=== PATIENT | female | born 1950 | race Caucasian/White ===

== ENCOUNTER → 2017-09-11 | Outpatient (CLI) | payer MEDICARE ==
[2017-09-11 11:33] LABS: Bilirubin, Delta 0.2 mg/dL (0.0-0.2); Potassium 4.4 mmol/L (3.5-5.1); Total Bilirubin 0.3 mg/dL (0.2-1.3); Total Protein 7.4 g/dL (6.3-8.2)
[2017-09-11 11:51] LABS: Hemoglobin A1C 8.2 % (4.2-6.1)
== END | disposition home or self-care (01) ==
LOC: LABWHC1 08:29
PROVIDERS: ATTEND Internal Medicine
DX: I10 Essential (primary) hypertension (principal); E78.5 Hyperlipidemia, unspecified; E11.9 Type 2 diabetes mellitus without complications
CPT/HCPCS: 36415; 80051; 80061; 80076; 82565; 83036; 84520

== ENCOUNTER → 2017-09-27 | Outpatient (CLI) | payer MEDICARE ==
[2017-09-27 08:21] LABS: Blood Urea Nitrogen 30 mg/dL (7-17); Non-African American GFR(MDRD) 55 (>60 ml/min/1.73 sqM)
--- NOTE | 2017-09-27 14:10 | US ---
EXAMINATION TYPE: US kidneys/renal and bladder DATE OF EXAM: 09/27/2017 COMPARISON: NONE CLINICAL HISTORY: R94.5 elevated renal test. Elevated renal function test, diabetes EXAM MEASUREMENTS: Right Kidney: 10.6 x 4.6 x 4.6 cm Left Kidney: 11.1 x 5.0 x 4.7 cm Right Kidney: no evidence of hydronephrosis or mass. No evidence of hydronephrosis. Left Kidney: cystic area mid = 0.7 x 0.5 x 0.6cm with a well-defined posterior wall but no definitive increased through transmission. No hydronephrosis. Bladder: appears wnl Bilateral Jets seen: yes There is no evidence for hydronephrosis at this point in time. No nephrolithiasis is seen. The urina ry bladder is anechoic. Bilateral ureteral jets are seen. IMPRESSION: 1. No evidence of hydronephrosis or nephrolithiasis. 2. Probable 7 mm left renal cyst.
== END | disposition home or self-care (01) ==
LOC: RADUSWWP 07:41
PROVIDERS: ATTEND Internal Medicine
DX: R94.4 Abnormal results of kidney function studies (principal); N28.9 Disorder of kidney and ureter, unspecified
CPT/HCPCS: 36415; 76770; 82565; 84520

== ENCOUNTER → 2017-10-27 | Outpatient (CLI) | payer MEDICARE ==
[2017-10-27 11:19] LABS: Anion Gap 8 mmol/L; Blood Urea Nitrogen 16 mg/dL (7-17); Carbon Dioxide 28 mmol/L (22-30); Chloride 105 mmol/L (98-107); Non-African American GFR(MDRD) >60 (>60 ml/min/1.73 sqM); Potassium 4.7 mmol/L (3.5-5.1); Sodium 141 mmol/L (137-145)
== END | disposition home or self-care (01) ==
LOC: LABWHC1 10:16
PROVIDERS: ATTEND Physician Assistant
DX: N28.9 Disorder of kidney and ureter, unspecified (principal); I10 Essential (primary) hypertension
CPT/HCPCS: 36415; 80051; 82565; 84520

== ENCOUNTER 2018-12-14 22:51 | Emergency (ER) | payer MEDICARE ==
[2018-12-14 23:33] VITALS: RESP 18
[2018-12-15] MEDS ORDERED: PROPARACAINE 0.5% OPHTH DROPS 15 ML BTL BOTH EYES STA (00:01)
[2018-12-15] MEDS ORDERED: MOXIFLOXACIN HCL 0.5% DROPS 3 ML BTL RIGHT EYE STA (00:17)
--- NOTE | 2018-12-15 00:39 | ED ---
Eye Problem HPI - General Chief complaint: Eye Problems Stated complaint: [facility] soap in eye Time Seen by Provider: 12/14/18 23:57 Source: patient, family, RN notes reviewed, old records reviewed Mode of arrival: ambulatory Limitations: no limitations - History of Present Illness Initial comments: 68 year old female with history of cataract removal years ago presents with left eye pain after soap was squirted in the eye. She has attemptod to flush with no relief. MD chief complaint: eye pain Onset/Timin -: hour(s) Onset Description: sudden Location: left eye If Injury: other (soap squirted in eye) Eye Symptoms: burning, redness, discharge, blurry vision Severity: moderate Treatments Prior to Arrival: irrigated eye - Related Data Home Medications Medication Instructions Recorded Confirmed Aspirin 81 mg PO DAILY 12/18/14 12/14/18 Qnrwjuxybx-RWJ-Gecturi-Codeine 1 - 2 each PO DAILY PRN 12/18/14 12/14/18 [Fiorinal w/Cod 63-516-66-30MG] Ibuprofen [Motrin] 800 mg PO BID PRN 12/18/14 12/14/18 Insulin Aspart Protam & Aspart 30 unit SQ AC-SUPPER 12/18/14 12/14/18 [NovoLOG Mix 70-30 Flexpen] Insulin Aspart Protam & Aspart 50 unit SQ AC-BRKFST 12/18/14 12/14/18 [NovoLOG Mix 70-30 Flexpen] Moxifloxacin HCl [Avelox] 400 mg PO 1800 12/18/14 12/14/18 Olmesartan Medoxomil [Benicar] 40 mg PO DAILY 12/18/14 12/14/18 Pravastatin Sodium [Pravachol] 20 mg PO HS 12/18/14 12/14/18 Pregabalin [Lyrica] 50 mg PO HS 12/18/14 12/14/18 Propranolol HCl [Propranolol HCl 160 mg PO DAILY 12/18/14 12/14/18 ER] glipiZIDE/METFORMIN HCL 2 each PO BID 12/18/14 12/14/18 [glipiZIDE/METFORMIN HCL 5-500 mg] Allergies Allergy/AdvReac Type Severity Reaction Status Date / Time Penicillins Allergy Rash/Hives Verified 12/14/18 23:33 Review of Systems ROS Statement: Those systems with pertinent positive or pertinent negative responses have been documented in the HPI. ROS Other: All systems not noted in ROS Statement are negative. Past Medical History Past Medical History: Diabetes Mellitus, Hyperlipidemia, Hypertension, Pneumonia Additional Past Medical History / Comment(s): migraines,bronchitis, "chest xray showed inflammation in my lung", History of Any Multi-Drug Resistant Organisms: None Reported Past Surgical History: Breast Surgery, Section, Tonsillectomy Additional Past Surgical History / Comment(s): amadou mastectomy- left lymphadenectomy, cataracts, Past Anesthesia/Blood Transfusion Reactions: Motion Sickness, Postoperative Nausea & Vomiting (PONV) Past Psychological History: No Psychological Hx Reported Smoking Status: Never smoker Past Alcohol Use History: None Reported Past Drug Use History: None Reported - Past Family History Mother Family Medical History: Cancer Sister(s) Family Medical History: Cancer General Exam - General Exam Comments Initial Comments: 68 year old female, no distress. Limitations: no limitations General appearance: alert, in no apparent distress Head exam: Present: atraumatic, normocephalic, normal inspection Eye exam: Present: PERRL, EOMI. Absent: normal appearance (left eye injection. Small 2m corneal abrasion over medial pupil and 11 oclock position), scleral icterus, conjunctival injection, periorbital swelling ENT exam: Present: normal exam, mucous membranes moist Neck exam: Present: normal inspection. Absent: tenderness, meningismus, lymphadenopathy Respiratory exam: Present: normal lung sounds bilaterally. Absent: respiratory distress, wheezes, rales, rhonchi, stridor Cardiovascular Exam: Present: regular rate, normal rhythm, normal heart sounds. Absent: systolic murmur, diastolic murmur, rubs, gallop, clicks GI/Abdominal exam: Present: soft, normal bowel sounds. Absent: distended, tenderness, guarding, rebound, rigid Course Vital Signs 12/14/18 12/15/18 23:29 00:54 Temperature 97.9 F 98.1 F Pulse Rate 80 66 Respiratory 18 18 Rate Blood Pressure 184/73 143/73 O2 Sat by Pulse 97 98 Oximetry Medical Decision Making - Medical Decision Making 68 year old female with left eye pain after soap exposure in eye. Dsciscussed patient has flushed at this ooint nect time she would be treated. she has small corneal abrasion at pupill to 11 o clock position fo r one day. . She compans as well for hair appt, discusessed patient will have refferal to pedicure and fall necessetities. Discussed PCP and optho follow up. Disposition Clinical Impression: Corneal abrasion, Foreign body, eye Disposition: HOME SELF-CARE Condition: Good Instructions: Corneal Abrasion (ED) Additional Instructions: Patient advised to follow up with primary care physician in tile setter. Use the eye drops every 4 hours as directed. If symptoms continue to persist after the next 1-2 days follow-up with ophthalmology. Return to emergency department if any alarming signs or symptoms occur. Is patient prescribed a controlled substance at d/c from ED?: No Referrals: Kay Martinez MD [Primary Care Provider] - 1-2 days Soren Jovel MD [STAFF PHYSICIAN] - 1-2 days Time of Disposition: 00:38
[2018-12-15 00:55] VITALS: BP 143/73; PULSE 66; TEMP 98.1
== END 2018-12-15 00:57 | disposition home or self-care (01) ==
LOC: EC 22:51
DX: T15.02XA Foreign body in cornea, left eye, initial encounter (principal); E78.5 Hyperlipidemia, unspecified; I10 Essential (primary) hypertension; E11.9 Type 2 diabetes mellitus without complications; Z88.0 Allergy status to penicillin; Z79.4 Long term (current) use of insulin; Z79.82 Long term (current) use of aspirin; Z79.899 Other long term (current) drug therapy; Z87.01 Personal history of pneumonia (recurrent); Z87.09 Personal history of other diseases of the respiratory system; Z98.890 Other specified postprocedural states
CPT/HCPCS: 99283

== ENCOUNTER → 2019-01-18 | Outpatient (CLI) | payer MEDICARE ==
--- NOTE | 2019-01-18 15:55 | US ---
EXAMINATION TYPE: US transvaginal DATE OF EXAM: 01/18/2019 COMPARISON: NONE CLINICAL HISTORY: N92.1 Excessive and frequent menstruation. post menopausal bleeding for two weeks. TECHNIQUE: Transvaginal (TV). Date of LMP: post menopausal, no HRT. EXAM MEASUREMENTS: Uterus: 7.6 x 3.9 x 4.5 cm Endometrial Stripe: 2.0 cm Right Ovary: not identified Left Ovary: not identified 1. Uterus: Retroverted wnl 2. Endometrium: thickened and irregular 3. Right Ovary: not identified 4. Left Ovary: not identified. 5. Bilateral Adnexa: wnl 6. Posterior cul-de-sac: no free fluid IMPRESSION: 1. Thickened endometrial stripe at 2.0 cm. 2. There is some limitation with nonvisualization of the ovaries during the exam.
== END | disposition home or self-care (01) ==
LOC: RADUSWWP 15:17
PROVIDERS: ATTEND Internal Medicine
DX: R93.89 Abnormal findings on diagnostic imaging of other specified body structures (principal); N92.1 Excessive and frequent menstruation with irregular cycle; N94.6 Dysmenorrhea, unspecified; Z88.0 Allergy status to penicillin
CPT/HCPCS: 76830

== ENCOUNTER → 2019-03-06 | Outpatient (CLI) | payer MEDICARE ==
[2019-03-06 13:29] LABS: Basophils % (A) 1 %; Eosinophils # (A) 0.2 k/uL (0-0.7); Eosinophils % (A) 4 %; HCT 45.2 % (34.0-46.0); HGB 14.9 gm/dL (11.4-16.0); Lymphocytes # (A) 1.6 k/uL (1.0-4.8); Lymphocytes % (A) 27 %; MCH 28.9 pg (25.0-35.0); MCV 87.7 fL (80.0-100.0); Mean Platelet Volume 8.7; Monocytes # (A) 0.2 k/uL (0-1.0); Monocytes % (A) 4 %; Neutrophils # (A) 3.6 k/uL (1.3-7.7); Neutrophils % (A) 63 %; Platelet Count 172 k/uL (150-450); RBC 5.15 m/uL (3.80-5.40); RDW 15.2 % (11.5-15.5); WBC 5.8 k/uL (3.8-10.6)
== END | disposition home or self-care (01) ==
LOC: LABWHC1 12:16
PROVIDERS: ATTEND Obstetrics & Gynecology
DX: Z01.818 Encounter for other preprocedural examination (principal); Z01.812 Encounter for preprocedural laboratory examination
CPT/HCPCS: 36415; 85025; 93005

== ENCOUNTER 2019-03-14 07:17 | Day surgery (SDC) | payer MEDICARE ==
[2019-03-11 13:20] VITALS: BMI 39.4
[~2019-03-14 07:17] MED LIST: DEXAMETHASONE SOD PHOSPHATE 10 MG/ML 1 ML VIAL IV ONE; HYDROmorphone 0.5 MG/0.5 ML SYRINGE IVP PRN; LACTATED RINGERS 1,000 ML IV SCH; LIDOCAINE 1% 20 ML VIAL (10MG/ML) FOR IV START INTRADERMA PRN; ONDANSETRON 4 MG/2 ML VIAL IVP ONE; Pre Op ABX Message 1 EACH MISC MISCELLANE ONE
--- NOTE | 2019-03-14 07:18 | P.HPOB ---
History of Present Illness H&P Date: 03/14/19 Chief Complaint: Postmenopausal bleeding 69-year-old presents for D&C hysteroscopy due to postmenopausal bleeding and endometrial thickening on ultrasound. Review of Systems All systems: negative Constitutional: Denies chills, Denies fever Eyes: denies blurred vision, denies pain Ears, nose, mouth and throat: Denies headache, Denies sore throat Cardiovascular: Denies chest pain, Denies shortness of breath Respiratory: Denies cough Gastrointestinal: Denies abdominal pain, Denies diarrhea, Denies nausea, Denies vomiting Genitourinary: Denies dysuria, Denies hematuria Musculoskeletal: Denies myalgias Integumentary: Denies pruritus, Denies rash Neurological: Denies numbness, Denies weakness Psychiatric: Denies anxiety, Denies depression Endocrine: Denies fatigue, Denies weight change Past Medical History Past Medical History: Cancer, Diabetes Mellitus, Hyperlipidemia, Hypertension Additional Past Medical History / Comment(s): migraines,bronchitis, "chest xray showed inflammation in my lung", HX BREAST CANCER AMD LT LYMPHADENOPATHY. POST MENOPAUSAL BLEEDING History of Any Multi-Drug Resistant Organisms: None Reported Past Surgical History: Breast Surgery, Section, Tonsillectomy Additional Past Surgical History / Comment(s): amadou mastectomy- left lymphadenectomy, cataracts, BRONCHOSCOPY WITH REMOVAL OF MUCUS PLUG FROM RT MIDDLE LOBE Past Anesthesia/Blood Transfusion Reactions: Motion Sickness, Postoperative Nausea & Vomiting (PONV) Smoking Status: Never smoker - Past Family History Mother Family Medical History: Cancer Sister(s) Family Medical History: Cancer Medications and Allergies Home Medications Medication Instructions Recorded Confirmed Type Aspirin 81 mg PO DAILY 12/18/14 03/11/19 History Hzbotljqlu-RQY-Mcqmkjz-Codeine 1 - 2 each PO DAILY PRN 12/18/14 03/11/19 History [Fiorinal w/Cod 32-842-31-30MG] Pregabalin [Lyrica] 50 mg PO HS 12/18/14 03/11/19 History Propranolol HCl [Propranolol HCl 160 mg PO DAILY 12/18/14 03/11/19 History ER] Furosemide [Lasix] 20 mg PO Q2D 03/11/19 03/11/19 History Glimepiride [Amaryl] 2 mg PO BID 03/11/19 03/11/19 History Insulin Lispro Protamin/Lispro 70 unit SQ BID 03/11/19 03/11/19 History [Humalog Mix 75-25 Kwikpen] LORazepam [Ativan] 0.5 mg PO DAILY PRN 03/11/19 03/11/19 History Meclizine [Antivert] 25 mg PO DAILY PRN 03/11/19 03/11/19 History Pravastatin Sodium [Pravachol] 20 mg PO HS 03/11/19 03/11/19 History amLODIPine BESYLATE 10 mg PO DAILY 03/11/19 03/11/19 History Allergies Allergy/AdvReac Type Severity Reaction Status Date / Time Penicillins Allergy Rash/Hives Verified 03/11/19 13:06 Exam Osteopathic Statement: *. No significant issues noted on an osteopathic structural exam other than those noted in the History and Physical/Consult. Heart: Regular rate and rhythm Lungs: Clear to auscultation bilaterally Abdomen: Soft, nontender Extremities: Negative Homans sign Assessment and Plan (1) Postmenopausal bleeding Status: Acute Code(s): N95.0 - POSTMENOPAUSAL BLEEDING SNOMED Code(s): 39055789 Plan: 1. D&C hysteroscopy
[2019-03-14 07:59] LABS: Glucose,Whole Blood 119 mg/dL (75-99)
[2019-03-14] MEDS: MIDAZOLAM 2 MG/2 ML VIAL IVP ONE ×2 (08:09→08:11)
[2019-03-14] MEDS ORDERED: LIDOCAINE 1% INJ 10MG/ML (20 ML MDV) ONE (08:45)
[2019-03-14] MEDS ORDERED: PROPOFOL 10 MG/ML 20 ML VIAL IV ONE (08:45)
[2019-03-14] MEDS ORDERED: MIDAZOLAM 2 MG/2 ML VIAL ONE (08:45)
[2019-03-14] MEDS ORDERED: fentaNYL (PF) 50 MCG/ML 2 ML AMP ONE (08:45)
--- NOTE | 2019-03-14 08:45 | P.OP ---
Date of Procedure: 03/14/19 Preoperative Diagnosis: 1. Post menopausal bleeding Postoperative Diagnosis: 1. Post menopausal bleeding Procedure(s) Performed: D&C with polypectomy and hysteroscopy Anesthesia: MAC Surgeon: Sherry Mariano Estimated Blood Loss (ml): 5 IV fluids (ml): 300 Urine output (ml): 75 Pathology: other (Endometrial curettings with polyp) Condition: stable Disposition: PACU Indications for Procedure: This is a 69-year-old presenting for D&C hysteroscopy due to postmenopausal bleeding. She did have an ultrasound that showed a 2 cm endometrial thickening. Operative Findings: Uterus sounded to 9 cm, hysteroscopy showed mostly a smooth contour of the uterus but there was a large polyp on the left side. Description of Procedure: Patient is taken the operating room where general anesthesia was obtained without difficulty. She is prepped and draped in normal sterile fashion dorsal lithotomy position, legs placed in candycane stirrups. Bladder was drained of all urine. Weighted speculum placed in the vagina the anterior lip the cervix was grasped with single-tooth tenaculum. The cervix was dilated to #7 Hegar dilator. Uterus sounded to 9 cm. Hysteroscopy was then performed. There was some blood and mucus going into the endometrial cavity, and a polyp noted along the posterior left wall of the uterus in the lower uterine segment. A sharp curette was then gently used to obtain endometrial curettings and polyp forceps were also used. Moderate amount of endometrial curettings including was believed to be that polyp was removed and sent to pathology. All instruments removed from the vagina. Patient tolerated the procedure well. Sponge and instrument counts are correct 2. She was taken to recovery room in stable condition.
[2019-03-14 09:24] VITALS: TEMP 97.3
[2019-03-14] MEDS ORDERED: KETOROLAC 30 MG/ML 1 ML VIAL IVP ONE (09:33)
[2019-03-14 09:36] LABS: Glucose,Whole Blood 137 mg/dL (75-99)
[2019-03-14 10:40] VITALS: BP 126/60
[2019-03-14 10:46] VITALS: PULSE 59; RESP 16
== END 2019-03-14 11:34 | disposition home or self-care (01) ==
LOC: OR 07:17
PROVIDERS: ATTEND Obstetrics & Gynecology
DX: C54.1 Malignant neoplasm of endometrium (principal); E11.9 Type 2 diabetes mellitus without complications; E78.5 Hyperlipidemia, unspecified; I10 Essential (primary) hypertension; Z79.4 Long term (current) use of insulin; Z79.82 Long term (current) use of aspirin; Z85.3 Personal history of malignant neoplasm of breast; Z88.0 Allergy status to penicillin; Z79.899 Other long term (current) drug therapy
CPT/HCPCS: 88305; 88342; 88341; 58558; J2250; J1100; J2405; J2001; J3010; J1885; J2704

== ENCOUNTER → 2019-03-29 | Outpatient (CLI) | payer MEDICARE ==
[2019-03-29 10:55] LABS: Albumin 4.5 g/dL (3.80-4.90); Albumin/Globulin Ratio 2.14 (1.60-3.17); Anion Gap 9.6 mmol/L (4.00-12.00); Calcium 9.3 mg/dL (8.7-10.3); Carbon Dioxide 24.4 mmol/L (21.6-31.8); Globulin 2.1 g/dL (1.6-3.3); LDL Cholesterol,Calculated 100.8 mg/dL (0.0-131.0); Potassium 3.9 mmol/L (3.5-5.5); Total Bilirubin 0.9 mg/dL (0.3-1.2); Total Protein 6.6 g/dL (6.2-8.2); VLDL Calculation 17.2 mg/dL (5.00-40.00)
[2019-03-29 16:04] LABS: Hemoglobin A1C 9.4 % (4.0-6.0)
== END | disposition home or self-care (01) ==
LOC: LABWHC1 06:57
PROVIDERS: ATTEND Internal Medicine
DX: I12.9 Hypertensive chronic kidney disease with stage 1 through stage 4 chronic kidney disease, or unspecified chronic kidney disease (principal); N18.9 Chronic kidney disease, unspecified; E11.22 Type 2 diabetes mellitus with diabetic chronic kidney disease
CPT/HCPCS: 36415; 80053; 80061; 83036

== ENCOUNTER → 2019-10-21 | Outpatient (CLI) | payer MEDICARE ==
[2019-10-21 15:50] LABS: African American GFR (CKD) 75.1 (60.0-200.0); Anion Gap 7.3 mmol/L (4.00-12.00); BUN/Creat Ratio 25.56 Ratio (12.00-20.00); Calcium 9.2 mg/dL (8.7-10.3); Carbon Dioxide 26.7 mmol/L (21.6-31.8); Non-African American GFR(CKD) 64.8 (60.0-200.0); Potassium 4.3 mmol/L (3.5-5.5)
[2019-10-21 16:50] LABS: Hemoglobin A1C 11.4 % (4.0-6.0)
== END | disposition home or self-care (01) ==
LOC: LABWHC1 09:11
PROVIDERS: ATTEND Internal Medicine
DX: I10 Essential (primary) hypertension (principal); E11.9 Type 2 diabetes mellitus without complications
CPT/HCPCS: 36415; 80048; 83036

== ENCOUNTER → 2019-10-25 | Outpatient (CLI) | payer MEDICARE ==
--- NOTE | 2019-10-25 14:38 | CT ---
EXAMINATION TYPE: CT abdomen pelvis w con DATE OF EXAM: 10/25/2019 COMPARISON: None HISTORY: History of breast and endometrial cancer. Complete hysterectomy . CT DLP: 1787 mGycm CONTRAST: CT scan of the abdomen and pelvis is performed with Oral Contrast and with IV Contrast, patient injec ruben with 100 mL of Isovue M300. FINDINGS: LUNG BASES-: No visible nodule. No infiltrate. LIVER/GB: There is evidence of hepatic steatosis. No calcified gallstones. No space occupying hepat ic lesion. Biliary tree is of normal caliber. PANCREAS: No inflammation. No distinct mass. SPLEEN: No splenic enlargement. No lesion seen. ADRENALS: No nodule. No thickening. KIDNEYS/BLADDER: No hydronephrosis. No nephrolithiasis. No distinct renal mass. Urinary bladder g rossly unremarkable. BOWEL: Normal appendix. Normal bowel caliber. No inflammation. Diverticulosis without evidence of d iverticulitis. GENITAL ORGANS: Hysterectomy changes noted. Unremarkable appearing vaginal cuff. The ovaries are not clearly visualized. LYMPH NODES: No greater than 1cm abdominal or pelvic lymph nodes are appreciated. AORTA: No significant abnormality. OSSEOUS STRUCTURES: No significant abnormality is seen. OTHER: No significant additional abnormality is seen. IMPRESSION: 1. No evidence for recurrent disease or metastatic disease. 2. Hepatic steatosis.
== END | disposition home or self-care (01) ==
LOC: RADCTMAIN 12:20
PROVIDERS: ATTEND Obstetrics & Gynecology
DX: Z08 Encounter for follow-up examination after completed treatment for malignant neoplasm (principal); K76.0 Fatty (change of) liver, not elsewhere classified; Z85.42 Personal history of malignant neoplasm of other parts of uterus
CPT/HCPCS: 74177

== ENCOUNTER → 2020-05-28 | Outpatient (CLI) | payer MEDICARE ==
[2020-05-28 08:34] LABS: HCT 38.9 % (34.0-46.0); HGB 12.7 gm/dL (11.4-16.0); Hypochromasia Slight; MCH 30.8 pg (25.0-35.0); MCHC 32.6 g/dL (31.0-37.0); MCV 94.4 fL (80.0-100.0); Mean Platelet Volume 9.7; Platelet Count 138 k/uL (150-450); RBC 4.12 m/uL (3.80-5.40); RDW 13.6 % (11.5-15.5)
[2020-05-28 17:16] LABS: African American GFR (CKD) 65.6 (60.0-200.0); Albumin/Globulin Ratio 1.82 (1.60-3.17); Anion Gap 11.2 mmol/L (4.00-12.00); Carbon Dioxide 21.8 mmol/L (21.6-31.8); Chol/HDL Ratio 3.68; Globulin 2.2 g/dL (1.6-3.3); Non-African American GFR(CKD) 56.6 (60.0-200.0); Potassium 3.9 mmol/L (3.5-5.5); Total Bilirubin 0.5 mg/dL (0.2-1.2); Total Protein 6.2 g/dL (6.2-8.2)
[2020-05-28 17:22] LABS: T4, Free (Free Thyroxine) 1.1 ng/dL (0.80-1.80)
[2020-05-28 19:55] LABS: Hemoglobin A1C 10.5 % (4.0-6.0)
== END | disposition home or self-care (01) ==
LOC: LABWHC1 07:51
PROVIDERS: ATTEND Obstetrics & Gynecology
DX: I10 Essential (primary) hypertension (principal); E11.9 Type 2 diabetes mellitus without complications; E78.5 Hyperlipidemia, unspecified; R53.83 Other fatigue; N19 Unspecified kidney failure
CPT/HCPCS: 36415; 80053; 80061; 83036; 84439; 84443; 84481; 85027

== ENCOUNTER → 2020-06-12 | Outpatient (CLI) | payer MEDICARE ==
--- NOTE | 2020-06-12 15:58 | CT ---
EXAMINATION TYPE: CT abdomen pelvis w con DATE OF EXAM: 06/12/2020 COMPARISON: 10/25/2019 HISTORY: Hx endometrial/breast ca CT DLP: 1977.70 mGycm CONTRAST: CT scan of the abdomen and pelvis is performed with Oral Contrast and with IV Contrast, patient injec ruben with 100 mL of Isovue 300. FINDINGS: LUNG BASES-: No visible nodule. No infiltrate. LIVER/GB: No calcified gallstones. Hepatic steatosis. No space occupying hepatic lesion. Biliary t ree is of normal caliber. PANCREAS: No inflammation. No distinct mass. SPLEEN: No splenic enlargement. No lesion seen. ADRENALS: No nodule. No thickening. KIDNEYS/BLADDER: No hydronephrosis. No nephrolithiasis. No distinct renal mass. Urinary bladder g rossly unremarkable. BOWEL: Normal appendix. Normal bowel caliber. No inflammation. GENITAL ORGANS: Hysterectomy changes noted. No evidence for recurrent or residual mass. No adnexal m ass. LYMPH NODES: No greater than 1cm abdominal or pelvic lymph nodes are appreciated. AORTA: No significant abnormality. OSSEOUS STRUCTURES: No significant abnormality is seen. OTHER: No significant additional abnormality is seen. IMPRESSION: 1.
== END | disposition home or self-care (01) ==
LOC: RADCTMAIN 13:35
PROVIDERS: ATTEND Obstetrics & Gynecology
DX: Z08 Encounter for follow-up examination after completed treatment for malignant neoplasm (principal); Z85.42 Personal history of malignant neoplasm of other parts of uterus; Z85.3 Personal history of malignant neoplasm of breast
CPT/HCPCS: 82565; 84520; 74177; Q9967

== ENCOUNTER → 2021-08-17 | Outpatient (CLI) | payer MEDICARE ==
--- NOTE | 2021-08-17 10:35 | XR ---
EXAMINATION TYPE: XR chest 2V DATE OF EXAM: 08/17/2021 COMPARISON: None INDICATION: Endometrial cancer, observation for metastases TECHNIQUE: Frontal and lateral views of the chest are obtained. FINDINGS: The heart size is normal. The pulmonary vasculature is normal. The lungs are clear. No suspicious nodules or mediastinal widening is evident. Loop recorder overlie s left chest. IMPRESSION: 1. No acute pulmonary process.
== END | disposition home or self-care (01) ==
LOC: RADXRMAIN 09:50
PROVIDERS: ATTEND Obstetrics & Gynecology
DX: C54.1 Malignant neoplasm of endometrium (principal)
CPT/HCPCS: 71046

== ENCOUNTER → 2021-08-27 | Outpatient (CLI) | payer MEDICARE ==
[2021-08-27 13:45] LABS: African American GFR (CKD) >90 (>60 ml/min/1.73 sqM); Blood Urea Nitrogen 20 mg/dL (7-17); Non-African American GFR(CKD) 87 (>60 ml/min/1.73 sqM)
--- NOTE | 2021-08-27 15:36 | CT ---
EXAMINATION TYPE: CT abdomen pelvis w con DATE OF EXAM: 08/27/2021 HISTORY: Endometrial cancer with mets. CT DLP: 1683.3mGycm Automated Exposure Control for Dose Reduction was Utilized. CONTRAST: CT scan of the abdomen and pelvis is performed with oral and with IV Contrast, patient injected with 100 mL of Isovue M300. COMPARISON: Prior CT June 12, 2020 and older study October 25, 2019 FINDINGS: LUNG BASES: No significant abnormality is appreciated. LIVER/GB: Prior visualized lesion along the right aspect of liver not clearly identified on current s tudy near axial image 24. PANCREAS: Mild generalized atrophy report demonstrated. SPLEEN: No significant abnormality is seen. ADRENALS: No significant abnormality is seen. KIDNEYS: No significant abnormality is seen. BOWEL: Some diverticula in the left and sigmoid colon. No CT evidence for acute diverticulitis. No thakkar spicious small or large bowel dilatation. Normal appearing appendix from cecum right lower quadrant. UTERUS/ADNEXA: Uterus is surgically absent. LYMPH NODES: No new greater than 1cm abdominal or pelvic lymph nodes are appreciated. Some prominent but subcentimeter retroperitoneal lymph nodes are not significantly changed from most recent CT for e xample left external iliac chain lymph node axial image 71 OSSEOUS STRUCTURES: Moderate axial joint space loss in both hips. OTHER: No significant additional abnormality is seen. IMPRESSION: Positive treatment response or surgical excision of the lesion adjacent to right hepatic lobe. No new suspicious mass or adenopathy identified
== END | disposition home or self-care (01) ==
LOC: RADCTMAIN 12:48
PROVIDERS: ATTEND Obstetrics & Gynecology
DX: K57.30 Diverticulosis of large intestine without perforation or abscess without bleeding (principal); K86.89 Other specified diseases of pancreas; Z85.42 Personal history of malignant neoplasm of other parts of uterus
CPT/HCPCS: 82565; 84520; 74177; 36415; Q9967 ×2

== ENCOUNTER → 2021-10-14 | Outpatient (CLI) | payer MEDICARE ==
--- NOTE | 2021-10-14 15:12 | BD ---
EXAMINATION TYPE: Axial Bone Density DATE OF EXAM: 10/14/2021 COMPARISON: NONE CLINICAL HISTORY: Height: 63 Weight: 199.2 FRAX RISK QUESTIONS: Alcohol (3 or more units per day): no Family History (Parent hip fracture): no Glucocorticoids (More than 3mos): no (Ex: prednisone, prednisolone, methylprednisolone, dexamethasone, and hydrocortisone). History of Fracture in Adulthood: no Secondary Osteoporosis: 1. Type 1 Diabetes: no 2. Hyperthyroidism: no 3. Menopause before 45: no 4. Malnutrition: no 5. Chronic liver disease: no Rheumatoid Arthritis: no Current Tobacco Use: no RISK FACTORS HISTORY OF: Surgery to Spine/Hip(right/left)/Wrist (right/left): no Family History of Osteoporosis: yes Active: no Diet low in dairy products/other sources of calcium: yes Postmenopausal woman: yes Lost more than 2 inches in height since high school: no MEDICATIONS: metformin, Xarelto, heart meds, blood pressure, cholesterol, vitamins, generic of lyrica , muscle relaxers, Additional History: EXAM MEASUREMENTS: Bone mineral densitometry was performed using the [employer] System. Bone mineral density as measured about the Lumbar spine is: ----- L1-L4(G/cm2): 1.213 T Score Values are as follows: ----- L2: 0.5 ----- L3: 1.7 ----- L4: -0.1 ----- L1-L4: 0.3 Bone mineral density : baseline Bone mineral density about the R hip (g/cm2): 0.732 Bone mineral density about the L hip (g/cm2): 0.690 T Score values are as follows: -----R Neck: -2.2 -----L Neck: -2.5 -----R Total: -1.9 -----L Total: -1.5 Bone mineral density : baseline IMPRESSION: Osteopenia bilateral femora. NOTE: T-SCORE=SD OF THE YOUNG ADULT MEAN.
== END ==
LOC: RADBDWWP 13:57
PROVIDERS: ATTEND Internal Medicine Endocrinology, Diabetes & Metabolism
DX: M81.0 Age-related osteoporosis without current pathological fracture (principal)
CPT/HCPCS: 77080

== ENCOUNTER → 2021-10-15 | Outpatient (CLI) | payer MEDICARE ==
[2021-10-15 17:39] LABS: ALT 13 U/L (8-44); AST 17 U/L (13-35); African American GFR (CKD) 85.4 (60.0-200.0); Albumin 4.3 g/dL (3.8-4.9); Albumin/Globulin Ratio 1.87 (1.60-3.17); Alkaline Phosphatase 81 U/L (41-126); Calcium 9.7 mg/dL (8.7-10.3); Carbon Dioxide 22.1 mmol/L (21.6-31.8); Chloride 105 mmol/L (96-109); Chol/HDL Ratio 3.71 Ratio; Globulin 2.3 g/dL (1.6-3.3); Glucose 134 mg/dL (70-110); LDL Cholesterol,Calculated 103.9 mg/dL (0.0-131.0); Non-African American GFR(CKD) 73.7 (60.0-200.0); Potassium 4.1 mmol/L (3.5-5.5); Sodium 141 mmol/L (135-145); Total Protein 6.6 g/dL (6.2-8.2); VLDL Calculation 18.76 mg/dL (5.00-40.00)
[2021-10-15 22:03] LABS: Microalbumin Creatinine Ratio <30 mg/g Creat (0-30); Urine Creatinine 68.6 mg/dL (28.0-217.0)
== END | disposition home or self-care (01) ==
LOC: LABWHC1 08:37
PROVIDERS: ATTEND Internal Medicine Endocrinology, Diabetes & Metabolism
DX: E11.65 Type 2 diabetes mellitus with hyperglycemia (principal)
CPT/HCPCS: 36415; 80053; 80061; 82043; 82570; 82607; 83036; 84443

== ENCOUNTER → 2022-01-27 | Outpatient (CLI) | payer MEDICARE ==
[2022-01-27 15:53] LABS: ALT 19 U/L (8-44); AST 14 U/L (13-35); Albumin 4.4 g/dL (3.8-4.9); Albumin/Globulin Ratio 1.91 (1.60-3.17); Alkaline Phosphatase 80 U/L (41-126); BUN/Creat Ratio 23.89 Ratio (12.00-20.00); Blood Urea Nitrogen 21.5 mg/dL (9.0-27.0); Calcium 9.5 mg/dL (8.7-10.3); Carbon Dioxide 22.4 mmol/L (20.0-27.5); Chloride 106 mmol/L (96-109); Chol/HDL Ratio 2.87 Ratio; Globulin 2.3 g/dL (1.6-3.3); Glucose 158 mg/dL (70-110); LDL Cholesterol,Calculated 81.3 mg/dL (0.0-131.0); Non-African American GFR(CKD) 63.9 (60.0-200.0); Potassium 4.3 mmol/L (3.5-5.5); Sodium 141 mmol/L (135-145); Total Protein 6.7 g/dL (6.2-8.2); VLDL Calculation 16.54 mg/dL (5.00-40.00)
[2022-01-27 21:07] LABS: Urine Creatinine 82.6 mg/dL (28.0-217.0)
== END | disposition home or self-care (01) ==
LOC: LABWHC1 09:33
PROVIDERS: ATTEND Internal Medicine Endocrinology, Diabetes & Metabolism
DX: E11.65 Type 2 diabetes mellitus with hyperglycemia (principal)
CPT/HCPCS: 36415; 80053; 80061; 82043; 82570; 83036; 84443

== ENCOUNTER → 2022-02-07 | Outpatient (CLI) | payer MEDICARE ==
--- NOTE | 2022-02-07 15:01 | CT ---
EXAMINATION TYPE: CT ChestAbdPelvis w con DATE OF EXAM: 02/07/2022 COMPARISON: 08/27/2021, 06/12/2020, 12/19/2014 HISTORY: 72-year-old female C54.1, uterine, breast, liver and endometrium ca TECHNIQUE: Contiguous axial scanning of the chest, abdomen, and pelvis performed with IV Contrast, pa tient injected with 80ml mL of Isovue 300. Delayed images through the kidneys were obtained. Coronal/ sagittal reconstructions performed. CT DLP: 1735 mGycm Automated exposure control for dose reduction was used. FINDINGS: CHEST: Heart normal size without pericardial effusion. Aorta normal caliber with minimal atherosclerotic arch calcifications and conventional arch vessel br anching anatomy. Some type of linear metallic foreign body embedded within the subcutaneous adipose layer of the left prepectoral region. No thoracic lymphadenopathy. Patient is status post bilateral mastectomies. Scarring related to previ ous left axillary chyna dissection as well. Strandy atelectasis at the anterior right midlung. No consolidation or pleural effusion. ABDOMEN: Small hiatal hernia. Low attenuation of the hepatic parenchyma suggesting fatty infiltration There is a new bilobed mildly enhancing mass along the lateral right pararenal space measuring 9.3 cm craniocaudal and 6.8 cm wide. This abuts and scallops the inferior posterior hepatic margin. Portal venous system is patent. No biliary ductal dilatation. Gallbladder, adrenal glands, right kidney, spleen, and pancreas within normal limits. Tiny cortical cyst lateral left kidney measuring 6 mm. No dilated small bowel, free fluid, or free air. No mesenteric or retroperitoneal lymphadenopathy. Un changed scattered nonenlarged retroperitoneal nodes. Scattered colonic diverticulosis greatest in the mid sigmoid colon. A very chronic inflammatory pacheco e. Mild to moderate overall stool burden. PELVIS: Bladder urine distended. Pelvic phleboliths. No abnormal fluid collection in the pelvis. Left externa l iliac chain lymph nodes measure up to 9 mm short axis, unchanged. Right external iliac chain lymph nodes measure up to 8 mm short axis, unchanged. No progressive pelvi c lymphadenopathy seen. Patient is status post hysterectomy and bilateral salpingo-oophorectomies. BONES: Mild/moderate degenerative change in both hips. Facet arthropathy lower lumbar spine. [facility] within the lower thoracic spine. Facet arthropathy lower lumbar spine. IMPRESSION: 1. NEW BILOBED MASS IN THE LATERAL RIGHT PARARENAL SPACE POSSIBLY INVOLVING THE SEROSAL SURFACE OF TH E INFERIOR RIGHT LIVER LOBE. THIS MEASURES 9.3 X 6.8 CM. FINDINGS COMPATIBLE WITH A NEW METASTATIC DE POSIT. NO OTHER METASTATIC DISEASE SEEN. 2. SMALL HIATAL HERNIA, HEPATIC STEATOSIS, COLONIC DIVERTICULOSIS.
== END | disposition home or self-care (01) ==
LOC: RADCTMAIN 11:49
PROVIDERS: ATTEND Obstetrics & Gynecology
DX: C54.1 Malignant neoplasm of endometrium (principal); K44.9 Diaphragmatic hernia without obstruction or gangrene; K76.0 Fatty (change of) liver, not elsewhere classified; K57.30 Diverticulosis of large intestine without perforation or abscess without bleeding
CPT/HCPCS: 82565; 84520; 71260; 74177; 36415; Q9967

== ENCOUNTER → 2023-04-25 | Outpatient (CLI) | payer MEDICARE ==
--- NOTE | 2023-04-25 13:23 | CT ---
EXAMINATION TYPE: CT abdomen pelvis w con DATE OF EXAM: 04/25/2023 COMPARISON: 02/07/2022 HISTORY: abdominal mass CT DLP: 2046.1 mGycm CONTRAST: CT scan of the abdomen and pelvis is performed with Oral Contrast and with IV Contrast, patient injec ruben with 100 mL of Isovue 300. FINDINGS: LUNG BASES-: There is a 6 mm pulmonary nodule left lower lobe. No infiltrate. LIVER/GB: There is underlying hepatic steatosis. Enlarging bilobed mass adjacent to the liver in the right pararenal space measuring an estimated 16.2 x 12.5 x 12.4 cm versus prior measurement of 9.3 x 6.8 cm. Probable invasion of the hepatic serosal surface. There is significant mass effect upon the a scending colon and serosal invasion of this structure is difficult to exclude. No definite obstructiv e change noted at this time. PANCREAS: No inflammation. No distinct mass. SPLEEN: No splenic enlargement. No lesion seen. ADRENALS: No nodule. No thickening. KIDNEYS/BLADDER: No hydronephrosis. No nephrolithiasis. No distinct renal mass. Urinary bladder g rossly unremarkable. BOWEL: Normal appendix. Mass effect upon the ascending colon as noted above. No inflammation. Scatter ed colonic diverticulosis. GENITAL ORGANS: There is evidence of hysterectomy. No pelvic or adnexal masses present. LYMPH NODES: No greater than 1cm abdominal or pelvic lymph nodes are appreciated. AORTA: No significant abnormality. OSSEOUS STRUCTURES: No significant abnormality is seen. OTHER: No significant additional abnormality is seen. IMPRESSION: 1. Enlarging bilobed metastatic lesion anterior right pararenal space with probable invasion of the h epatic serosa. There is new mass effect upon the ascending colon with serosal invasion difficult to e xclude. 2. New 6 mm pulmonary nodule at the left lung base. Consider dedicated CT of the chest to exclude add itional metastatic lesions.
== END | disposition home or self-care (01) ==
LOC: RADCTMAIN 10:40
PROVIDERS: ATTEND Internal Medicine
DX: C55 Malignant neoplasm of uterus, part unspecified (principal); R91.1 Solitary pulmonary nodule; N28.89 Other specified disorders of kidney and ureter
CPT/HCPCS: 82565; 84520; 74177; 36415; Q9967

== ENCOUNTER 2023-04-26 10:50 | Inpatient (IN) | payer MEDICARE ==
[2023-04-26] MEDS ORDERED: ACETAMINOPHEN TAB 500 MG TAB PO STA (11:22)
[2023-04-26] MEDS ORDERED: SODIUM CHLORIDE 0.9% 1,000 ML IV STA (11:22)
--- NOTE | 2023-04-26 11:35 | ED ---
General Adult HPI - General Chief complaint: Weakness Stated complaint: weakness - fall Time Seen by Provider: 04/26/23 11:10 Source: patient, EMS, RN notes reviewed, old records reviewed Mode of arrival: EMS - History of Present Illness Initial comments: 73-year-old female presented for evaluation of weakness. Patient has known metastatic uterine cancer. She is new to this area. She was previously on hospice but has not arranged for hospice because she has been feeling quite good for the past few weeks. This morning she had increased weakness and difficulty getting out of bed. She does have history of atrial fibrillation and she is on metoprolol. She denies chest pain or abdominal pain. Denies focal weakness. Denies urinary symptoms. - Related Data Home Medications Medication Instructions Recorded Confirmed DULoxetine HCL [Cymbalta] 40 mg PO DAILY 04/26/23 04/26/23 Ferrous Sulfate [Feosol] 325 mg PO DAILY 04/26/23 04/26/23 LORazepam [Ativan] 1 mg PO TID PRN 04/26/23 04/26/23 Metoprolol Succinate (ER) [Toprol 25 mg PO BID 04/26/23 04/26/23 Xl] Naloxegol Oxalate [Movantik] 25 mg PO DAILY PRN 04/26/23 04/26/23 Omeprazole 20 mg PO DAILY 04/26/23 04/26/23 Ondansetron Odt [Zofran Odt] 4 mg PO Q8HR PRN 04/26/23 04/26/23 Pregabalin [Lyrica] 75 mg PO BID 04/26/23 04/26/23 Sennosides/Docusate Sodium [Senna 2 tab PO BID PRN 04/26/23 04/26/23 Plus 8.6-50 mg Tablet] hydrOXYzine HCL [Atarax] 10 - 20 mg PO HS PRN 04/26/23 04/26/23 metFORMIN HCL ER [Glucophage XR] 500 mg PO PC-BID 04/26/23 04/26/23 oxyCODONE HCL [Roxicodone] 5 mg PO Q6HR PRN 04/26/23 04/26/23 Allergies Allergy/AdvReac Type Severity Reaction Status Date / Time Penicillins Allergy Rash/Hives Verified 04/26/23 13:24 Review of Systems ROS Statement: Those systems with pertinent positive or pertinent negative responses have been documented in the HPI. ROS Other: All systems not noted in ROS Statement are negative. Past Medical History Past Medical History: Diabetes Mellitus, Hyperlipidemia, Hypertension, Pneumonia Additional Past Medical History / Comment(s): migraines,bronchitis, "chest xray showed inflammation in my lung", HX BREAST CANCER AMD LT LYMPHADENOPATHY. POST MENOPAUSAL BLEEDING History of Any Multi-Drug Resistant Organisms: None Reported Past Surgical History: Breast Surgery, Section, Tonsillectomy Additional Past Surgical History / Comment(s): amadou mastectomy- left lymphadenectomy, cataracts, Past Anesthesia/Blood Transfusion Reactions: Motion Sickness, Postoperative Nausea & Vomiting (PONV) Past Psychological History: No Psychological Hx Reported Past Alcohol Use History: None Reported Past Drug Use History: None Reported - Past Family History Mother Family Medical History: Cancer Sister(s) Family Medical History: Cancer General Exam General appearance: alert, in no apparent distress Head exam: Present: atraumatic, normocephalic Eye exam: Present: normal appearance ENT exam: Present: mucous membranes dry Neck exam: Present: normal inspection. Absent: tenderness Respiratory exam: Present: normal lung sounds bilaterally. Absent: respiratory distress, wheezes Cardiovascular Exam: Present: tachycardia, irregular rhythm GI/Abdominal exam: Present: soft. Absent: distended, tenderness, guarding Extremities exam: Present: normal inspection, normal capillary refill. Absent: pedal edema Neurological exam: Present: alert, oriented X3, CN II-XII intact. Absent: motor sensory deficit Psychiatric exam: Present: normal affect, normal mood Skin exam: Present: warm, dry, intact Course Vital Signs 04/26/23 04/26/23 11:06 13:25 Temperature 100.1 F H Pulse Rate 118 H 98 Respiratory 18 Rate Blood Pressure 93/75 O2 Sat by Pulse 94 L Oximetry Medical Decision Making - Medical Decision Making Was pt. sent in by a medical professional or institution (, PA, FOREIGN SERVICE TEACHER, urgent care, hospital, or alf...) When possible be specific @ -No Did you speak to anyone other than the patient for history (EMS, parent, family, police, friend...)? What history was obtained from this source @ -No Did you review nursing and triage notes (agree or disagree)? Why? @ -I reviewed and agree with nursing and triage notes Were old charts reviewed (outside hosp., previous admission, EMS record, old EKG, old radiological studies, urgent care reports/EKG's, alf records)? Report findings @ -No old charts were reviewed Differential Diagnosis (chest pain, altered mental status, abdominal pain women, abdominal pain men, vaginal bleeding, weakness, fever, dyspnea, syncope, headache, dizziness, GI bleed, back pain, seizure, CVA, palpatations, mental health, musculoskeletal)? @ Differential Weakness: Hypoglycemia, shock, sepsis, hyponatremia, anemia, infection, NH, ETOH, adverse medicine reaction, overdose, stroke, this is not meant to be an all-inclusive list. EKG interpreted by me (3pts min.). @ EKG: Atrial fibrillation with RVR rate of 140, QRS duration 74, QTC [address] segment elevation. X-rays interpreted by me (1pt min.). @ -Negative for acute cardiopulmonary findings CT interpreted by me (1pt min.). @ -None done U/S interpreted by me (1pt. min.). @ -None done What testing was considered but not performed or refused? (CT, X-rays, U/S, l abs)? Why? @ -None What meds were considered but not given or refused? Why? @ -None Did you discuss the management of the patient with other professionals (professionals i.e. , PA, FOREIGN SERVICE TEACHER, lab, RT, psych nurse, social service agency director, thrasher feeder, teacher, tactical debriefer officer, case work aide)? Give summary @ - Sheet Was smoking cessation discussed for >3mins.? @ -No Was critical care preformed (if so, how long)? @ -No Were there social determinants of health that impacted care today? How? (Homelessness, low income, unemployed, alcoholism, drug addiction, transportation, low edu. Level, literacy, decrease access to med. care, fci, rehab)? @ -No Was there de-escalation of care discussed even if they declined (Discuss DNR or withdrawal of care, Hospice)? DNR status @ -No What co-morbidities impacted this encounter? (DM, HTN, Smoking, COPD, CAD, Cancer, CVA, ARF, Chemo, Hep., AIDS, mental health diagnosis, sleep apnea, morbid obesity)? @ -Metastatic uterine cancer, atrial fibrillation Was patient admitted / discharged? Hospital course, mention meds given and route, prescriptions, significant lab abnormalities, going to OR and other pertinent info. @ -73-year-old female with weakness, found to be in atrial fibrillation with RVR. Patient given IV fluids and started on Cardizem. CT from yesterday was reviewed, showing enlarging right-sided abdominal mass, mass of the ascending colon, and lung nodule. This does represent worsening metastatic disease. Patient was previously on hospice and is awaiting further discussion regarding these needs in the near future. She has a mild leukocytosis, stable hemoglobin 11. She will benefit from IV fluids and rate control. Case discussed with Dr. Ulloa who will admit. Undiagnosed new problem with uncertain prognosis? @ -No Drug Therapy requiring intensive monitoring for toxicity (Heparin, Nitro, Insulin, Cardizem)? @ -No Were any procedures done? @ -No Diagnosis/symptom? @ -Itchy fibrillation with RVR, metastatic uterine cancer, dehydration Acute, or Chronic, or Acute on Chronic? @Acute on chronic Uncomplicated (without systemic symptoms) or Complicated (systemic symptoms)? @ -[Complicate Side effects of treatment? @ -No Exacerbation, Progression, or Severe Exacerbation? @ -No Poses a threat to life or bodily function? How? (Chest pain, USA, NH, pneumonia, PE, COPD, DKA, ARF, appy, cholecystitis, CVA, Diverticulitis, Homicidal, Suicidal, threat to staff... and all critical care pts) @ -[Yes - Lab Data Result diagrams: 04/26/23 11:26 04/26/23 11:26 Lab Results 04/26/23 04/26/23 04/26/23 Range/Units 11:26 11:26 11:26 WBC 13.5 H (3.8-10.6) k/uL RBC 3.75 L (3.80-5.40) m/uL Hgb 11.0 L (11.4-16.0) gm/dL Hct 34.6 (34.0-46.0) % MCV 92.3 (80.0-100.0) fL MCH 29.3 (25.0-35.0) pg MCHC 31.8 (31.0-37.0) g/dL RDW 14.4 (11.5-15.5) % Plt Count 172 (150-450) k/uL MPV 9.4 Neutrophils % 90 % Lymphocytes % 4 % Monocytes % 5 % Eosinophils % 0 % Basophils % 0 % Neutrophils # 12.2 H (1.3-7.7) k/uL Lymphocytes # 0.5 L (1.0-4.8) k/uL Monocytes # 0.6 (0-1.0) k/uL Eosinophils # 0.0 (0-0.7) k/uL Basophils # 0.0 (0-0.2) k/uL Hypochromasia Moderate PT 11.6 (9.0-12.0) sec INR 1.1 (<1.2) APTT 25.1 (22.0-30.0) sec Sodium (137-145) mmol/L Potassium (3.5-5.1) mmol/L Chloride (98-107) mmol/L Carbon Dioxide (22-30) mmol/L Anion Gap mmol/L BUN (7-17) mg/dL Creatinine (0.52-1.04) mg/dL Est GFR (CKD-EPI)AfAm (>60 ml/min/1.73 sqM) Est GFR (CKD-EPI)NonAf (>60 ml/min/1.73 sqM) Glucose (74-99) mg/dL Plasma Lactic Acid Dominic (0.7-2.0) mmol/L Calcium (8.4-10.2) mg/dL Magnesium (1.6-2.3) mg/dL Total Bilirubin (0.2-1.3) mg/dL AST (14-36) U/L ALT (4-34) U/L Alkaline Phosphatase (38-126) U/L Troponin I (0.000-0.034) ng/mL Total Protein (6.3-8.2) g/dL Albumin (3.5-5.0) g/dL Urine Color Yellow Urine Appearance Cloudy H (Clear) Urine pH 5.5 (5.0-8.0) Ur Specific [place] 1.016 (1.001-1.035) Urine Protein 2+ H (Negative) Urine Glucose (UA) 4+ H (Negative) Urine Ketones 1+ H (Negative) Urine Blood Small H (Negative) Urine Nitrite Negative (Negative) Urine Bilirubin Negative (Negative) Urine Urobilinogen <2.0 (<2.0) mg/dL Ur Leukocyte Esterase Small H (Negative) Urine RBC 1 (0-5) /hpf Urine WBC 20 H (0-5) /hpf Ur Squamous Epith Cells 1 (0-4) /hpf Urine Bacteria Many H (None) /hpf Urine Mucus Rare H (None) /hpf Influenza Type A (PCR) (Not Detectd) Influenza Type B (PCR) (Not Detectd) RSV (PCR) (Not Detectd) SARS-CoV-2 (PCR) (Not Detectd) 04/26/23 04/26/23 04/26/23 Range/Units 11:26 11:26 11:26 WBC (3.8-10.6) k/uL RBC (3.80-5.40) m/uL Hgb (11.4-16.0) gm/dL Hct (34.0-46.0) % MCV (80.0-100.0) fL MCH (25.0-35.0) pg MCHC (31.0-37.0) g/dL RDW (11.5-15.5) % Plt Count (150-450) k/uL MPV Neutrophils % % Lymphocytes % % Monocytes % % Eosinophils % % Basophils % % Neutrophils # (1.3-7.7) k/uL Lymphocytes # (1.0-4.8) k/uL Monocytes # (0-1.0) k/uL Eosinophils # (0-0.7) k/uL Basophils # (0-0.2) k/uL Hypochromasia PT (9.0-12.0) sec INR (<1.2) APTT (22.0-30.0) sec Sodium 133 L (137-145) mmol/L Potassium 4.6 (3.5-5.1) mmol/L Chloride 97 L (98-107) mmol/L Carbon Dioxide 24 (22-30) mmol/L Anion Gap 12 mmol/L BUN 19 H (7-17) mg/dL Creatinine 1.22 H (0.52-1.04) mg/dL Est GFR (CKD-EPI)AfAm 51 (>60 ml/min/1.73 sqM) Est GFR (CKD-EPI)NonAf 44 (>60 ml/min/1.73 sqM) Glucose 346 H (74-99) mg/dL Plasma Lactic Acid Dominic 2.0 (0.7-2.0) mmol/L Calcium 8.9 (8.4-10.2) mg/dL Magnesium 1.8 (1.6-2.3) mg/dL Total Bilirubin 1.7 H (0.2-1.3) mg/dL AST 38 H (14-36) U/L ALT 26 (4-34) U/L Alkaline Phosphatase 174 H (38-126) U/L Troponin I 0.027 (0.000-0.034) ng/mL Total Protein 6.9 (6.3-8.2) g/dL Albumin 3.9 (3.5-5.0) g/dL Urine Color Urine Appearance (Clear) Urine pH (5.0-8.0) Ur Specific [place] (1.001-1.035) Urine Protein (Negative) Urine Glucose (UA) (Negative) Urine Ketones (Negative) Urine Blood (Negative) Urine Nitrite (Negative) Urine Bilirubin (Negative) Urine Urobilinogen (<2.0) mg/dL Ur Leukocyte Esterase (Negative) Urine RBC (0-5) /hpf Urine WBC (0-5) /hpf Ur Squamous Epith Cells (0-4) /hpf Urine Bacteria (None) /hpf Urine Mucus (None) /hpf Influenza Type A (PCR) (Not Detectd) Influenza Type B (PCR) (Not Detectd) RSV (PCR) (Not Detectd) SARS-CoV-2 (PCR) (Not Detectd) 04/26/23 Range/Units 11:26 WBC (3.8-10.6) k/uL RBC (3.80-5.40) m/uL Hgb (11.4-16.0) gm/dL Hct (34.0-46.0) % MCV (80.0-100.0) fL MCH (25.0-35.0) pg MCHC (31.0-37.0) g/dL RDW (11.5-15.5) % Plt Count (150-450) k/uL MPV Neutrophils % % Lymphocytes % % Monocytes % % Eosinophils % % Basophils % % Neutrophils # (1.3-7.7) k/uL Lymphocytes # (1.0-4.8) k/uL Monocytes # (0-1.0) k/uL Eosinophils # (0-0.7) k/uL Basophils # (0-0.2) k/uL Hypochromasia PT (9.0-12.0) sec INR (<1.2) APTT (22.0-30.0) sec Sodium (137-145) mmol/L Potassium (3.5-5.1) mmol/L Chloride (98-107) mmol/L Carbon Dioxide (22-30) mmol/L Anion Gap mmol/L BUN (7-17) mg/dL Creatinine (0.52-1.04) mg/dL Est GFR (CKD-EPI)AfAm (>60 ml/min/1.73 sqM) Est GFR (CKD-EPI)NonAf (>60 ml/min/1.73 sqM) Glucose (74-99) mg/dL Plasma Lactic Acid Dominic (0.7-2.0) mmol/L Calcium (8.4-10.2) mg/dL Magnesium (1.6-2.3) mg/dL Total Bilirubin (0.2-1.3) mg/dL AST (14-36) U/L ALT (4-34) U/L Alkaline Phosphatase (38-126) U/L Troponin I (0.000-0.034) ng/mL Total Protein (6.3-8.2) g/dL Albumin (3.5-5.0) g/dL Urine Color Urine Appearance (Clear) Urine pH (5.0-8.0) Ur Specific [place] (1.001-1.035) Urine Protein (Negative) Urine Glucose (UA) (Negative) Urine Ketones (Negative) Urine Blood (Negative) Urine Nitrite (Negative) Urine Bilirubin (Negative) Urine Urobilinogen (<2.0) mg/dL Ur Leukocyte Esterase (Negative) Urine RBC (0-5) /hpf Urine WBC (0-5) /hpf Ur Squamous Epith Cells (0-4) /hpf Urine Bacteria (None) /hpf Urine Mucus (None) /hpf Influenza Type A (PCR) Not Detected (Not Detectd) Influenza Type B (PCR) Not Detected (Not Detectd) RSV (PCR) Not Detected (Not Detectd) SARS-CoV-2 (PCR) Not Detected (Not Detectd) Disposition Clinical Impression: Dehydration, Atrial fibrillation with RVR, Metastatic cancer Disposition: ADMITTED IP TO THIS HOSP Condition: Stable Is patient prescribed a controlled substance at d/c from ED?: No Referrals: Kay Martinez MD [Primary Care Provider] - 1-2 days Time of Disposition: 14:17
[2023-04-26 11:46] LABS: Basophils % (A) 0 %; Eosinophils % (A) 0 %; HCT 34.6 % (34.0-46.0); Hypochromasia Moderate; Lymphocytes # (A) 0.5 k/uL (1.0-4.8); Lymphocytes % (A) 4 %; MCH 29.3 pg (25.0-35.0); MCHC 31.8 g/dL (31.0-37.0); MCV 92.3 fL (80.0-100.0); Mean Platelet Volume 9.4; Monocytes # (A) 0.6 k/uL (0-1.0); Monocytes % (A) 5 %; Neutrophils # (A) 12.2 k/uL (1.3-7.7); Neutrophils % (A) 90 %; Platelet Count 172 k/uL (150-450); RBC 3.75 m/uL (3.80-5.40); RDW 14.4 % (11.5-15.5); WBC 13.5 k/uL (3.8-10.6)
[2023-04-26 12:00] LABS: Albumin 3.9 g/dL (3.5-5.0); Calcium 8.9 mg/dL (8.4-10.2); Magnesium 1.8 mg/dL (1.6-2.3); Potassium 4.6 mmol/L (3.5-5.1); Total Bilirubin 1.7 mg/dL (0.2-1.3); Total Protein 6.9 g/dL (6.3-8.2)
[2023-04-26 12:06] LABS: INR 1.1 (<1.2); Partial Thromboplastin Time 25.1 sec (22.0-30.0); Prothrombin Time 11.6 sec (9.0-12.0)
[2023-04-26] MEDS: DILTIAZEM 125 MG in SODIUM CHLORIDE 0.9% 100 ML IV SCH (12:15)
--- NOTE | 2023-04-26 12:17 | XR ---
EXAMINATION TYPE: XR chest 2V DATE OF EXAM: 04/26/2023 COMPARISON: 08/17/2021 HISTORY: 73-year-old female with weakness and fall TECHNIQUE: AP and lateral views FINDINGS: Right anterior chest wall injection port with catheter tip at the lower SVC. Loop recorder device pro jects at the left mid chest. Heart normal size. Aorta and pulmonary vasculature within normal limits. No consolidation or pleural effusion. DISH in the mid and lower thoracic spine. IMPRESSION: No acute cardiopulmonary process.
[2023-04-26] MEDS: SODIUM CHLORIDE 0.9% 1,000 ML IV SCH ×2 (13:48→22:26)
[2023-04-26 14:07] LABS: Appearance,Urine Cloudy (Clear); Bacteria,Urine Many /hpf; Bilirubin,Urine Negative (Negative); Blood,Urine Small (Negative); Color,Urine Yellow; Glucose,Urine (UA) 4+ (Negative); Ketones,Urine 1+ (Negative); Leukocyte Esterase,Urine Small (Negative); Mucus,Urine Rare /hpf; Nitrite,Urine Negative (Negative); PH, Urine 5.5 (5.0-8.0); Protein,Urine 2+ (Negative); RBC,Urine 1 /hpf (0-5); Specific Gravity,Urine 1.016 (1.001-1.035); Squamous Epithelial Cell,Urine 1 /hpf (0-4); Urobilinogen,Urine <2.0 mg/dL (<2.0); WBC,Urine 20 /hpf (0-5)
[2023-04-26] MEDS ORDERED: NALOXONE 0.4 MG/ML 1 ML VIAL IV PRN (14:10)
[2023-04-26] MEDS ORDERED: SODIUM CHLORIDE 0.9% 1,000 ML IV SCH (14:15)
[2023-04-26] MEDS ORDERED: hydrOXYzine HCL 10 MG TAB PO PRN (14:47)
[2023-04-26] MEDS ORDERED: ONDANSETRON ODT 4 MG TAB PO PRN (14:47)
[2023-04-26] MEDS ORDERED: SENNOSIDES-DOCUSATE SODIUM 1 EACH TAB PO PRN (14:47)
[2023-04-26] MEDS ORDERED: DEXTROSE 50% SYRINGE 50 ML IVP PRN ×4 (14:50→18:52)
[2023-04-26 16:37] LABS: Glucose,Whole Blood 347 mg/dL (70-110)
[2023-04-26] MEDS: HEPARIN SODIUM,PORCINE/PF 5,000 UNIT/0.5 ML SYRINGE SQ SCH (16:43)
[2023-04-26] MEDS ORDERED: INSULIN ASPART (NovoLOG) 100 UNIT/ML VIAL SQ SCH (17:30)
[2023-04-26] MEDS: ACETAMINOPHEN TAB 325 MG TAB PO PRN (18:23)
--- NOTE | 2023-04-26 18:55 | P.HPIM ---
History of Present Illness This is a pleasant 73 years old female past medical history of carcinoma of the uterus for more than 5 years, she was in [place] getting chemotherapy treatment, she is status post hysterectomy in 2019, and lately she was found to have more progressive metastatic disease therefore chemotherapy was stopped and told she has few weeks to live so she came back to [place]. She has evidence of metastatic disease to the right lower quadrant abdominal cavity and she was suppose to get surgical resection of her tumor but it starts bleeding and found to flow progressive disease so surgical intervention was canceled. Once she came to [place] she fell doing better and follow-up with her doctor who prescribed her CAT scan of the chest showing more pulmonary metastatic disease. After that she started feeling more weak and lethargic, this morning she was currently able to get out of bed so she came to emergency room. She denies any chest pain or dyspnea or coughing. She denies dysuria or urgency, she denies abdominal pain vomiting or diarrhea, she has mild right lower quadrant abdominal pain but this mostly related to her metastatic disease to her colon As per patient Patient is nonsmoker, she denies alcohol or illicit drugs Patient is a known diabetic and she was using insulin pump but it was not working lately so she took it off Review of Systems Review of systems -CONSTITUTIONAL: No fever, positive for malaise, and she has fatigue. HEENT: No recent visual problems or hearing problems. Denied any sore throat. CARDIOVASCULAR: No orthopnea, PND, no palpitations, no syncope. PULMONARY: No shortness of breath, no cough, no hemoptysis. GASTROINTESTINAL: No diarrhea, no nausea, no vomiting, no abdominal pain. Normoactive bowel sounds. NEUROLOGICAL: No headaches, no weakness, no numbness. HEMATOLOGICAL: Denies any bleeding or petechiae. GENITOURINARY: Denies any burning micturition, frequency, or urgency. MUSCULOSKELETAL/RHEUMATOLOGICAL: Denies any joint pain, swelling, or any muscle pain. ENDOCRINE: Denies any polyuria or polydipsia. Past Medical History Past Medical History: Diabetes Mellitus, Hyperlipidemia, Hypertension, Pneumonia Additional Past Medical History / Comment(s): migraines,bronchitis, "chest xray showed inflammation in my lung", HX BREAST CANCER AMD LT LYMPHADENOPATHY. POST MENOPAUSAL BLEEDING History of Any Multi-Drug Resistant Organisms: None Reported Past Surgical History: Breast Surgery, Section, Tonsillectomy Additional Past Surgical History / Comment(s): amadou mastectomy- left lymphadenectomy, cataracts, Past Anesthesia/Blood Transfusion Reactions: Motion Sickness, Postoperative Nausea & Vomiting (PONV) Past Psychological History: No Psychological Hx Reported Past Alcohol Use History: None Reported Past Drug Use History: None Reported - Past Family History Mother Family Medical History: Cancer Sister(s) Family Medical History: Cancer Medications and Allergies Home Medications Medication Instructions Recorded Confirmed Type DULoxetine HCL [Cymbalta] 40 mg PO DAILY 04/26/23 04/26/23 History Ferrous Sulfate [Feosol] 325 mg PO DAILY 04/26/23 04/26/23 History LORazepam [Ativan] 1 mg PO TID PRN 04/26/23 04/26/23 History Metoprolol Succinate (ER) [Toprol 25 mg PO BID 04/26/23 04/26/23 History Xl] Naloxegol Oxalate [Movantik] 25 mg PO DAILY PRN 04/26/23 04/26/23 History Omeprazole 20 mg PO DAILY 04/26/23 04/26/23 History Ondansetron Odt [Zofran Odt] 4 mg PO Q8HR PRN 04/26/23 04/26/23 History Pregabalin [Lyrica] 75 mg PO BID 04/26/23 04/26/23 History Sennosides/Docusate Sodium [Senna 2 tab PO BID PRN 04/26/23 04/26/23 History Plus 8.6-50 mg Tablet] hydrOXYzine HCL [Atarax] 10 - 20 mg PO HS PRN 04/26/23 04/26/23 History metFORMIN HCL ER [Glucophage XR] 500 mg PO PC-BID 04/26/23 04/26/23 History oxyCODONE HCL [Roxicodone] 5 mg PO Q6HR PRN 04/26/23 04/26/23 History Allergies Allergy/AdvReac Type Severity Reaction Status Date / Time Penicillins Allergy Rash/Hives Verified 04/26/23 13:24 Physical Exam Vitals: Vital Signs Temp Pulse Resp BP Pulse Ox 04/26/23 13:25 98 04/26/23 11:06 100.1 F H 118 H 18 93/75 94 L Intake and Output 05/30/23 05/31/23 05/31/23 22:59 06:59 14:59 Other: Weight 97.522 kg -GENERAL: The patient is alert and oriented x3, not in any acute distress. Morbidly obese. Generally weak HEENT: Pupils are round and equally reacting to light. EOMI. No scleral icterus. No conjunctival pallor. Normocephalic, atraumatic. No pharyngeal erythema. No thyromegaly. CARDIOVASCULAR: S1 and S2 present. No murmurs, rubs, or gallops. PULMONARY: Chest is clear to auscultation, no wheezing . no crackles. ABDOMEN: Soft, nontender, nondistended, normoactive bowel sounds. No palpable organomegaly. MUSCULOSKELETAL: No joint swelling or deformity. EXTREMITIES: No cyanosis, clubbing, or pedal edema. NEUROLOGICAL: Gross neurological examination did not reveal any focal deficits. SKIN: No rashes. no petechiae. Results CBC & Chem 7: 04/26/23 11:26 04/26/23 11:26 Labs: Abnormal Lab Results - Last 24 Hours (Table) 04/26/23 04/26/23 04/26/23 Range/Units 11:26 11:26 11:26 WBC 13.5 H (3.8-10.6) k/uL RBC 3.75 L (3.80-5.40) m/uL Hgb 11.0 L (11.4-16.0) gm/dL Neutrophils # 12.2 H (1.3-7.7) k/uL Lymphocytes # 0.5 L (1.0-4.8) k/uL Sodium 133 L (137-145) mmol/L Chloride 97 L (98-107) mmol/L BUN 19 H (7-17) mg/dL Creatinine 1.22 H (0.52-1.04) mg/dL Glucose 346 H (74-99) mg/dL Total Bilirubin 1.7 H (0.2-1.3) mg/dL AST 38 H (14-36) U/L Alkaline Phosphatase 174 H (38-126) U/L Urine Appearance Cloudy H (Clear) Urine Protein 2+ H (Negative) Urine Glucose (UA) 4+ H (Negative) Urine Ketones 1+ H (Negative) Urine Blood Small H (Negative) Ur Leukocyte Esterase Small H (Negative) Urine WBC 20 H (0-5) /hpf Urine Bacteria Many H (None) /hpf Urine Mucus Rare H (None) /hpf Assessment and Plan Assessment: Atrial fibrillation with RVR, new onset Febrile illness,, no clear source of infection, could be related to UTI or bowel infection. Metastatic uterine cancer, status post hysterectomy, status post chemotherapy. it looks end-stage with metastasis to the intra-abdominal cavity and probably Lung (as per patient) Mild acute kidney injury Diabetes mellitus with hyperglycemia, present on admission Mild sepsis with leukocytosis and fever but patient is immunocompromised borderline hypotension , could be related to sepsis Obesity Plan: Continue with Cardizem drip Cardiology consult Continue with intravenous hydration We'll start empirically on antibiotic and sent and culture. We will start on ceftriaxone for possible UTI versus Check procalcitonin Continue with parenteral hydration Hematology/oncology consult called insulin drip by patient, place patient on insulin sliding scale Labs and medication were reviewed.. Continue same treatment. Continue with symptomatic treatment. Resume home medication. Monitor labs and vitals. DVT and GI prophylaxis. Further recommendations as per clinical course of the patient DVT prophylaxis: Subcutaneous heparin GI Prophylaxis: Pepcid PT/OT: Pending Prognosis is guarded
[2023-04-26] MEDS ORDERED: LEVOFLOXACIN 500MG-D5W PMX 500 MG in DEXTROSE/WATER 1 100ML.BAG IVPB SCH (19:00)
[2023-04-26 20:09] LABS: Glucose,Whole Blood 386 mg/dL (70-110)
[2023-04-26] MEDS: INSULIN ASPART (NovoLOG) 100 UNIT/ML VIAL SQ SCH (20:25)
[2023-04-26] MEDS: PREGABALIN 75 MG CAP PO SCH (20:25)
[2023-04-26] MEDS: FAMOTIDINE 20 MG/2 ML VIAL IV SCH (20:25)
[2023-04-26] MEDS ORDERED: METOPROLOL SUCCINATE (ER) 25 MG TAB.ER.24H PO SCH (21:00)
[2023-04-26] MEDS ORDERED: METOPROLOL SUCCINATE (ER) 50 MG TAB.ER.24H PO SCH (21:00)
[2023-04-26] MEDS ORDERED: LORazepam 0.5 MG TAB PO SCH (21:45)
[2023-04-27] MEDS: HEPARIN SODIUM,PORCINE/PF 5,000 UNIT/0.5 ML SYRINGE SQ SCH ×4 (00:19→23:34)
[2023-04-27] MEDS: ACETAMINOPHEN TAB 325 MG TAB PO PRN ×3 (01:15→15:24)
[2023-04-27 06:01] LABS: Glucose,Whole Blood 381 mg/dL (70-110)
[2023-04-27] MEDS: SODIUM CHLORIDE 0.9% 1,000 ML IV SCH ×2 (06:44→16:05)
[2023-04-27] MEDS: DILTIAZEM 125 MG in SODIUM CHLORIDE 0.9% 100 ML IV SCH (06:47)
[2023-04-27] MEDS: INSULIN ASPART (NovoLOG) 100 UNIT/ML VIAL SQ SCH ×4 (06:48→20:05)
[2023-04-27] MEDS: METOPROLOL SUCCINATE (ER) 50 MG TAB.ER.24H PO SCH ×2 (08:37→20:05)
[2023-04-27] MEDS: FERROUS SULFATE 325 MG TAB PO SCH (08:37)
[2023-04-27] MEDS: PREGABALIN 75 MG CAP PO SCH ×2 (08:37→20:05)
[2023-04-27] MEDS: FAMOTIDINE 20 MG/2 ML VIAL IV SCH (08:37)
[2023-04-27] MEDS: DULoxetine HCL 20 MG CAPSULE.DR PO SCH (08:38)
[2023-04-27 09:31] LABS: Basophils % (A) 0 %; Eosinophils # (A) 0.1 k/uL (0-0.7); Eosinophils % (A) 1 %; HCT 31.3 % (34.0-46.0); HGB 9.7 gm/dL (11.4-16.0); Hypochromasia Marked; Lymphocytes # (A) 0.5 k/uL (1.0-4.8); Lymphocytes % (A) 4 %; MCH 29.3 pg (25.0-35.0); MCV 94.6 fL (80.0-100.0); Mean Platelet Volume 9.8; Monocytes # (A) 0.6 k/uL (0-1.0); Monocytes % (A) 5 %; Neutrophils # (A) 10.9 k/uL (1.3-7.7); Neutrophils % (A) 90 %; Platelet Count 141 k/uL (150-450); RBC 3.31 m/uL (3.80-5.40); RDW 14.2 % (11.5-15.5); WBC 12.1 k/uL (3.8-10.6)
[2023-04-27 09:43] LABS: African American GFR (CKD) 67 (>60 ml/min/1.73 sqM); Anion Gap 10 mmol/L; Blood Urea Nitrogen 22 mg/dL (7-17); Calcium 8.5 mg/dL (8.4-10.2); Carbon Dioxide 22 mmol/L (22-30); Chloride 100 mmol/L (98-107); Glucose 411 mg/dL (74-99); Non-African American GFR(CKD) 58 (>60 ml/min/1.73 sqM); Potassium 4.7 mmol/L (3.5-5.1); Sodium 132 mmol/L (137-145)
--- NOTE | 2023-04-27 10:31 | P.CRDCN ---
History of Present Illness Consult date: 04/27/23 History of present illness: HISTORY OF PRESENT ILLNESS: This is a 73-year-old female with a past medical history significant for breast cancer, uterine cancer with metastasis, atrial fibrillation, nonsustained ventricular tachycardia, hypertension, diabetes, and hyperlipidemia. Patient follows in the office with Dr. Motta but has not been seen in the office since November 2021 as she has been living out in [place]. We have been asked to see the patient in consultation for atrial fibrillation. Patient examined at the bedside. Patient presented to the hospital for chief complaint of generalized weakness. She also reports that she rolled out of bed the other day but did not sustain any injuries. She denies any chest pain or pressure. She denies any shortness of breath. She denies any palpitations. EKG on admission revealed atrophic relation with RVR. She was started on IV Cardizem. This morning telemetry reveals sinus mechanism with PACs. The patient was previously on Xarelto. However she states that she developed bleeding and anemia with a hemoglobin of 7 which they thought may be related to her metastatic disease and her anticoagulation was discontinued. The patient also reports she was having nonsustained ventricular tachycardia in October 2022 while in [place]. She states that she underwent a stress test which was negative to her knowledge. She denies having a cardiac catheterization. * EKG reveals atrial flutter ablation with RVR * Chest xray negative for acute process * Patient underwent CT abdomen and pelvis on 04/25/2023 revealing enlarging bilobed metastatic lesion anterior right pararenal space with probable invasion of the hepatic serosa. There is no mass effect upon the descending colon with serosal invasion difficult to exclude. New 6 mm pulmonary nodule at the left lung base. * Laboratory data: WBC 12.1. Hemoglobin 9.7. Platelet count 141. Sodium 132. Potassium 4.7. BUN 22. Creatinine 0.97. TSH 2.090. * Current home cardiac medications include metoprolol succinate 25 mg twice a day * Most recent echocardiogram obtained in July 2021 revealed ejection fraction 55%, mild LVH * Patient underwent [employer] loop recorder in March 2021 REVIEW OF SYSTEMS: At the time of my exam: CONSTITUTIONAL: Denies fever or chills. HEENT: Denies blurred vision, vision changes, or eye pain. Denies hemoptysis CARDIOVASCULAR: Denies chest pain. Denies orthopnea. Denies PND. Denies palpitations RESPIRATORY: Denies shortness of breath. GASTROINTESTINAL: Denies abdominal pain. Denies nausea or vomiting. HEMATOLOGIC: Denies bleeding disorders. GENITOURINARY: Denies any blood in urine. SKIN: Denies pruitis. Denies rash. PHYSICAL EXAM: VITAL SIGNS: Reviewed. GENERAL: Well-developed in no acute distress. HEENT: Head is normocephalic. Pupils are equal, round. Sclerae anicteric. Mucous membranes of the mouth are moist. Neck supple. No JVD or thyromegaly LUNGS: Respirations even and unlabored. Lungs essentially clear to auscultation bilaterally. HEART: Regular rate and rhythm. S1 and S2 heard. ABDOMEN: Soft. Nondistended. Nontender. EXTREMITIES: Normal range of motion. No clubbing or cyanosis. Peripheral pulses intact. No lower extremity edema NEUROLOGIC: Awake and alert. Oriented x 3. ASSESSMENT: Generalized weakness S/P fall from bed with no apparent injuries Fever Atrial fibrillation with RVR, unknown if paroxysmal or persistent History of uterine cancer with metastasis to intra-abdominal cavity and suspected lung with pulmonary nodules noted on recent CT Recent history of bleeding and anemia, thought to be secondary to above History of breast cancer History of nonsustained ventricular tachycardia History of loop recorder implantation Hypertension Hyperlipidemia Diabetes PLAN: Obtain 2-D echo to assess cardiac structure and function Discontinue IV Cardizem Increase metoprolol to 50 mg twice a day Check TSH Continue telemetry monitoring No anticoagulation secondary to patient's history of anemia/bleeding Further recommendations pending patient course Nurse practitioner note has been reviewed by physician. Signing provider agrees with the documented findings, assessment, and plan of care. Past Medical History Past Medical History: Diabetes Mellitus, Hyperlipidemia, Hypertension, Pneumonia Additional Past Medical History / Comment(s): migraines,bronchitis, "chest xray showed inflammation in my lung", HX BREAST CANCER AMD LT LYMPHADENOPATHY. POST MENOPAUSAL BLEEDING History of Any Multi-Drug Resistant Organisms: None Reported Past Surgical History: Breast Surgery, Section, Tonsillectomy Additional Past Surgical History / Comment(s): amadou mastectomy- left lymphadenectomy, cataracts, Past Anesthesia/Blood Transfusion Reactions: Motion Sickness, Postoperative Nausea & Vomiting (PONV) Past Psychological History: No Psychological Hx Reported Past Alcohol Use History: None Reported Past Drug Use History: None Reported - Past Family History Mother Family Medical History: Cancer Additional Family Medical History / Comment(s): breast Sister(s) Family Medical History: Cancer Additional Family Medical History / Comment(s): breast Medications and Allergies Home Medications Medication Instructions Recorded Confirmed Type DULoxetine HCL [Cymbalta] 40 mg PO DAILY 04/26/23 04/26/23 History Ferrous Sulfate [Feosol] 325 mg PO DAILY 04/26/23 04/26/23 History LORazepam [Ativan] 1 mg PO TID PRN 04/26/23 04/26/23 History Metoprolol Succinate (ER) [Toprol 25 mg PO BID 04/26/23 04/26/23 History Xl] Naloxegol Oxalate [Movantik] 25 mg PO DAILY PRN 04/26/23 04/26/23 History Omeprazole 20 mg PO DAILY 04/26/23 04/26/23 History Ondansetron Odt [Zofran Odt] 4 mg PO Q8HR PRN 04/26/23 04/26/23 History Pregabalin [Lyrica] 75 mg PO BID 04/26/23 04/26/23 History Sennosides/Docusate Sodium [Senna 2 tab PO BID PRN 04/26/23 04/26/23 History Plus 8.6-50 mg Tablet] hydrOXYzine HCL [Atarax] 10 - 20 mg PO HS PRN 04/26/23 04/26/23 History metFORMIN HCL ER [Glucophage XR] 500 mg PO PC-BID 04/26/23 04/26/23 History oxyCODONE HCL [Roxicodone] 5 mg PO Q6HR PRN 04/26/23 04/26/23 History Allergies Allergy/AdvReac Type Severity Reaction Status Date / Time Penicillins Allergy Rash/Hives Verified 04/26/23 13:24 Physical Exam Vitals: Vital Signs Temp Pulse Pulse Resp BP BP Pulse Ox 04/27/23 08:40 101.3 F H 92 17 90/50 94 L 04/27/23 04:00 98.8 F 96 18 138/65 98 04/27/23 02:00 96 04/27/23 00:00 100.3 F H 96 18 134/62 98 04/26/23 20:00 98.2 F 98 18 129/58 97 04/26/23 18:05 102 H 18 04/26/23 18:00 98.6 F 102 H 18 162/65 97 04/26/23 13:25 98 04/26/23 11:06 100.1 F H 118 H 18 93/75 94 L Intake and Output 04/26/23 04/27/23 04/27/23 22:59 06:59 14:59 Intake Total 92.667 240 Output Total 300 Balance -207.333 240 Intake: Intake, IV Titration 92.667 Amount Diltiazem 125 mg In 92.667 Sodium Chloride 0.9% 100 ml @ 5 MG/HR 5 mls/hr IV .Q24H [facility] Rx#:[id number] Oral 240 Output: Urine 300 Other: Voiding Method External Catheter External Catheter External Catheter # Voids 1 1 # Bowel Movements 1 Weight 97.522 kg Results 04/27/23 09:09 04/27/23 09:09 Cardiac Enzymes 04/26/23 04/26/23 Range/Units 11:26 11:26 AST 38 H (14-36) U/L Troponin I 0.027 (0.000-0.034) ng/mL Coagulation 04/26/23 Range/Units 11:26 PT 11.6 (9.0-12.0) sec APTT 25.1 (22.0-30.0) sec CBC 04/26/23 04/27/23 Range/Units 11:26 09:09 WBC 13.5 H 12.1 H (3.8-10.6) k/uL RBC 3.75 L 3.31 L (3.80-5.40) m/uL Hgb 11.0 L 9.7 L (11.4-16.0) gm/dL Hct 34.6 31.3 L (34.0-46.0) % Plt Count 172 141 L (150-450) k/uL Comprehensive Metabolic Panel 04/26/23 04/27/23 Range/Units 11:26 09:09 Sodium 133 L 132 L (137-145) mmol/L Potassium 4.6 4.7 (3.5-5.1) mmol/L Chloride 97 L 100 (98-107) mmol/L Carbon Dioxide 24 22 (22-30) mmol/L BUN 19 H 22 H (7-17) mg/dL Creatinine 1.22 H 0.97 (0.52-1.04) mg/dL Glucose 346 H 411 H (74-99) mg/dL Calcium 8.9 8.5 (8.4-10.2) mg/dL AST 38 H (14-36) U/L ALT 26 (4-34) U/L Alkaline Phosphatase 174 H (38-126) U/L Total Protein 6.9 (6.3-8.2) g/dL Albumin 3.9 (3.5-5.0) g/dL Current Medications Generic Name Dose Route Start Last Admin Trade Name Freq PRN Reason Stop Dose Admin Acetaminophen 650 mg 04/26/23 14:10 04/27/23 08:40 Acetaminophen Tab 325 Mg Tab PO 650 mg Q6HR PRN Administration Mild Pain or Fever > 100.5 Dextrose/Water 25 ml 04/26/23 14:50 Dextrose 50% Syringe 50 Ml IVP PER PROTOCOL PRN Hypoglycemia Protocol Dextrose/Water 50 ml 04/26/23 14:50 Dextrose 50% Syringe 50 Ml IVP PER PROTOCOL PRN Hypoglycemia Protocol Dextrose/Water 25 ml 04/26/23 18:52 Dextrose 50% Syringe 50 Ml IVP PER PROTOCOL PRN Hypoglycemia Protocol Dextrose/Water 50 ml 04/26/23 18:52 Dextrose 50% Syringe 50 Ml IVP PER PROTOCOL PRN Hypoglycemia Protocol Duloxetine HCl 40 mg 04/27/23 09:00 04/27/23 08:38 Duloxetine Hcl 20 Mg Capsule.Dr PO 40 mg DAILY JOJO Administration Famotidine 20 mg 04/26/23 21:00 04/27/23 08:37 Famotidine 20 Mg/2 Ml Vial IV 20 mg Q12HR JOJO Administration Ferrous Sulfate 325 mg 04/27/23 09:00 04/27/23 08:37 Ferrous Sulfate 325 Mg Tab PO 325 mg DAILY JOJO Administration Heparin Sodium (Porcine) 5,000 unit 04/26/23 16:00 04/27/23 08:38 Heparin Sodium,Porcine/Pf 5,000 Unit/0.5 Ml Syringe SQ 5,000 unit Q8HR JOJO Administration Hydroxyzine HCl 10 mg 04/26/23 14:47 Hydroxyzine Hcl 10 Mg Tab PO HS PRN Anxiety Sodium Chloride 1,000 mls @ 100 mls/hr 04/26/23 13:30 04/27/23 06:44 Saline 0.9% IV Not Given .Q10H JOJO Levofloxacin/Dextrose 250 mg/ 50 mls @ 50 mls/hr 04/27/23 19:00 IV Solution IVPB Q24H [facility] Insulin Aspart 0 unit 04/26/23 21:00 04/27/23 06:48 Insulin Aspart (Novolog) 100 Unit/Ml Vial SQ 5 unit ACHS JOJO Administration Protocol Lorazepam 0.25 mg 04/26/23 21:45 04/26/23 22:11 Lorazepam 0.5 Mg Tab PO 0.25 mg HS JOJO Administration Metoprolol Succinate 50 mg 04/27/23 09:00 04/27/23 08:37 Metoprolol Succinate (Er) 50 Mg Tab.Er.24h PO 50 mg BID JOJO Administration Naloxone HCl 0.2 mg 04/26/23 14:10 Naloxone 0.4 Mg/Ml 1 Ml Vial IV Q2M PRN Opioid Reversal Oxycodone HCl 5 mg 04/26/23 14:47 Oxycodone Hcl 5 Mg Tab PO Q6HR PRN Pain Pregabalin 75 mg 04/26/23 21:00 04/27/23 08:37 Pregabalin 75 Mg Cap PO 75 mg BID JOJO Administration Senna/Docusate Sodium 2 each 04/26/23 14:47 Sennosides-Docusate Sodium 1 Each Tab PO BID PRN Constipation Intake and Output 04/26/23 04/27/23 04/27/23 22:59 06:59 14:59 Intake Total 92.667 240 Output Total 300 Balance -207.333 240 Intake: Intake, IV Titration 92.667 Amount Diltiazem 125 mg In 92.667 Sodium Chloride 0.9% 100 ml @ 5 MG/HR 5 mls/hr IV .Q24H [facility] Rx#:[id number] Oral 240 Output: Urine 300 Other: Voiding Method External Catheter External Catheter External Catheter # Voids 1 1 # Bowel Movements 1 Weight 97.522 kg 04/27/23 09:09 04/27/23 09:09
--- NOTE | 2023-04-27 11:18 | CA ---
Transthoracic Echo Report Name: Amairani Weston Age: 73 Gender: F : 1950 Exam Date: 04/27/2023 10:00 Exam Location: Mobile Echo Ht (in): 63 Wt (lb): 215 Ordering Physician: Abby Farrell Attending/Referring Phys: [id number], Jami Fur Examiner Nata Thacker RDCS Procedure CPT: Indications: LV function Cardiac Hx: Technical Quality: Fair Contrast 1: Total Dose (mL): Contrast 2: Total Dose (mL): MEASUREMENTS (Male / Female) Normal Values 2D ECHO LV Diastolic Diameter PLAX 4.3 cm 4.2 - 5.9 / 3.9 - 5.3 cm LV Systolic Diameter PLAX 2.5 cm IVS Diastolic Thickness 1.2 cm 0.6 - 1.0 / 0.6 - 0.9 cm LVPW Diastolic Thickness 1.2 cm 0.6 - 1.0 / 0.6 - 0.9 cm LV Relative Wall Thickness 0.6 RV Internal Dim ED PLAX 4.5 cm LA Volume 62.7 cm??? 18 - 58 / 22 - 52 cm??? M-MODE Aortic Root Diameter MM 2.5 cm LA Systolic Diameter MM 5.1 cm LA Ao Ratio MM 2.0 DOPPLER AV Peak Velocity 180.5 cm/s AV Peak Gradient 13.0 mmHg AV Mean Velocity 147.8 cm/s AV Mean Gradient 9.8 mmHg AV Velocity Time Integral 45.0 cm LVOT Peak Velocity 139.5 cm/s LVOT Peak Gradient 7.8 mmHg MV Area PHT 4.0 cm??? Mitral E Point Velocity 84.5 cm/s Mitral A Point Velocity 96.1 cm/s Mitral E to A Ratio 0.9 MV Deceleration Time 189.1 ms MV E' Velocity 5.3 cm/s Mitral E to MV E' Ratio 15.9 FINDINGS Left Ventricle Mildly increased left ventricular wall thickness. Left ventricular cavity size normal. Normal left ventricular systolic function with no obvious regional wall motion abnormalities. Left ventricular ejection fraction is estimated at 50-55 %. Right Ventricle Moderate right ventricular dilatation. Right ventricular systolic pressure within normal limits. Right Atrium Normal right atrial size. Left Atrium Mildly increased left atrial volume. Mitral Valve Structurally normal mitral valve. Mild mitral annular calcification. Mild mitral regurgitation. Aortic Valve Trileaflet aortic valve. Mild aortic stenosis with a peak gradient of 13 mmHg and a mean gradient of 10 mmHg. Tricuspid Valve Structurally normal tricuspid valve. Mild tricuspid regurgitation. Pulmonic Valve Trace pulmonic regurgitation. Pericardium No pericardial effusion. Aorta Normal size aortic root and proximal ascending aorta. CONCLUSIONS Normal LV systolic function Mild mitral regurgitation Mild aortic stenosis Previewed by: Dr. Ash Anaya MD (Electronically Signed) Final Date: 27 April 2023 11:17
[2023-04-27 11:35] LABS: Glucose,Whole Blood 398 mg/dL (70-110)
--- NOTE | 2023-04-27 12:21 | P.PN ---
Subjective This is a pleasant 73 years old female past medical history of carcinoma of the uterus for more than 5 years, she was in [place] getting chemotherapy treatment, she is status post hysterectomy in 2019, and lately she was found to have more progressive metastatic disease therefore chemotherapy was stopped and told she has few weeks to live so she came back to [place]. She has evidence of metastatic disease to the right lower quadrant abdominal cavity and she was suppose to get surgical resection of her tumor but it starts bleeding and found to flow progressive disease so surgical intervention was canceled. Once she came to [place] she fell doing better and follow-up with her doctor who prescribed her CAT scan of the chest showing more pulmonary metastatic disease. After that she started feeling more weak and lethargic, this morning she was currently able to get out of bed so she came to emergency room. She denies any chest pain or dyspnea or coughing. She denies dysuria or urgency, she denies abdominal pain vomiting or diarrhea, she has mild right lower quadrant abdominal pain but this mostly related to her metastatic disease to her colon As per patient Patient is nonsmoker, she denies alcohol or illicit drugs Patient is a known diabetic and she was using insulin pump but it was not working lately so she took it off 04/27/2023 Patient awake alert, she feels little better today She denies urinary or respiratory symptoms. She is complaining of from nausea and generalized weakness. Also she has some tenderness in the right lower quadrant, right upper quadrant and epigastric area. It is mild with no guarding, no diarrhea. She is hemodynamically stable but she still running fever 101.3 today. Vitals and labs reviewed, glucose elevated. We will add Levemir 10 units today. Remains on normal saline 100 mL, Levaquin 500 mg, Cardizem drip was stopped and metoprolol dose increased to 50 mg. No need for anticoagulation per cardiology's were atrial fibrillation because of risk of GI bleed given her history of the same Objective - Vital Signs Vital signs: Vital Signs Temp 99.8 F H 04/27/23 10:50 Pulse 77 04/27/23 10:50 Resp 18 04/27/23 10:50 BP 104/49 04/27/23 10:50 Pulse Ox 96 04/27/23 10:50 FiO2 Intake & Output 04/26/23 04/27/23 04/27/23 18:59 06:59 18:59 Intake Total 92.667 240 Output Total 300 300 Balance -207.333 -60 Weight 97.522 kg Intake: Intake, IV Titration 92.667 Amount Diltiazem 125 mg In 92.667 Sodium Chloride 0.9% 100 ml @ 5 MG/HR 5 mls/hr IV .Q24H [facility] Rx#:[id number] Oral 240 Output: Urine 300 300 Other: Voiding Method External Catheter External Catheter # Voids 1 # Bowel Movements 1 - Exam GENERAL: The patient is alert and oriented x3, not in any acute distress. Obese HEENT: Pupils are round and equally reacting to light. EOMI. No scleral icterus. No conjunctival pallor. Normocephalic, atraumatic. No pharyngeal erythema. No thyromegaly. CARDIOVASCULAR: S1 and S2 present. No murmurs, rubs, or gallops. PULMONARY: Chest is clear to auscultation, no wheezing or crackles. -ABDOMEN: Soft, right-sided tenderness, no rebound tenderness, no guarding, nondistended, normoactive bowel sounds. No palpable organomegaly. MUSCULOSKELETAL: No joint swelling or deformity. EXTREMITIES: No cyanosis, clubbing, or pedal edema. NEUROLOGICAL: Gross neurological examination did not reveal any focal deficits. SKIN: No rashes. no petechiae. - Labs CBC & Chem 7: 04/27/23 09:09 04/27/23 09:09 Labs: Abnormal Lab Results - Last 24 Hours (Table) 04/26/23 04/26/23 04/26/23 Range/Units 11:26 11:26 16:34 WBC (3.8-10.6) k/uL RBC (3.80-5.40) m/uL Hgb (11.4-16.0) gm/dL Hct (34.0-46.0) % Plt Count (150-450) k/uL Neutrophils # (1.3-7.7) k/uL Lymphocytes # (1.0-4.8) k/uL Sodium (137-145) mmol/L BUN (7-17) mg/dL Glucose (74-99) mg/dL POC Glucose (mg/dL) 347 H (70-110) mg/dL Procalcitonin 1.18 H (0.02-0.09) ng/mL Urine Appearance Cloudy H (Clear) Urine Protein 2+ H (Negative) Urine Glucose (UA) 4+ H (Negative) Urine Ketones 1+ H (Negative) Urine Blood Small H (Negative) Ur Leukocyte Esterase Small H (Negative) Urine WBC 20 H (0-5) /hpf Urine Bacteria Many H (None) /hpf Urine Mucus Rare H (None) /hpf 04/26/23 04/27/23 04/27/23 Range/Units 20:05 06:00 09:09 WBC 12.1 H (3.8-10.6) k/uL RBC 3.31 L (3.80-5.40) m/uL Hgb 9.7 L (11.4-16.0) gm/dL Hct 31.3 L (34.0-46.0) % Plt Count 141 L (150-450) k/uL Neutrophils # 10.9 H (1.3-7.7) k/uL Lymphocytes # 0.5 L (1.0-4.8) k/uL Sodium (137-145) mmol/L BUN (7-17) mg/dL Glucose (74-99) mg/dL POC Glucose (mg/dL) 386 H 381 H (70-110) mg/dL Procalcitonin (0.02-0.09) ng/mL Urine Appearance (Clear) Urine Protein (Negative) Urine Glucose (UA) (Negative) Urine Ketones (Negative) Urine Blood (Negative) Ur Leukocyte Esterase (Negative) Urine WBC (0-5) /hpf Urine Bacteria (None) /hpf Urine Mucus (None) /hpf 04/27/23 04/27/23 Range/Units 09:09 11:33 WBC (3.8-10.6) k/uL RBC (3.80-5.40) m/uL Hgb (11.4-16.0) gm/dL Hct (34.0-46.0) % Plt Count (150-450) k/uL Neutrophils # (1.3-7.7) k/uL Lymphocytes # (1.0-4.8) k/uL Sodium 132 L (137-145) mmol/L BUN 22 H (7-17) mg/dL Glucose 411 H (74-99) mg/dL POC Glucose (mg/dL) 398 H (70-110) mg/dL Procalcitonin (0.02-0.09) ng/mL Urine Appearance (Clear) Urine Protein (Negative) Urine Glucose (UA) (Negative) Urine Ketones (Negative) Urine Blood (Negative) Ur Leukocyte Esterase (Negative) Urine WBC (0-5) /hpf Urine Bacteria (None) /hpf Urine Mucus (None) /hpf Assessment and Plan Assessment: Atrial fibrillation with RVR, new onset Febrile illness,, no clear source of infection, could be related to UTI or bowel infection. Metastatic uterine cancer, status post hysterectomy, status post chemotherapy. it looks end-stage with metastasis to the intra-abdominal cavity and probably Lung (as per patient) Mild acute kidney injury Diabetes mellitus with hyperglycemia, present on admission Mild sepsis with leukocytosis and fever but patient is immunocompromised borderline hypotension , could be related to sepsis Obesity Plan: Continue with metoprolol increased the dose to 50 mg per documentation specialist. Monitor granulation per documentation specialist Cardiology consult Continue with intravenous hydration We'll start empirically on antibiotic and sent and culture. We will start on Levaquin for possible gastroenteritis. Consult infectious disease team Hematology/oncology consult called insulin drip by patient, place patient on insulin sliding scale Labs and medication were reviewed.. Continue same treatment. Continue with symptomatic treatment. Resume home medication. Monitor labs and vitals. DVT and GI prophylaxis. Further recommendations as per clinical course of the patient DVT prophylaxis: Subcutaneous heparin GI Prophylaxis: Pepcid PT/OT: Pending Prognosis is guarded
[2023-04-27] MEDS: INSULIN DETEMIR (LEVEMIR) 100 UNIT/ML SYR SQ SCH (13:08)
[2023-04-27] MEDS: metroNIDAZOLE-NS PMX 500 MG in SALINE 1 100ML.BAG IVPB SCH ×2 (15:21→23:34)
[2023-04-27 16:25] LABS: Glucose,Whole Blood 398 mg/dL (70-110)
[2023-04-27] MEDS: CEFEPIME 2 GM in SODIUM CHLORIDE 0.9% 100 ML IVPB SCH ×2 (16:33→23:34)
[2023-04-27] MEDS ORDERED: LEVOFLOXACIN 250MG-D5W PMX 250 MG in DEXTROSE/WATER 1 50ML.BAG IVPB SCH (19:00)
[2023-04-27 19:48] LABS: Glucose,Whole Blood 390 mg/dL (70-110)
--- NOTE | 2023-04-27 20:04 | P.CONS ---
History of Present Illness - Reason for Consult Consult date: 04/27/23 Febrile illness Requesting physician: Armando E Sheet - Chief Complaint weakness and fall x 1 day - History of Present Illness Patient is a 73-year-old female with a past medical history significant for metastatic uterine cancer in this patient who has received ale nima as well as chemo and radiation patient recently returned from [place] after spending 14 months there for treatment and she was told there for treatment and she was told there for treatment and she was told that she has only few months to live because of failure of treatment and the patient moved back to [place] to meet with her family member, the day of presentation to the ER patient did have increased weakness and apparently it fell out of the bed sister was not able to get her out EMS was called and the patient was brought into the ER on presentation to the hospital patient did have a fever of 100.1 degrees following height and subsequently been to spike a fever of 101.3 degrees following height this morning patient is currently breathing comfortably on room air patient denies having any headache or URI symptoms no chest pain did have some shortness of breath but not requiring any supplemental oxygen no cough some nausea but no vomiting has been complaining of lower abdominal pain more of a dull aching 3-4 of 10 no radiation denies any diarrhea or blood or mucus in the stool on presentation to the hospital patient did have vital of 13.5 with a left shift did have a creatinine 0.97 liver enzymes mildly elevated urine was mildly positive influenza RSV and COVID testing was negative patient did have a chest x-ray that was reported negative for acute cardiopulmonary disease patient was started on Levaquin infectious disease was consulted for further management of antibiotic therapy patient did have a CT of abdominal pelvis completed on 04/25/2023 as an outpatient we did shows enlarging bilobed metastatic lesion anterior right pararenal space with probable invasion of the hepatic serosa new mass effect upon the ascending colon with serosal invasion difficult to exclude 6 mm pulmonary nodule at the left lung base Review of Systems Positive point and negatives has been mentioned in the HPI, complete review of systems was performed and all other systems are negative Past Medical History Past Medical History: Diabetes Mellitus, Hyperlipidemia, Hypertension, Pneumonia Additional Past Medical History / Comment(s): migraines,bronchitis, "chest xray showed inflammation in my lung", HX BREAST CANCER AMD LT LYMPHADENOPATHY. POST MENOPAUSAL BLEEDING History of Any Multi-Drug Resistant Organisms: None Reported Past Surgical History: Breast Surgery, Section, Tonsillectomy Additional Past Surgical History / Comment(s): amadou mastectomy- left lymphadenectomy, cataracts, Past Anesthesia/Blood Transfusion Reactions: Motion Sickness, Postoperative Nausea & Vomiting (PONV) Past Psychological History: No Psychological Hx Reported Past Alcohol Use History: None Reported Past Drug Use History: None Reported - Past Family History Mother Family Medical History: Cancer Additional Family Medical History / Comment(s): breast Sister(s) Family Medical History: Cancer Additional Family Medical History / Comment(s): breast Medications and Allergies Home Medications Medication Instructions Recorded Confirmed Type DULoxetine HCL [Cymbalta] 40 mg PO DAILY 04/26/23 04/26/23 History Ferrous Sulfate [Iron (65 MG 325 mg PO DAILY 04/26/23 04/26/23 History Elemental)] LORazepam [Ativan] 1 mg PO TID PRN 04/26/23 04/26/23 History Omeprazole 20 mg PO DAILY 04/26/23 04/26/23 History Ondansetron Odt [Zofran ODT] 4 mg PO Q8HR PRN 04/26/23 04/26/23 History Pregabalin [Lyrica] 75 mg PO BID 04/26/23 04/26/23 History Sennosides/Docusate Sodium [Senna 2 tab PO BID PRN 04/26/23 04/26/23 History Plus 8.6-50 mg Tablet] hydrOXYzine HCL [Atarax] 10 - 20 mg PO HS PRN 04/26/23 04/26/23 History metFORMIN HCL ER [Glucophage XR] 500 mg PO PC-BID 04/26/23 04/26/23 History INSULIN ASPART (NovoLOG) [NovoLOG See Rx Instructions .ROUTE 05/03/23 Rx (formulary)] .COMPLEX 30 Days #30 each Insulin Detemir (Levemir) [Levemir] 18 unit SQ DAILY@0700 30 Days #30 05/03/23 Rx each Metoprolol Succinate (ER) [Toprol 50 mg PO BID 30 Days #60 tab 05/03/23 Rx XL] Naloxegol Oxalate [Movantik] 25 mg PO DAILY PRN 30 Days #30 05/03/23 Rx tablet Pen Needle, Diabetic [Embrace Pen 1 each MC TID 30 Days #100 each 05/03/23 Rx Needle] cefUROXime axetiL [Ceftin] 500 mg PO BID 7 Days #14 tab 05/03/23 Rx oxyCODONE HCL [Roxicodone] 5 mg PO Q6HR PRN 3 Days #12 tab 05/03/23 Rx Allergies Allergy/AdvReac Type Severity Reaction Status Date / Time Penicillins Allergy Rash/Hives Verified 04/26/23 13:24 Physical Exam Vitals: Vital Signs Temp Pulse Pulse Resp BP Pulse Ox 04/27/23 10:50 99.8 F H 77 18 104/49 96 04/27/23 08:40 101.3 F H 92 17 90/50 94 L 04/27/23 04:00 98.8 F 96 18 138/65 98 04/27/23 02:00 96 04/27/23 00:00 100.3 F H 96 18 134/62 98 04/26/23 20:00 98.2 F 98 18 129/58 97 04/26/23 18:05 102 H 18 04/26/23 18:00 98.6 F 102 H 18 162/65 97 04/26/23 13:25 98 Intake and Output 04/26/23 04/27/23 04/27/23 22:59 06:59 14:59 Intake Total 92.667 240 Output Total 300 300 Balance -207.333 -60 Intake: Intake, IV Titration 92.667 Amount Diltiazem 125 mg In 92.667 Sodium Chloride 0.9% 100 ml @ 5 MG/HR 5 mls/hr IV .Q24H [facility] Rx#:[id number] Oral 240 Output: Urine 300 300 Other: Voiding Method External Catheter External Catheter External Catheter # Voids 1 1 # Bowel Movements 1 Weight 97.522 kg GENERAL DESCRIPTION: Elderly female lying in bed, no distress. No tachypnea or accessory muscle of respiration use. HEENT: Shows Pallor , no scleral icterus. Oral mucous membrane is dry. No pharyngeal erythema or thrush NECK: Trachea central, no thyromegaly. LUNGS: Unlabored breathing. Clear to auscultation anteriorly. No wheeze or crackle. HEART: S1, S2, regular rate and rhythm. No loud murmur ABDOMEN: Soft, no tenderness , guarding or rigidity, no organomegaly EXTREMITIES: No edema of feet. SKIN: No rash, no masses palpable. NEUROLOGICAL: The patient is awake, alert, oriented x3, mood and affect normal. Results CBC & Chem 7: 05/03/23 08:37 05/02/23 10:13 Labs: Abnormal Lab Results - Last 24 Hours (Table) 04/26/23 04/26/23 04/26/23 Range/Units 11:26 11:26 16:34 WBC (3.8-10.6) k/uL RBC (3.80-5.40) m/uL Hgb (11.4-16.0) gm/dL Hct (34.0-46.0) % Plt Count (150-450) k/uL Neutrophils # (1.3-7.7) k/uL Lymphocytes # (1.0-4.8) k/uL Sodium (137-145) mmol/L BUN (7-17) mg/dL Glucose (74-99) mg/dL POC Glucose (mg/dL) 347 H (70-110) mg/dL Procalcitonin 1.18 H (0.02-0.09) ng/mL Urine Appearance Cloudy H (Clear) Urine Protein 2+ H (Negative) Urine Glucose (UA) 4+ H (Negative) Urine Ketones 1+ H (Negative) Urine Blood Small H (Negative) Ur Leukocyte Esterase Small H (Negative) Urine WBC 20 H (0-5) /hpf Urine Bacteria Many H (None) /hpf Urine Mucus Rare H (None) /hpf 04/26/23 04/27/23 04/27/23 Range/Units 20:05 06:00 09:09 WBC 12.1 H (3.8-10.6) k/uL RBC 3.31 L (3.80-5.40) m/uL Hgb 9.7 L (11.4-16.0) gm/dL Hct 31.3 L (34.0-46.0) % Plt Count 141 L (150-450) k/uL Neutrophils # 10.9 H (1.3-7.7) k/uL Lymphocytes # 0.5 L (1.0-4.8) k/uL Sodium (137-145) mmol/L BUN (7-17) mg/dL Glucose (74-99) mg/dL POC Glucose (mg/dL) 386 H 381 H (70-110) mg/dL Procalcitonin (0.02-0.09) ng/mL Urine Appearance (Clear) Urine Protein (Negative) Urine Glucose (UA) (Negative) Urine Ketones (Negative) Urine Blood (Negative) Ur Leukocyte Esterase (Negative) Urine WBC (0-5) /hpf Urine Bacteria (None) /hpf Urine Mucus (None) /hpf 04/27/23 04/27/23 Range/Units 09:09 11:33 WBC (3.8-10.6) k/uL RBC (3.80-5.40) m/uL Hgb (11.4-16.0) gm/dL Hct (34.0-46.0) % Plt Count (150-450) k/uL Neutrophils # (1.3-7.7) k/uL Lymphocytes # (1.0-4.8) k/uL Sodium 132 L (137-145) mmol/L BUN 22 H (7-17) mg/dL Glucose 411 H (74-99) mg/dL POC Glucose (mg/dL) 398 H (70-110) mg/dL Procalcitonin (0.02-0.09) ng/mL Urine Appearance (Clear) Urine Protein (Negative) Urine Glucose (UA) (Negative) Urine Ketones (Negative) Urine Blood (Negative) Ur Leukocyte Esterase (Negative) Urine WBC (0-5) /hpf Urine Bacteria (None) /hpf Urine Mucus (None) /hpf Assessment and Plan (1) Sepsis Current Visit: Yes Status: Acute Code(s): A41.9 - SEPSIS, UNSPECIFIED ORGANISM SNOMED Code(s): 60890923 Plan: 1patient to the hospital with sepsis in this patient who did have a fever elevated white count source likely abdominal in this patient who did have a history of metastatic uterine cancer with a recent CAT scan completed on 04/25/2023 did shows invasion of the hepatic serosa as well as ascending colon and concern for possible colitis and will need to cover for the enteric gram- negative both aerobes and anaerobes 2patient with a history of penicillin allergy rash no history of anaphylaxis 3-discontinue Levaquin 4-start the patient on cefepime and Flagyl 5-check inflammatory markers We will follow on clinical condition and cultures to further adjust medication if needed Thank you for this consultation we will follow the patient along with you Time with Patient: Greater than 30
[2023-04-27] MEDS: LORazepam 0.5 MG TAB PO SCH (20:05)
[2023-04-27] MEDS: ATORVASTATIN 20 MG TAB PO SCH (20:05)
[2023-04-27] MEDS ORDERED: RX INFO: IV CONTRAST WAS GIVEN 1 EACH MISC MISCELLANE PRN (21:32)
[2023-04-28] MEDS: SODIUM CHLORIDE 0.9% 1,000 ML IV SCH ×3 (01:19→19:30)
[2023-04-28 05:50] LABS: Glucose,Whole Blood 286 mg/dL (70-110)
[2023-04-28] MEDS: INSULIN DETEMIR (LEVEMIR) 100 UNIT/ML SYR SQ SCH (06:00)
[2023-04-28] MEDS: INSULIN ASPART (NovoLOG) 100 UNIT/ML VIAL SQ SCH ×4 (06:01→21:06)
[2023-04-28] MEDS: BUTALB/APAP/CAFF 50-325-40MG TAB PO PRN (07:27)
[2023-04-28 08:05] LABS: Basophils % (A) 0 %; Eosinophils # (A) 0.1 k/uL (0-0.7); Eosinophils % (A) 1 %; HCT 31.1 % (34.0-46.0); HGB 9.7 gm/dL (11.4-16.0); Hypochromasia Moderate; Lymphocytes # (A) 0.7 k/uL (1.0-4.8); Lymphocytes % (A) 8 %; MCH 28.8 pg (25.0-35.0); MCHC 31.2 g/dL (31.0-37.0); MCV 92.3 fL (80.0-100.0); Mean Platelet Volume 10.1; Monocytes # (A) 0.4 k/uL (0-1.0); Monocytes % (A) 4 %; Neutrophils # (A) 8.2 k/uL (1.3-7.7); Neutrophils % (A) 86 %; Platelet Count 148 k/uL (150-450); RBC 3.37 m/uL (3.80-5.40); RDW 14.5 % (11.5-15.5); WBC 9.6 k/uL (3.8-10.6)
[2023-04-28] MEDS: FERROUS SULFATE 325 MG TAB PO SCH (08:09)
[2023-04-28] MEDS: FAMOTIDINE 20 MG/2 ML VIAL IV SCH (08:09)
[2023-04-28] MEDS: metroNIDAZOLE-NS PMX 500 MG in SALINE 1 100ML.BAG IVPB SCH ×2 (08:09→15:42)
[2023-04-28] MEDS: METOPROLOL SUCCINATE (ER) 50 MG TAB.ER.24H PO SCH ×2 (08:09→19:29)
[2023-04-28] MEDS: PREGABALIN 75 MG CAP PO SCH ×2 (08:09→19:28)
[2023-04-28] MEDS: HEPARIN SODIUM,PORCINE/PF 5,000 UNIT/0.5 ML SYRINGE SQ SCH ×2 (08:10→15:42)
--- NOTE | 2023-04-28 08:10 | P.CONS ---
History of Present Illness - Reason for Consult Consult date: 04/27/23 metastatic cancer Requesting physician: Guy Oswald - Chief Complaint weakness - History of Present Illness Patient is a 73-year-old female with a significant history of metastatic uterine cancer. She was referred to Dr. Eric Henry by her PCP but has yet to establish care in our clinic. Patient recently moved back home from [place] after she was told by her oncologist she only had a few weeks left to live due to disease progression and was not tolerating treatments, at which time she was placed on hospice. However, patient states when she returned home she began to feel better, so was coming to our clinic for a second opinion. Patient had a hysterectomy in 2019 and underwent chemotherapy, however patient is unaware of what treatments she received. Records will be requested from oncologist. Patient presented to the ER for progressing weakness. She also complains of right-sided abdominal pain. Denies nausea vomiting diarrhea. Upon admission patient was febrile, t max 101.3. UA revealed UTI. Pt was started on levoquin. Urine culture pending. Chest x-ray showed no acute cardiac cardiopulmonary process. RSV, influenza, COVID negative. Hemoglobin 9.7, WBC 12.1, platelets 141,000. Review of Systems 10 point ROS is negative except as stated in the HPI Past Medical History Past Medical History: Diabetes Mellitus, Hyperlipidemia, Hypertension, Pneumonia Additional Past Medical History / Comment(s): migraines,bronchitis, "chest xray showed inflammation in my lung", HX BREAST CANCER AMD LT LYMPHADENOPATHY. POST MENOPAUSAL BLEEDING History of Any Multi-Drug Resistant Organisms: None Reported Past Surgical History: Breast Surgery, Section, Tonsillectomy Additional Past Surgical History / Comment(s): amadou mastectomy- left lymphadenectomy, cataracts, Past Anesthesia/Blood Transfusion Reactions: Motion Sickness, Postoperative Naus ea & Vomiting (PONV) Past Psychological History: No Psychological Hx Reported Past Alcohol Use History: None Reported Past Drug Use History: None Reported - Past Family History Mother Family Medical History: Cancer Additional Family Medical History / Comment(s): breast Sister(s) Family Medical History: Cancer Additional Family Medical History / Comment(s): breast Medications and Allergies Home Medications Medication Instructions Recorded Confirmed Type DULoxetine HCL [Cymbalta] 40 mg PO DAILY 04/26/23 04/26/23 History Ferrous Sulfate [Feosol] 325 mg PO DAILY 04/26/23 04/26/23 History LORazepam [Ativan] 1 mg PO TID PRN 04/26/23 04/26/23 History Metoprolol Succinate (ER) [Toprol 25 mg PO BID 04/26/23 04/26/23 History Xl] Naloxegol Oxalate [Movantik] 25 mg PO DAILY PRN 04/26/23 04/26/23 History Omeprazole 20 mg PO DAILY 04/26/23 04/26/23 History Ondansetron Odt [Zofran Odt] 4 mg PO Q8HR PRN 04/26/23 04/26/23 History Pregabalin [Lyrica] 75 mg PO BID 04/26/23 04/26/23 History Sennosides/Docusate Sodium [Senna 2 tab PO BID PRN 04/26/23 04/26/23 History Plus 8.6-50 mg Tablet] hydrOXYzine HCL [Atarax] 10 - 20 mg PO HS PRN 04/26/23 04/26/23 History metFORMIN HCL ER [Glucophage XR] 500 mg PO PC-BID 04/26/23 04/26/23 History oxyCODONE HCL [Roxicodone] 5 mg PO Q6HR PRN 04/26/23 04/26/23 History Allergies Allergy/AdvReac Type Severity Reaction Status Date / Time Penicillins Allergy Rash/Hives Verified 04/26/23 13:24 Physical Exam Vitals: Vital Signs Temp Pulse Resp BP Pulse Ox 04/27/23 20:00 98.1 F 110 H 18 116/56 99 04/27/23 14:55 100 F H 98 17 119/76 96 04/27/23 10:50 99.8 F H 77 18 104/49 96 04/27/23 08:40 101.3 F H 92 17 90/50 94 L 04/27/23 04:00 98.8 F 96 18 138/65 98 04/27/23 02:00 96 04/27/23 00:00 100.3 F H 96 18 134/62 98 Intake and Output 04/27/23 04/27/23 04/27/23 06:59 14:59 22:59 Intake Total 92.667 960 Output Total 300 300 550 Balance -207.333 660 -550 Intake: Intake, IV Titration 92.667 Amount Diltiazem 125 mg In 92.667 Sodium Chloride 0.9% 100 ml @ 5 MG/HR 5 mls/hr IV .Q24H [facility] Rx#:[id number] Oral 960 Output: Urine 300 300 550 Other: Voiding Method External Catheter External Catheter External Catheter # Voids 1 - Constitutional General appearance: average body habitus, no acute distress - EENT Eyes: anicteric sclerae, EOMI ENT: hearing grossly normal - Respiratory Respiratory: bilateral: CTA - Cardiovascular Rhythm: regular Heart sounds: normal: S1, S2 Abnormal Heart Sounds: no systolic murmur, no diastolic murmur, no rub, no S3 Gallop, no S4 Gallop, no click, no other - Gastrointestinal General gastrointestinal: normal bowel sounds, soft, tenderness Localized gastrointestinal: tender: RUQ, RLQ - Integumentary Integumentary: no cyanotic, no rash - Neurologic grossly intact - Musculoskeletal Musculoskeletal: strength equal bilaterally - Psychiatric Psychiatric: A&O x's 3, appropriate affect, intact judgment & insight Results CBC & Chem 7: 04/28/23 07:29 04/27/23 09:09 Labs: Abnormal Lab Results - Last 24 Hours (Table) 04/26/23 04/27/23 04/27/23 Range/Units 11:26 06:00 09:09 WBC (3.8-10.6) k/uL RBC (3.80-5.40) m/uL Hgb (11.4-16.0) gm/dL Hct (34.0-46.0) % Plt Count (150-450) k/uL Neutrophils # (1.3-7.7) k/uL Lymphocytes # (1.0-4.8) k/uL Sodium (137-145) mmol/L BUN (7-17) mg/dL Glucose (74-99) mg/dL POC Glucose (mg/dL) 381 H (70-110) mg/dL Hemoglobin A1c 7.4 H (0.0-6.0) % Procalcitonin 1.18 H (0.02-0.09) ng/mL 04/27/23 04/27/23 04/27/23 Range/Units 09:09 09:09 11:33 WBC 12.1 H (3.8-10.6) k/uL RBC 3.31 L (3.80-5.40) m/uL Hgb 9.7 L (11.4-16.0) gm/dL Hct 31.3 L (34.0-46.0) % Plt Count 141 L (150-450) k/uL Neutrophils # 10.9 H (1.3-7.7) k/uL Lymphocytes # 0.5 L (1.0-4.8) k/uL Sodium 132 L (137-145) mmol/L BUN 22 H (7-17) mg/dL Glucose 411 H (74-99) mg/dL POC Glucose (mg/dL) 398 H (70-110) mg/dL Hemoglobin A1c (0.0-6.0) % Procalcitonin (0.02-0.09) ng/mL 04/27/23 04/27/23 Range/Units 16:22 19:46 WBC (3.8-10.6) k/uL RBC (3.80-5.40) m/uL Hgb (11.4-16.0) gm/dL Hct (34.0-46.0) % Plt Count (150-450) k/uL Neutrophils # (1.3-7.7) k/uL Lymphocytes # (1.0-4.8) k/uL Sodium (137-145) mmol/L BUN (7-17) mg/dL Glucose (74-99) mg/dL POC Glucose (mg/dL) 398 H 390 H (70-110) mg/dL Hemoglobin A1c (0.0-6.0) % Procalcitonin (0.02-0.09) ng/mL Microbiology - Last 24 Hours (Table) 04/26/23 11:26 Urine Culture - Preliminary Urine,Voided Chest x-ray: report reviewed Assessment and Plan (1) Metastatic cancer Current Visit: Yes Status: Acute Priority: High Code(s): C79.9 - SECONDARY MALIGNANT NEOPLASM OF UNSPECIFIED SITE SNOMED Code(s): 728184992 Plan: Metastatic uterine cancer: -Significant history of metastatic uterine cancer. Patient had a hysterectomy in 2019 and underwent chemotherapy, however patient is unaware of what treatments she received. Records will be requested from oncologist. -She was referred to Dr. Eric Henry by her PCP but has yet to establish care in our clinic. Patient recently moved back home from [place] after she was told by her oncologist she only had a few weeks left to live due to disease progression and was not tolerating treatments, at which time she was placed on hospice. However, patient states when she returned home she began to feel better, so was coming to our clinic for a second opinion. -Will schedule f/u in clinic upon discharge -CT chest ordered for staging attests: I have performed H&P and developed impression and plan of care for patient, discussed with dictator. I agree with dictated note, documented as a scribe
[2023-04-28] MEDS: DULoxetine HCL 20 MG CAPSULE.DR PO SCH (08:11)
[2023-04-28 08:25] LABS: Albumin 2.9 g/dL (3.5-5.0); Calcium 8.5 mg/dL (8.4-10.2); Potassium 4.3 mmol/L (3.5-5.1); Total Bilirubin 0.9 mg/dL (0.2-1.3); Total Protein 5.7 g/dL (6.3-8.2)
[2023-04-28] MEDS: CEFEPIME 2 GM in SODIUM CHLORIDE 0.9% 100 ML IVPB SCH ×2 (09:52→19:29)
[2023-04-28] MEDS: PROMETHAZINE 25 MG TAB PO PRN (09:53)
--- NOTE | 2023-04-28 10:34 | P.PN ---
Subjective Progress Note Date: 04/28/23 HISTORY OF PRESENT ILLNESS: This is a 73-year-old female with a past medical history significant for breast cancer, uterine cancer with metastasis, atrial fibrillation, nonsustained ventricular tachycardia, hypertension, diabetes, and hyperlipidemia. Patient follows in the office with Dr. Motta but has not been seen in the office since November 2021 as she has been living out in [place]. We have been asked to see the patient in consultation for atrial fibrillation. Patient examined at the bedside. Patient presented to the hospital for chief complaint of generalized weakness. She also reports that she rolled out of bed the other day but did not sustain any injuries. She denies any chest pain or pressure. She denies any shortness of breath. She denies any palpitations. EKG on admission revealed atrophic relation with RVR. She was started on IV Cardizem. This morning telemetry reveals sinus mechanism with PACs. The patient was previously on Xarelto. However she states that she developed bleeding and anemia with a hemoglobin of 7 which they thought may be related to her metastatic disease and her anticoagulation was discontinued. The patient also reports she was having nonsustained ventricular tachycardia in October 2022 while in [place]. She states that she underwent a stress test which was negative to her knowledge. She denies having a cardiac catheterization. * EKG reveals atrial flutter ablation with RVR * Chest xray negative for acute process * Patient underwent CT abdomen and pelvis on 04/25/2023 revealing enlarging bilobed metastatic lesion anterior right pararenal space with probable invasion of the hepatic serosa. There is no mass effect upon the descending colon with serosal invasion difficult to exclude. New 6 mm pulmonary nodule at the left lung base. * Laboratory data: WBC 12.1. Hemoglobin 9.7. Platelet count 141. Sodium 132. Potassium 4.7. BUN 22. Creatinine 0.97. TSH 2.090. * Current home cardiac medications include metoprolol succinate 25 mg twice a day * Most recent echocardiogram obtained in July 2021 revealed ejection fraction 55%, mild LVH * Patient underwent [employer] loop recorder in March 2021 04/28/2023 Patient examined this morning at the bedside. Patient states that she feels unwell this morning but is vague in her symptoms. She denies chest pain or pressure. She denies shortness of breath. Telemetry reveals atrial fibrillation with heart in the 80s. Echocardiogram completed revealing ejection fraction 50-55%, mild , and mild MR. Blood pressure stable. PHYSICAL EXAM: VITAL SIGNS: Reviewed. GENERAL: Well-developed in no acute distress. HEENT: Head is normocephalic. Pupils are equal, round. Sclerae anicteric. Mucous membranes of the mouth are moist. Neck supple. No JVD or thyromegaly LUNGS: Respirations even and unlabored. Lungs essentially clear to auscultation bilaterally. HEART: Regular rate and rhythm. S1 and S2 heard. ABDOMEN: Soft. Nondistended. Nontender. EXTREMITIES: Normal range of motion. No clubbing or cyanosis. Peripheral pulses intact. No lower extremity edema NEUROLOGIC: Awake and alert. Oriented x 3. ASSESSMENT: Generalized weakness S/P fall from bed with no apparent injuries Fever Atrial fibrillation with RVR, unknown if paroxysmal or persistent History of uterine cancer with metastasis to intra-abdominal cavity and suspected lung with pulmonary nodules noted on recent CT Recent history of bleeding and anemia, thought to be secondary to above History of breast cancer History of nonsustained ventricular tachycardia History of loop recorder implantation Hypertension Hyperlipidemia Diabetes PLAN: Oncology following. Patient scheduled for chest CT. Continue current cardiac medications Continue telemetry monitoring No anticoagulation secondary to patient's history of anemia/bleeding Further recommendations pending patient course Nurse practitioner note has been reviewed by physician. Signing provider agrees with the documented findings, assessment, and plan of care. Objective - Vital Signs Vital signs: Vital Signs Temp 100.1 F H 04/28/23 08:10 Pulse 108 H 04/28/23 08:10 Resp 18 04/28/23 08:10 BP 112/56 04/28/23 08:10 Pulse Ox 93 L 04/28/23 08:10 FiO2 Intake & Output 04/27/23 04/28/23 04/28/23 18:59 06:59 18:59 Intake Total 960 100 Output Total 850 950 800 Balance 110 -950 -700 Intake: Oral 960 100 Output: Urine 850 950 800 Other: Voiding Method External Catheter External Catheter External Catheter # Voids 1 - Labs CBC & Chem 7: 04/28/23 07:29 04/28/23 07:29 Labs: Abnormal Lab Results - Last 24 Hours (Table) 04/27/23 04/27/23 04/27/23 Range/Units 09:09 11:33 16:22 RBC (3.80-5.40) m/uL Hgb (11.4-16.0) gm/dL Hct (34.0-46.0) % Plt Count (150-450) k/uL Neutrophils # (1.3-7.7) k/uL Lymphocytes # (1.0-4.8) k/uL Sodium (137-145) mmol/L BUN (7-17) mg/dL Glucose (74-99) mg/dL POC Glucose (mg/dL) 398 H 398 H (70-110) mg/dL Hemoglobin A1c 7.4 H (0.0-6.0) % Alkaline Phosphatase (38-126) U/L Total Protein (6.3-8.2) g/dL Albumin (3.5-5.0) g/dL 04/27/23 04/28/23 04/28/23 Range/Units 19:46 05:48 07:29 RBC 3.37 L (3.80-5.40) m/uL Hgb 9.7 L (11.4-16.0) gm/dL Hct 31.1 L (34.0-46.0) % Plt Count 148 L (150-450) k/uL Neutrophils # 8.2 H (1.3-7.7) k/uL Lymphocytes # 0.7 L (1.0-4.8) k/uL Sodium (137-145) mmol/L BUN (7-17) mg/dL Glucose (74-99) mg/dL POC Glucose (mg/dL) 390 H 286 H (70-110) mg/dL Hemoglobin A1c (0.0-6.0) % Alkaline Phosphatase (38-126) U/L Total Protein (6.3-8.2) g/dL Albumin (3.5-5.0) g/dL 04/28/23 Range/Units 07:29 RBC (3.80-5.40) m/uL Hgb (11.4-16.0) gm/dL Hct (34.0-46.0) % Plt Count (150-450) k/uL Neutrophils # (1.3-7.7) k/uL Lymphocytes # (1.0-4.8) k/uL Sodium 131 L (137-145) mmol/L BUN 26 H (7-17) mg/dL Glucose 264 H (74-99) mg/dL POC Glucose (mg/dL) (70-110) mg/dL Hemoglobin A1c (0.0-6.0) % Alkaline Phosphatase 163 H (38-126) U/L Total Protein 5.7 L (6.3-8.2) g/dL Albumin 2.9 L (3.5-5.0) g/dL Microbiology - Last 24 Hours (Table) 04/26/23 19:14 Blood Culture - Preliminary Blood 04/26/23 11:26 Urine Culture - Preliminary Urine,Voided
[2023-04-28 10:44] LABS: C Reactive Protein 33.3 mg/dL (<1.0)
--- NOTE | 2023-04-28 11:00 | CT ---
EXAMINATION TYPE: CT chest w con DATE OF EXAM: 04/28/2023 COMPARISON: 02/07/2022 HISTORY: Staging, History of breast cancer CT DLP: 445.3 mGycm Automated exposure control for dose reduction was used. CONTRAST: CT scan of the chest is performed with IV Contrast, patient injected with 100 ml mL of Isovue 300. FINDINGS: LUNGS: There is a new noncalcified pulmonary nodule left lower lobe measuring 6.2 mm. No additional p ulmonary nodules are seen at this time. No evidence of infiltrate or volume loss. No pleural effusion . MEDIASTINUM: There are no greater than 1 cm hilar or mediastinal lymph nodes. No pericardial effusi on is seen. Thoracic aorta is of normal caliber. The heart is not enlarged. UPPER ABDOMEN: No significant abnormality appreciated. OTHER: Degenerative changes thoracic spine. IMPRESSION: There is a new noncalcified pulmonary nodule left lower lobe measuring 6.2 mm
[2023-04-28 11:38] LABS: Glucose,Whole Blood 286 mg/dL (70-110)
--- NOTE | 2023-04-28 14:14 | P.PN ---
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 She has evidence of metastatic disease to the right lower quadrant abdominal cavity and she was suppose to get surgical resection of her tumor but it starts bleeding and found to flow progressive disease so surgical intervention was canceled. Once she came to [place] she fell doing better and follow-up with her doctor who prescribed her CAT scan of the chest showing more pulmonary metastatic disease. After that she started feeling more weak and lethargic, this morning she was currently able to get out of bed so she came to emergency room. She denies any chest pain or dyspnea or coughing. She denies dysuria or urgency, she denies abdominal pain vomiting or diarrhea, she has mild right lower quadrant abdominal pain but this mostly related to her metastatic disease to her colon As per patient Patient is nonsmoker, she denies alcohol or illicit drugs Patient is a known diabetic and she was using insulin pump but it was not working lately so she took it off 04/27/2023 Patient awake alert, she feels little better today She denies urinary or respiratory symptoms. She is complaining of from nausea and generalized weakness. Also she has some tenderness in the right lower quadrant, right upper quadrant and epigastric area. It is mild with no guarding, no diarrhea. She is hemodynamically stable but she still running fever 101.3 today. Vitals and labs reviewed, glucose elevated. We will add Levemir 10 units today. Remains on normal saline 100 mL, Levaquin 500 mg, Cardizem drip was stopped and metoprolol dose increased to 50 mg. No need for anticoagulation per cardiology's were atrial fibrillation because of risk of GI bleed given her history of the same 04/28/2023 Patient reports improvement today, she has this right-sided abdominal pain and tenderness, his fever is coming down but not completely resolved. WBC is back to normal however production is elevated to 6.1. Urine culture is growing gram-negative bacilli and CT of the chest showing Left lower lobe pulmonary nodule about 6.2 mm. Most vital signs stable. Sugars still elevated, we added 8 units and currently she is going to be on Levemir 18 units daily. Her hemoglobin A1c is not bad at 7.4%. Echocardiogram showed ejection fraction of 50-55%. She remains on cefepime and Flagyl She was complaining of from some mild headache that is not resolved with Tylenol, Fioricet is added. We'll keep close monitoring Objective - Vital Signs Vital signs: Vital Signs Temp 100.1 F H 04/28/23 08:10 Pulse 108 H 04/28/23 08:10 Resp 18 04/28/23 08:10 BP 112/56 04/28/23 08:10 Pulse Ox 93 L 04/28/23 08:10 FiO2 Intake & Output 04/27/23 04/28/23 04/28/23 18:59 06:59 18:59 Intake Total 960 100 Output Total 850 950 800 Balance 110 -950 -700 Intake: Oral 960 100 Output: Urine 850 950 800 Other: Voiding Method External Catheter External Catheter External Catheter # Voids 1 - Exam GENERAL: The patient is alert and oriented x3, not in any acute distress. Obese HEENT: Pupils are round and equally reacting to light. EOMI. No scleral icterus. No conjunctival pallor. Normocephalic, atraumatic. No pharyngeal erythema. No thyromegaly. CARDIOVASCULAR: S1 and S2 present. No murmurs, rubs, or gallops. PULMONARY: Chest is clear to auscultation, no wheezing or crackles. -ABDOMEN: Soft, right-sided tenderness, no rebound tenderness, no guarding, nondistended, normoactive bowel sounds. No palpable organomegaly. MUSCULOSKELETAL: No joint swelling or deformity. EXTREMITIES: No cyanosis, clubbing, or pedal edema. NEUROLOGICAL: Gross neurological examination did not reveal any focal deficits. SKIN: No rashes. no petechiae. - Labs CBC & Chem 7: 04/28/23 07:29 04/28/23 07:29 Labs: Abnormal Lab Results - Last 24 Hours (Table) 04/27/23 04/27/23 04/27/23 Range/Units 09:09 16:22 19:46 RBC (3.80-5.40) m/uL Hgb (11.4-16.0) gm/dL Hct (34.0-46.0) % Plt Count (150-450) k/uL Neutrophils # (1.3-7.7) k/uL Lymphocytes # (1.0-4.8) k/uL Sodium (137-145) mmol/L BUN (7-17) mg/dL Glucose (74-99) mg/dL POC Glucose (mg/dL) 398 H 390 H (70-110) mg/dL Hemoglobin A1c 7.4 H (0.0-6.0) % Alkaline Phosphatase (38-126) U/L C-Reactive Protein (<1.0) mg/dL Total Protein (6.3-8.2) g/dL Albumin (3.5-5.0) g/dL Procalcitonin (0.02-0.09) ng/mL 04/28/23 04/28/23 04/28/23 Range/Units 05:48 07:29 07:29 RBC 3.37 L (3.80-5.40) m/uL Hgb 9.7 L (11.4-16.0) gm/dL Hct 31.1 L (34.0-46.0) % Plt Count 148 L (150-450) k/uL Neutrophils # 8.2 H (1.3-7.7) k/uL Lymphocytes # 0.7 L (1.0-4.8) k/uL Sodium (137-145) mmol/L BUN (7-17) mg/dL Glucose (74-99) mg/dL POC Glucose (mg/dL) 286 H (70-110) mg/dL Hemoglobin A1c (0.0-6.0) % Alkaline Phosphatase (38-126) U/L C-Reactive Protein (<1.0) mg/dL Total Protein (6.3-8.2) g/dL Albumin (3.5-5.0) g/dL Procalcitonin 6.12 H (0.02-0.09) ng/mL 04/28/23 04/28/23 Range/Units 07:29 11:36 RBC (3.80-5.40) m/uL Hgb (11.4-16.0) gm/dL Hct (34.0-46.0) % Plt Count (150-450) k/uL Neutrophils # (1.3-7.7) k/uL Lymphocytes # (1.0-4.8) k/uL Sodium 131 L (137-145) mmol/L BUN 26 H (7-17) mg/dL Glucose 264 H (74-99) mg/dL POC Glucose (mg/dL) 286 H (70-110) mg/dL Hemoglobin A1c (0.0-6.0) % Alkaline Phosphatase 163 H (38-126) U/L C-Reactive Protein 33.3 H (<1.0) mg/dL Total Protein 5.7 L (6.3-8.2) g/dL Albumin 2.9 L (3.5-5.0) g/dL Procalcitonin (0.02-0.09) ng/mL Microbiology - Last 24 Hours (Table) 04/26/23 11:26 Urine Culture - Preliminary Urine,Voided Gram Neg Bacilli 04/26/23 19:14 Blood Culture - Preliminary Blood Assessment and Plan Assessment: Atrial fibrillation with RVR, new onset Febrile illness,, no clear source of infection, could be related to UTI or bowel infection. Metastatic uterine cancer, status post hysterectomy, status post chemotherapy. it looks end-stage with metastasis to the intra-abdominal cavity and probably Lung (as per patient) Mild acute kidney injury Diabetes mellitus with hyperglycemia, present on admission Mild sepsis with leukocytosis and fever but patient is immunocompromised borderline hypotension , could be related to sepsis Obesity Plan: Continue with metoprolol increased the dose to 50 mg . Monitor granulation per tooling manager Cardiology consult Continue with intravenous hydration We'll start empirically on antibiotic and sent and culture. We will start on cefepime and Flagyl for possible gastroenteritis. Consult infectious disease team is appreciated Hematology/oncology consult called Continue with Levemir 18 units add Fioricet for headache Labs and medication were reviewed.. Continue same treatment. Continue with symptomatic treatment. Resume home medication. Monitor labs and vitals. DVT and GI prophylaxis. Further recommendations as per clinical course of the patient DVT prophylaxis: Subcutaneous heparin GI Prophylaxis: Pepcid PT/OT: Pending Prognosis is guarded
[2023-04-28] MEDS ORDERED: INSULIN DETEMIR (LEVEMIR) 100 UNIT/ML SYR SQ ONE (14:20)
--- NOTE | 2023-04-28 15:11 | P.PN ---
Subjective Progress Note Date: 04/28/23 Principal diagnosis: Sepsis possible abdominal source Patient is a 73-year-old female with a past medical history significant for metastatic OVARIAN cancer status post surgery and chemoradiation therapy, with recent progression of her disease and a CAT scan done in the outpatient setting on 04/25/2023 did shows invasion of the serosa of the liver as well as COLON Presented to the hospital with weakness fall noticed to be febrile On today's evaluation that is 04/28/2023, patient did have a low-grade fever 100.1 this morning, patient mentioning that feeling that good today denies any chest pain shortness of breath occasional cough still have some lower abdominal pain no worsening, no nausea no vomiting and no diarrhea Objective - Vital Signs Vital signs: Vital Signs Temp 98.3 F 04/28/23 11:30 Pulse 92 04/28/23 11:30 Resp 17 04/28/23 11:30 BP 118/58 04/28/23 11:30 Pulse Ox 95 04/28/23 11:30 FiO2 Intake & Output 04/27/23 04/28/23 04/28/23 18:59 06:59 18:59 Intake Total 960 100 Output Total 850 950 800 Balance 110 -950 -700 Intake: Oral 960 100 Output: Urine 850 950 800 Other: Voiding Method External Catheter External Catheter External Catheter # Voids 1 - Exam GENERAL DESCRIPTION: An elderly female lying in bed in no distress RESPIRATORY SYSTEM: Unlabored breathing , decreased breath sounds at bases HEART: S1 S2 regular rate and rhythm , ABDOMEN: Soft , no tenderness EXTREMITIES: No edema feet - Labs CBC & Chem 7: 04/28/23 07:29 04/28/23 07:29 Labs: Abnormal Lab Results - Last 24 Hours (Table) 04/27/23 04/27/23 04/27/23 Range/Units 09:09 16:22 19:46 RBC (3.80-5.40) m/uL Hgb (11.4-16.0) gm/dL Hct (34.0-46.0) % Plt Count (150-450) k/uL Neutrophils # (1.3-7.7) k/uL Lymphocytes # (1.0-4.8) k/uL Sodium (137-145) mmol/L BUN (7-17) mg/dL Glucose (74-99) mg/dL POC Glucose (mg/dL) 398 H 390 H (70-110) mg/dL Hemoglobin A1c 7.4 H (0.0-6.0) % Alkaline Phosphatase (38-126) U/L C-Reactive Protein (<1.0) mg/dL Total Protein (6.3-8.2) g/dL Albumin (3.5-5.0) g/dL Procalcitonin (0.02-0.09) ng/mL 04/28/23 04/28/23 04/28/23 Range/Units 05:48 07:29 07:29 RBC 3.37 L (3.80-5.40) m/uL Hgb 9.7 L (11.4-16.0) gm/dL Hct 31.1 L (34.0-46.0) % Plt Count 148 L (150-450) k/uL Neutrophils # 8.2 H (1.3-7.7) k/uL Lymphocytes # 0.7 L (1.0-4.8) k/uL Sodium (137-145) mmol/L BUN (7-17) mg/dL Glucose (74-99) mg/dL POC Glucose (mg/dL) 286 H (70-110) mg/dL Hemoglobin A1c (0.0-6.0) % Alkaline Phosphatase (38-126) U/L C-Reactive Protein (<1.0) mg/dL Total Protein (6.3-8.2) g/dL Albumin (3.5-5.0) g/dL Procalcitonin 6.12 H (0.02-0.09) ng/mL 04/28/23 04/28/23 Range/Units 07:29 11:36 RBC (3.80-5.40) m/uL Hgb (11.4-16.0) gm/dL Hct (34.0-46.0) % Plt Count (150-450) k/uL Neutrophils # (1.3-7.7) k/uL Lymphocytes # (1.0-4.8) k/uL Sodium 131 L (137-145) mmol/L BUN 26 H (7-17) mg/dL Glucose 264 H (74-99) mg/dL POC Glucose (mg/dL) 286 H (70-110) mg/dL Hemoglobin A1c (0.0-6.0) % Alkaline Phosphatase 163 H (38-126) U/L C-Reactive Protein 33.3 H (<1.0) mg/dL Total Protein 5.7 L (6.3-8.2) g/dL Albumin 2.9 L (3.5-5.0) g/dL Procalcitonin (0.02-0.09) ng/mL Microbiology - Last 24 Hours (Table) 04/26/23 11:26 Urine Culture - Preliminary Urine,Voided Gram Neg Bacilli 04/26/23 19:14 Blood Culture - Preliminary Blood Assessment and Plan (1) Sepsis Current Visit: Yes Status: Acute Code(s): A41.9 - SEPSIS, UNSPECIFIED ORGANI SM SNOMED Code(s): 59389834 Plan: 1patient to the hospital with sepsis in this patient who did have a fever elevated white count source likely abdominal in this patient who did have a history of metastatic uterine cancer with a recent CAT scan completed on 04/25/2023 did shows invasion of the hepatic serosa as well as ascending colon and concern for possible colitis and will need to cover for the enteric gram- negative both aerobes and anaerobes 2patient with a history of penicillin allergy rash no history of anaphylaxis 3We will continue the patient on cefepime and Flagyl, while waiting for the cultures to finalize Time with Patient: Less than 30
[2023-04-28 16:12] LABS: Glucose,Whole Blood 278 mg/dL (70-110)
[2023-04-28] MEDS: ACETAMINOPHEN TAB 325 MG TAB PO PRN (19:28)
[2023-04-28] MEDS: ATORVASTATIN 20 MG TAB PO SCH (19:29)
[2023-04-28] MEDS: LORazepam 0.5 MG TAB PO SCH (19:30)
[2023-04-28 20:41] LABS: Glucose,Whole Blood 294 mg/dL (70-110)
[2023-04-29] MEDS: HEPARIN SODIUM,PORCINE/PF 5,000 UNIT/0.5 ML SYRINGE SQ SCH ×4 (00:27→23:54)
[2023-04-29] MEDS: metroNIDAZOLE-NS PMX 500 MG in SALINE 1 100ML.BAG IVPB SCH ×4 (00:27→23:53)
[2023-04-29 06:15] LABS: Glucose,Whole Blood 213 mg/dL (70-110)
[2023-04-29] MEDS: SODIUM CHLORIDE 0.9% 1,000 ML IV SCH ×2 (06:35→15:15)
[2023-04-29] MEDS: INSULIN DETEMIR (LEVEMIR) 100 UNIT/ML SYR SQ SCH (06:36)
[2023-04-29] MEDS: INSULIN ASPART (NovoLOG) 100 UNIT/ML VIAL SQ SCH ×4 (06:36→20:21)
[2023-04-29] MEDS: PREGABALIN 75 MG CAP PO SCH ×2 (08:13→20:20)
[2023-04-29] MEDS: METOPROLOL SUCCINATE (ER) 50 MG TAB.ER.24H PO SCH ×2 (08:13→20:20)
[2023-04-29] MEDS: FERROUS SULFATE 325 MG TAB PO SCH (08:13)
[2023-04-29] MEDS: FAMOTIDINE 20 MG/2 ML VIAL IV SCH (08:14)
[2023-04-29] MEDS: CEFEPIME 2 GM in SODIUM CHLORIDE 0.9% 100 ML IVPB SCH ×2 (08:14→20:21)
[2023-04-29] MEDS: DULoxetine HCL 20 MG CAPSULE.DR PO SCH (08:14)
[2023-04-29] MEDS: BUTALB/APAP/CAFF 50-325-40MG TAB PO PRN ×2 (08:18→23:59)
[2023-04-29 12:18] LABS: Glucose,Whole Blood 231 mg/dL (70-110)
[2023-04-29] MEDS: LORazepam 0.5 MG TAB PO PRN (13:07)
--- NOTE | 2023-04-29 15:36 | P.PN ---
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 She has evidence of metastatic disease to the right lower quadrant abdominal cavity and she was suppose to get surgical resection of her tumor but it starts bleeding and found to flow progressive disease so surgical intervention was canceled. Once she came to [place] she fell doing better and follow-up with her doctor who prescribed her CAT scan of the chest showing more pulmonary metastatic disease. After that she started feeling more weak and lethargic, this morning she was currently able to get out of bed so she came to emergency room. She denies any chest pain or dyspnea or coughing. She denies dysuria or urgency, she denies abdominal pain vomiting or diarrhea, she has mild right lower quadrant abdominal pain but this mostly related to her metastatic disease to her colon As per patient Patient is nonsmoker, she denies alcohol or illicit drugs Patient is a known diabetic and she was using insulin pump but it was not working lately so she took it off 04/27/2023 Patient awake alert, she feels little better today She denies urinary or respiratory symptoms. She is complaining of from nausea and generalized weakness. Also she has some tenderness in the right lower quadrant, right upper quadrant and epigastric area. It is mild with no guarding, no diarrhea. She is hemodynamically stable but she still running fever 101.3 today. Vitals and labs reviewed, glucose elevated. We will add Levemir 10 units today. Remains on normal saline 100 mL, Levaquin 500 mg, Cardizem drip was stopped and metoprolol dose increased to 50 mg. No need for anticoagulation per cardiology's were atrial fibrillation because of risk of GI bleed given her history of the same 04/28/2023 Patient reports improvement today, she has this right-sided abdominal pain and tenderness, his fever is coming down but not completely resolved. WBC is back t o normal however production is elevated to 6.1. Urine culture is growing gram-negative bacilli and CT of the chest showing Left lower lobe pulmonary nodule about 6.2 mm. Sugars still elevated, we added 8 units and currently she is going to be on Levemir 18 units daily. Her hemoglobin A1c is not bad at 7.4%. Echocardiogram showed ejection fraction of 50-55%. She remains on cefepime and Flagyl She was complaining of from some mild headache that is not resolved with Tylenol, Fioricet is added. We'll keep close monitoring 04/29 As needed Ativan Daily ordered, NO new complaints Objective - Vital Signs Vital signs: Vital Signs Temp 98.3 F 04/29/23 11:17 Pulse 99 04/29/23 11:17 Resp 16 04/29/23 11:17 BP 107/52 04/29/23 11:17 Pulse Ox 93 L 04/29/23 11:17 FiO2 Intake & Output 04/28/23 04/29/23 04/29/23 18:59 06:59 18:59 Intake Total 218 1200 Output Total 1400 650 500 Balance -1182 -650 700 Intake: Oral 218 1200 Output: Urine 1400 650 500 Other: Voiding Method External Catheter External Catheter Bedside Commode # Voids 1 # Bowel Movements 1 - Exam GENERAL: The patient is alert and oriented x3, not in any acute distress. Obese HEENT: Pupils are round and equally reacting to light. EOMI. No scleral icterus. No conjunctival pallor. Normocephalic, atraumatic. No pharyngeal erythema. No thyromegaly. CARDIOVASCULAR: S1 and S2 present. No murmurs, rubs, or gallops. PULMONARY: Chest is clear to auscultation, no wheezing or crackles. ABDOMEN: Soft, right-sided tenderness Mass palpable , no rebound tenderness, no guarding, nondistended, normoactive bowel sounds. No palpable organomegaly. MUSCULOSKELETAL: No joint swelling or deformity. EXTREMITIES: No cyanosis, clubbing, or pedal edema. NEUROLOGICAL: Gross neurological examination did not reveal any focal deficits. SKIN: No rashes. no petechiae. - Labs CBC & Chem 7: 04/28/23 07:29 04/28/23 07:29 Labs: Abnormal Lab Results - Last 24 Hours (Table) 04/28/23 04/28/23 04/29/23 Range/Units 16:10 20:39 06:14 POC Glucose (mg/dL) 278 H 294 H 213 H (70-110) mg/dL 04/29/23 Range/Units 11:45 POC Glucose (mg/dL) 231 H (70-110) mg/dL Microbiology - Last 24 Hours (Table) 04/26/23 19:14 Blood Culture - Preliminary Blood Assessment and Plan Assessment: * Atrial fibrillation with RVR, new onset * Sepsis, Source Intraabdominal * Metastatic uterine cancer, status post hysterectomy, status post chemotherapy. it looks end-stage with metastasis to the intra-abdominal cavity and probably Lung (as per patient) * acute kidney injury * Diabetes mellitus with hyperglycemia, present on admission * Obesity Plan: Cardiology consulted, On Metoprolol Continue with intravenous hydration On cefepime and Flagyl ><> ID FOllwoing Hematology/oncology consulted Continue with Levemir , novolog Labs and medication were reviewed. DVT and GI prophylaxis. DVT prophylaxis: Subcutaneous heparin GI Prophylaxis: Pepcid
--- NOTE | 2023-04-29 16:29 | P.PN ---
Subjective Progress Note Date: 04/29/23 This is a 73-year-old female with a past medical history significant for breast cancer, uterine cancer with metastasis, atrial fibrillation, nonsustained ventricular tachycardia, hypertension, diabetes, and hyperlipidemia. Patient follows in the office with Dr. Motta but has not been seen in the office since November 2021 as she has been living out in [place]. We have been asked to see the patient in consultation for atrial fibrillation. Patient examined at the bedside. Patient presented to the hospital for chief complaint of generalized weakness. She also reports that she rolled out of bed the other day but did not sustain any injuries. She denies any chest pain or pressure. She denies any shortness of breath. She denies any palpitations. EKG on admission revealed atrophic relation with RVR. She was started on IV Cardizem. This morning telemetry reveals sinus mechanism with PACs. The patient was previously on Xarelto. However she states that she developed bleeding and anemia with a hemoglobin of 7 which they thought may be related to her metastatic disease and her anticoagulation was discontinued. The patient also reports she was having nonsustained ventricular tachycardia in October 2022 while in [place]. She states that she underwent a stress test which was negative to her knowledge. She denies having a cardiac catheterization. * EKG reveals atrial flutter ablation with RVR * Chest xray negative for acute process * Patient underwent CT abdomen and pelvis on 04/25/2023 revealing enlarging bilobed metastatic lesion anterior right pararenal space with probable invasion of the hepatic serosa. There is no mass effect upon the descending colon with serosal invasion difficult to exclude. New 6 mm pulmonary nodule at the left lung base. * Echocardiogram revealed ejection fraction 50-55% with mild AR and mild MR. * Patient underwent [employer] loop recorder in March 2021 04/29/2023 Is seen and examined resting comfortably in bed. He continues to have some rare episodes of dizziness/lightheadedness. Denies any chest pain or pressure. She denies any shortness of breath. She remains in atrial fibrillation with relatively well-controlled ventricular response. Objective - Vital Signs Vital signs: Vital Signs Temp 100 F H 04/29/23 15:43 Pulse 104 H 04/29/23 15:43 Resp 16 04/29/23 15:43 BP 107/52 04/29/23 15:43 Pulse Ox 95 04/29/23 15:43 FiO2 Intake & Output 04/28/23 04/29/23 04/29/23 18:59 06:59 18:59 Intake Total 218 1200 Output Total 1400 650 500 Balance -1182 -650 700 Intake: Oral 218 1200 Output: Urine 1400 650 500 Other: Voiding Method External Catheter External Catheter Bedside Commode # Voids 1 # Bowel Movements 1 - Exam PHYSICAL EXAM: VITAL SIGNS: Reviewed. GENERAL: Well-developed in no acute distress. HEENT: Head is normocephalic. Pupils are equal, round. Sclerae anicteric. Mucous membranes of the mouth are moist. Neck supple. No JVD or thyromegaly LUNGS: Respirations even and unlabored. Lungs essentially clear to auscultation bilaterally. HEART: Irregular rate and rhythm. S1 and S2 heard. ABDOMEN: Soft. Nondistended. Nontender. EXTREMITIES: Normal range of motion. No clubbing or cyanosis. Peripheral pulses intact. No lower extremity edema NEUROLOGIC: Awake and alert. Oriented x 3. - Labs CBC & Chem 7: 04/28/23 07:29 04/28/23 07:29 Labs: Abnormal Lab Results - Last 24 Hours (Table) 04/28/23 04/29/23 04/29/23 Range/Units 20:39 06:14 11:45 POC Glucose (mg/dL) 294 H 213 H 231 H (70-110) mg/dL Microbiology - Last 24 Hours (Table) 04/26/23 11:26 Urine Culture - Final Urine,Voided Klebsiella pneumoniae 04/26/23 19:14 Blood Culture - Preliminary Blood Assessment and Plan Assessment: Generalized weakness S/P fall from bed with no apparent injuries Fever Atrial fibrillation with RVR, unknown if paroxysmal or persistent History of uterine cancer with metastasis to intra-abdominal cavity and suspected lung with pulmonary nodules noted on recent CT Recent history of bleeding and anemia, thought to be secondary to above History of breast cancer History of nonsustained ventricular tachycardia History of loop recorder implantation Hypertension Hyperlipidemia Diabetes Plan: From cardiology's perspective medications were reviewed and we will continue the same. Continue to avoid anticoagulation secondary to patient's history of significant bleeding and anemia. Unfortunately patient's prognosis is poor related to her underlying malignancy. We will continue to follow her and pr ovide further recommendations accordingly. ASSISTANT CURATOR note has been reviewed, I agree with a documented findings and plan of care. Patient was seen and examined.
[2023-04-29] MEDS: ACETAMINOPHEN TAB 325 MG TAB PO PRN (16:37)
[2023-04-29 16:45] LABS: Glucose,Whole Blood 266 mg/dL (70-110)
--- NOTE | 2023-04-29 19:37 | P.PN ---
Subjective Progress Note Date: 04/29/23 Principal diagnosis: Sepsis possible abdominal source Patient is a 73-year-old female with a past medical history significant for metastatic OVARIAN cancer status post surgery and chemoradiation therapy, with recent progression of her disease and a CAT scan done in the outpatient setting on 04/25/2023 did shows invasion of the serosa of the liver as well as COLON Presented to the hospital with weakness fall noticed to be febrile On today's evaluation that is 04/29/2023, patient is afebrile this morning, patient is breathing comfortably on room air, denies any chest pain shortness of breath occasional cough still have some lower abdominal pain no worsening, no nausea no vomiting and no diarrhea Objective - Vital Signs Vital signs: Vital Signs Temp 99.4 F 04/29/23 08:00 Pulse 109 H 04/29/23 08:00 Resp 18 04/29/23 08:00 BP 115/65 04/29/23 08:00 Pulse Ox 96 04/29/23 08:00 FiO2 Intake & Output 04/28/23 04/29/23 04/29/23 18:59 06:59 18:59 Intake Total 218 240 Output Total 1400 650 500 Balance -1182 -650 -260 Intake: Oral 218 240 Output: Urine 1400 650 500 Other: Voiding Method External Catheter External Catheter Bedside Commode # Voids 1 # Bowel Movements 1 - Exam GENERAL DESCRIPTION: An elderly female lying in bed in no distress RESPIRATORY SYSTEM: Unlabored breathing , decreased breath sounds at bases HEART: S1 S2 regular rate and rhythm , ABDOMEN: Soft , no tenderness EXTREMITIES: No edema feet - Labs CBC & Chem 7: 04/28/23 07:29 04/28/23 07:29 Labs: Abnormal Lab Results - Last 24 Hours (Table) 04/28/23 04/28/23 04/28/23 Range/Units 07:29 07:29 11:36 POC Glucose (mg/dL) 286 H (70-110) mg/dL C-Reactive Protein 33.3 H (<1.0) mg/dL Procalcitonin 6.12 H (0.02-0.09) ng/mL 04/28/23 04/28/23 04/29/23 Range/Units 16:10 20:39 06:14 POC Glucose (mg/dL) 278 H 294 H 213 H (70-110) mg/dL C-Reactive Protein (<1.0) mg/dL Procalcitonin (0.02-0.09) ng/mL Microbiology - Last 24 Hours (Table) 04/26/23 19:14 Blood Culture - Preliminary Blood 04/26/23 11:26 Urine Culture - Preliminary Urine,Voided Gram Neg Bacilli Assessment and Plan (1) Sepsis Current Visit: Yes Status: Acute Code(s): A41.9 - SEPSIS, UNSPECIFIED ORGANISM SNOMED Code(s): 63698087 Plan: 1patient to the hospital with sepsis in this patient who did have a fever elevated white count source likely abdominal in this patient who did have a history of metastatic uterine cancer with a recent CAT scan completed on 04/25/2023 did shows invasion of the hepatic serosa as well as ascending colon and concern for possible colitis and will need to cover for the enteric gram- negative both aerobes and anaerobes vs UTI, however pt donot have any urinary symptoms 2patient with a history of penicillin allergy rash no history of anaphylaxis 3Pt will continue on cefepime and Flagyl, while waiting for the cultures to finalize , sister has many questions and concerns those were answered on the phone Time with Patient: Less than 30
[2023-04-29 20:01] LABS: Glucose,Whole Blood 294 mg/dL (70-110)
[2023-04-29] MEDS: LORazepam 0.5 MG TAB PO SCH (20:20)
[2023-04-29] MEDS: ATORVASTATIN 20 MG TAB PO SCH (20:20)
[2023-04-30] MEDS: SODIUM CHLORIDE 0.9% 1,000 ML IV SCH ×3 (01:39→23:53)
[2023-04-30 06:00] LABS: Glucose,Whole Blood 286 mg/dL (70-110)
[2023-04-30] MEDS: INSULIN ASPART (NovoLOG) 100 UNIT/ML VIAL SQ SCH ×4 (06:11→20:23)
[2023-04-30] MEDS: INSULIN DETEMIR (LEVEMIR) 100 UNIT/ML SYR SQ SCH (06:11)
[2023-04-30 07:46] LABS: HCT 31.8 % (34.0-46.0); HGB 9.7 gm/dL (11.4-16.0); Hypochromasia Marked; MCH 29.3 pg (25.0-35.0); MCHC 30.5 g/dL (31.0-37.0); MCV 96.2 fL (80.0-100.0); Mean Platelet Volume 10.5; Platelet Count 145 k/uL (150-450); RBC 3.31 m/uL (3.80-5.40); RDW 14.4 % (11.5-15.5); WBC 5.8 k/uL (3.8-10.6)
[2023-04-30 08:05] LABS: Calcium 8.4 mg/dL (8.4-10.2); Potassium 4.3 mmol/L (3.5-5.1)
[2023-04-30] MEDS: METOPROLOL SUCCINATE (ER) 50 MG TAB.ER.24H PO SCH ×2 (08:15→20:22)
[2023-04-30] MEDS: CEFEPIME 2 GM in SODIUM CHLORIDE 0.9% 100 ML IVPB SCH (08:15)
[2023-04-30] MEDS: FERROUS SULFATE 325 MG TAB PO SCH (08:15)
[2023-04-30] MEDS: HEPARIN SODIUM,PORCINE/PF 5,000 UNIT/0.5 ML SYRINGE SQ SCH ×3 (08:15→23:53)
[2023-04-30] MEDS: metroNIDAZOLE-NS PMX 500 MG in SALINE 1 100ML.BAG IVPB SCH ×3 (08:15→23:53)
[2023-04-30] MEDS: PREGABALIN 75 MG CAP PO SCH ×2 (08:15→20:22)
[2023-04-30] MEDS: FAMOTIDINE 20 MG/2 ML VIAL IV SCH (08:15)
[2023-04-30] MEDS: DULoxetine HCL 20 MG CAPSULE.DR PO SCH (08:15)
[2023-04-30] MEDS: ACETAMINOPHEN TAB 325 MG TAB PO PRN (09:49)
[2023-04-30] MEDS: LORazepam 0.5 MG TAB PO PRN (11:33)
[2023-04-30 11:43] LABS: Glucose,Whole Blood 267 mg/dL (70-110)
--- NOTE | 2023-04-30 14:14 | P.PN ---
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 She has evidence of metastatic disease to the right lower quadrant abdominal cavity and she was suppose to get surgical resection of her tumor but it starts bleeding and found to flow progressive disease so surgical intervention was canceled. Once she came to [place] she fell doing better and follow-up with her doctor who prescribed her CAT scan of the chest showing more pulmonary metastatic disease. After that she started feeling more weak and lethargic, this morning she was currently able to get out of bed so she came to emergency room. She denies any chest pain or dyspnea or coughing. She denies dysuria or urgency, she denies abdominal pain vomiting or diarrhea, she has mild right lower quadrant abdominal pain but this mostly related to her metastatic disease to her colon As per patient Patient is nonsmoker, she denies alcohol or illicit drugs Patient is a known diabetic and she was using insulin pump but it was not working lately so she took it off 04/27/2023 Patient awake alert, she feels little better today She denies urinary or respiratory symptoms. She is complaining of from nausea and generalized weakness. Also she has some tenderness in the right lower quadrant, right upper quadrant and epigastric area. It is mild with no guarding, no diarrhea. She is hemodynamically stable but she still running fever 101.3 today. Vitals and labs reviewed, glucose elevated. We will add Levemir 10 units today. Remains on normal saline 100 mL, Levaquin 500 mg, Cardizem drip was stopped and metoprolol dose increased to 50 mg. No need for anticoagulation per cardiology's were atrial fibrillation because of risk of GI bleed given her history of the same 04/28/2023 Patient reports improvement today, she has this right-sided abdominal pain and tenderness, his fever is coming down but not completely resolved. WBC is back t o normal however production is elevated to 6.1. Urine culture is growing gram-negative bacilli and CT of the chest showing Left lower lobe pulmonary nodule about 6.2 mm. Sugars still elevated, we added 8 units and currently she is going to be on Levemir 18 units daily. Her hemoglobin A1c is not bad at 7.4%. Echocardiogram showed ejection fraction of 50-55%. She remains on cefepime and Flagyl She was complaining of from some mild headache that is not resolved with Tylenol, Fioricet is added. We'll keep close monitoring 04/29 As needed Ativan Daily ordered, NO new complaints 04/30 Slept well with additional dose of ativan, abdominal pain better Objective - Vital Signs Vital signs: Vital Signs Temp 98.6 F 04/30/23 12:00 Pulse 93 04/30/23 12:00 Resp 16 04/30/23 12:00 BP 123/70 04/30/23 12:00 Pulse Ox 97 04/30/23 12:00 FiO2 Intake & Output 04/29/23 04/30/23 04/30/23 18:59 06:59 18:59 Intake Total 1440 240 Output Total 700 400 Balance 740 -400 240 Intake: Oral 1440 240 Output: Urine 700 400 Other: Voiding Method Bedside Commode Bedside Commode Bedside Commode # Voids 1 1 # Bowel Movements 1 - Exam GENERAL: The patient is alert and oriented x3, not in any acute distress. Obese HEENT: Pupils are round and equally reacting to light. EOMI. No scleral icterus. No conjunctival pallor. Normocephalic, atraumatic. No pharyngeal erythema. No thyromegaly. CARDIOVASCULAR: S1 and S2 present. No murmurs, rubs, or gallops. PULMONARY: Chest is clear to auscultation, no wheezing or crackles. ABDOMEN: Soft, right-sided tenderness Mass palpable , no rebound tenderness, no guarding, nondistended, normoactive bowel sounds. No palpable organomegaly. MUSCULOSKELETAL: No joint swelling or deformity. EXTREMITIES: No cyanosis, clubbing, or pedal edema. NEUROLOGICAL: Gross neurological examination did not reveal any focal deficits. SKIN: No rashes. no petechiae. - Labs CBC & Chem 7: 04/30/23 06:20 04/30/23 06:20 Labs: Abnormal Lab Results - Last 24 Hours (Table) 04/29/23 04/29/23 04/30/23 Range/Units 16:21 19:59 05:58 RBC (3.80-5.40) m/uL Hgb (11.4-16.0) gm/dL Hct (34.0-46.0) % MCHC (31.0-37.0) g/dL Plt Count (150-450) k/uL Sodium (137-145) mmol/L BUN (7-17) mg/dL Glucose (74-99) mg/dL POC Glucose (mg/dL) 266 H 294 H 286 H (70-110) mg/dL 04/30/23 04/30/23 04/30/23 Range/Units 06:20 06:20 11:41 RBC 3.31 L (3.80-5.40) m/uL Hgb 9.7 L (11.4-16.0) gm/dL Hct 31.8 L (34.0-46.0) % MCHC 30.5 L (31.0-37.0) g/dL Plt Count 145 L (150-450) k/uL Sodium 133 L (137-145) mmol/L BUN 24 H (7-17) mg/dL Glucose 277 H (74-99) mg/dL POC Glucose (mg/dL) 267 H (70-110) mg/dL Microbiology - Last 24 Hours (Table) 04/26/23 19:14 Blood Culture - Preliminary Blood 04/26/23 11:26 Urine Culture - Final Urine,Voided Klebsiella pneumoniae Assessment and Plan Assessment: * Atrial fibrillation with RVR, new onset * Sepsis, Source Intraabdominal * Metastatic uterine cancer, status post hysterectomy, status post chemotherapy. it looks end-stage with metastasis to the intra-abdominal cavity and probably Lung (as per patient) * Acute kidney injury RESOLVED * Diabetes mellitus with hyperglycemia, present on admission * Obesity Plan: Cardiology consulted, On Metoprolol Continue with intravenous hydration On Rocephin and Flagyl >> ID Following Hematology/oncology consulted Continue with Levemir , novolog Labs and medication were reviewed. DVT and GI prophylaxis. DVT prophylaxis: Subcutaneous heparin GI Prophylaxis: Pepcid
--- NOTE | 2023-04-30 15:52 | P.PN ---
Subjective Progress Note Date: 04/30/23 This is a 73-year-old female with a past medical history significant for breast cancer, uterine cancer with metastasis, atrial fibrillation, nonsustained ventricular tachycardia, hypertension, diabetes, and hyperlipidemia. Patient follows in the office with Dr. Motta but has not been seen in the office since November 2021 as she has been living out in [place]. We have been asked to see the patient in consultation for atrial fibrillation. Patient examined at the bedside. Patient presented to the hospital for chief complaint of generalized weakness. She also reports that she rolled out of bed the other day but did not sustain any injuries. She denies any chest pain or pressure. She denies any shortness of breath. She denies any palpitations. EKG on admission revealed atrophic relation with RVR. She was started on IV Cardizem. This morning telemetry reveals sinus mechanism with PACs. The patient was previously on Xarelto. However she states that she developed bleeding and anemia with a hemoglobin of 7 which they thought may be related to her metastatic disease and her anticoagulation was discontinued. The patient also reports she was having nonsustained ventricular tachycardia in October 2022 while in [place]. She states that she underwent a stress test which was negative to her knowledge. She denies having a cardiac catheterization. * EKG reveals atrial flutter ablation with RVR * Chest xray negative for acute process * Patient underwent CT abdomen and pelvis on 04/25/2023 revealing enlarging bilobed metastatic lesion anterior right pararenal space with probable invasion of the hepatic serosa. There is no mass effect upon the descending colon with serosal invasion difficult to exclude. New 6 mm pulmonary nodule at the left lung base. * Echocardiogram revealed ejection fraction 50-55% with mild AR and mild MR. * Patient underwent [place] loop recorder in March 2021 04/29/2023 Is seen and examined resting comfortably in bed. He continues to have some rare episodes of dizziness/lightheadedness. Denies any chest pain or pressure. She denies any shortness of breath. She remains in atrial fibrillation with relatively well-controlled ventricular response. 04/30/2023 the patient was seen and examined resting in bed. Her dizziness is better. H eart rates are reasonably well controlled. Denies any chest discomfort or shortness of breath. Objective - Vital Signs Vital signs: Vital Signs Temp 98.6 F 04/30/23 12:00 Pulse 93 04/30/23 12:00 Resp 16 04/30/23 12:00 BP 123/70 04/30/23 12:00 Pulse Ox 97 04/30/23 12:00 FiO2 Intake & Output 04/29/23 04/30/23 04/30/23 18:59 06:59 18:59 Intake Total 1440 240 Output Total 700 400 Balance 740 -400 240 Intake: Oral 1440 240 Output: Urine 700 400 Other: Voiding Method Bedside Commode Bedside Commode Bedside Commode # Voids 1 2 # Bowel Movements 1 - Exam PHYSICAL EXAM: VITAL SIGNS: Reviewed. GENERAL: Well-developed in no acute distress. HEENT: Head is normocephalic. Pupils are equal, round. Sclerae anicteric. Mucous membranes of the mouth are moist. Neck supple. No JVD or thyromegaly LUNGS: Respirations even and unlabored. Lungs essentially clear to auscultation bilaterally. HEART: Irregular rate and rhythm. S1 and S2 heard. ABDOMEN: Soft. Nondistended. Nontender. EXTREMITIES: Normal range of motion. No clubbing or cyanosis. Peripheral pulses intact. No lower extremity edema NEUROLOGIC: Awake and alert. Oriented x 3. - Labs CBC & Chem 7: 04/30/23 06:20 04/30/23 06:20 Labs: Abnormal Lab Results - Last 24 Hours (Table) 04/29/23 04/29/23 04/30/23 Range/Units 16:21 19:59 05:58 RBC (3.80-5.40) m/uL Hgb (11.4-16.0) gm/dL Hct (34.0-46.0) % MCHC (31.0-37.0) g/dL Plt Count (150-450) k/uL Sodium (137-145) mmol/L BUN (7-17) mg/dL Glucose (74-99) mg/dL POC Glucose (mg/dL) 266 H 294 H 286 H (70-110) mg/dL 04/30/23 04/30/23 04/30/23 Range/Units 06:20 06:20 11:41 RBC 3.31 L (3.80-5.40) m/uL Hgb 9.7 L (11.4-16.0) gm/dL Hct 31.8 L (34.0-46.0) % MCHC 30.5 L (31.0-37.0) g/dL Plt Count 145 L (150-450) k/uL Sodium 133 L (137-145) mmol/L BUN 24 H (7-17) mg/dL Glucose 277 H (74-99) mg/dL POC Glucose (mg/dL) 267 H (70-110) mg/dL Microbiology - Last 24 Hours (Table) 04/26/23 19:14 Blood Culture - Preliminary Blood 04/26/23 11:26 Urine Culture - Final Urine,Voided Klebsiella pneumoniae Assessment and Plan Assessment: Generalized weakness S/P fall from bed with no apparent injuries Fever Atrial fibrillation with RVR, unknown if paroxysmal or persistent History of uterine cancer with metastasis to intra-abdominal cavity and suspected lung with pulmonary nodules noted on recent CT Recent history of bleeding and anemia, thought to be secondary to above History of breast cancer History of nonsustained ventricular tachycardia History of loop recorder implantation Hypertension Hyperlipidemia Diabetes Plan: From cardiology's perspective medications were reviewed and we will continue the same. Continue to avoid anticoagulation secondary to patient's history of significant bleeding and anemia. Unfortunately patient's prognosis is poor related to her underlying malignancy. From our standpoint the patient may be discharged home when okay by primary. BILINGUAL ACCOUNT MANAGER note has been reviewed, I agree with a documented findings and plan of care. Patient was seen and examined.
[2023-04-30 16:09] LABS: Glucose,Whole Blood 318 mg/dL (70-110)
[2023-04-30 20:07] LABS: Glucose,Whole Blood 291 mg/dL (70-110)
[2023-04-30] MEDS: LORazepam 0.5 MG TAB PO SCH (20:22)
[2023-04-30] MEDS: ATORVASTATIN 20 MG TAB PO SCH (20:22)
--- NOTE | 2023-04-30 22:21 | P.PN ---
Subjective Progress Note Date: 04/30/23 Principal diagnosis: Sepsis possible abdominal source Patient is a 73-year-old female with a past medical history significant for metastatic OVARIAN cancer status post surgery and chemoradiation therapy, with recent progression of her disease and a CAT scan done in the outpatient setting on 04/25/2023 did shows invasion of the serosa of the liver as well as COLON Presented to the hospital with weakness fall noticed to be febrile On today's evaluation that is 04/30/2023, patient remains to be afebrile, patient is breathing comfortably on room air, The pt denies any chest pain shortness of breath occasional cough , denies N/V or abdominal pain and no diarrhea Objective - Vital Signs Vital signs: Vital Signs Temp 98.6 F 04/30/23 08:00 Pulse 106 H 04/30/23 08:00 Resp 18 04/30/23 08:00 BP 131/75 04/30/23 08:00 Pulse Ox 97 04/30/23 08:00 FiO2 Intake & Output 04/29/23 04/30/23 04/30/23 18:59 06:59 18:59 Intake Total 1440 240 Output Total 700 400 Balance 740 -400 240 Intake: Oral 1440 240 Output: Urine 700 400 Other: Voiding Method Bedside Commode Bedside Commode Bedside Commode # Voids 1 1 # Bowel Movements 1 - Exam GENERAL DESCRIPTION: An elderly female lying in bed in no distress RESPIRATORY SYSTEM: Unlabored breathing , decreased breath sounds at bases HEART: S1 S2 regular rate and rhythm , ABDOMEN: Soft , no tenderness EXTREMITIES: No edema feet - Labs CBC & Chem 7: 04/30/23 06:20 04/30/23 06:20 Labs: Abnormal Lab Results - Last 24 Hours (Table) 04/29/23 04/29/23 04/30/23 Range/Units 16:21 19:59 05:58 RBC (3.80-5.40) m/uL Hgb (11.4-16.0) gm/dL Hct (34.0-46.0) % MCHC (31.0-37.0) g/dL Plt Count (150-450) k/uL Sodium (137-145) mmol/L BUN (7-17) mg/dL Glucose (74-99) mg/dL POC Glucose (mg/dL) 266 H 294 H 286 H (70-110) mg/dL 04/30/23 04/30/23 04/30/23 Range/Units 06:20 06:20 11:41 RBC 3.31 L (3.80-5.40) m/uL Hgb 9.7 L (11.4-16.0) gm/dL Hct 31.8 L (34.0-46.0) % MCHC 30.5 L (31.0-37.0) g/dL Plt Count 145 L (150-450) k/uL Sodium 133 L (137-145) mmol/L BUN 24 H (7-17) mg/dL Glucose 277 H (74-99) mg/dL POC Glucose (mg/dL) 267 H (70-110) mg/dL Microbiology - Last 24 Hours (Table) 04/26/23 19:14 Blood Culture - Preliminary Blood 04/26/23 11:26 Urine Culture - Final Urine,Voided Klebsiella pneumoniae Assessment and Plan (1) Sepsis Current Visit: Yes Status: Acute Code(s): A41.9 - SEPSIS, UNSPECIFIED ORGANISM SNOMED Code(s): 92021505 Plan: 1patient to the hospital with sepsis in this patient who did have a fever elevated white count source likely abdominal in this patient who did have a history of metastatic uterine cancer with a recent CAT scan completed on 04/25/2023 did shows invasion of the hepatic serosa as well as ascending colon and concern for possible colitis and will need to cover for the enteric gram-negative both aerobes and anaerobes vs UTI, however pt donot have any urinary symptoms 2patient with a history of penicillin allergy rash no history of anaphylaxis 3Pt urine grew Klebsiella which is a sensitive pathogen , Antibiotics switched to Rocephin and will see clinical response multiple question of sister answered over the phone Time with Patient: Less than 30
[2023-05-01] MEDS: ACETAMINOPHEN TAB 325 MG TAB PO PRN ×2 (02:30→12:16)
[2023-05-01 06:05] LABS: Glucose,Whole Blood 233 mg/dL (70-110)
[2023-05-01] MEDS: INSULIN ASPART (NovoLOG) 100 UNIT/ML VIAL SQ SCH ×4 (06:21→20:05)
[2023-05-01] MEDS: INSULIN DETEMIR (LEVEMIR) 100 UNIT/ML SYR SQ SCH (06:21)
[2023-05-01] MEDS: FERROUS SULFATE 325 MG TAB PO SCH (08:26)
[2023-05-01] MEDS: FAMOTIDINE 20 MG/2 ML VIAL IV SCH (08:26)
[2023-05-01] MEDS: PREGABALIN 75 MG CAP PO SCH ×2 (08:26→20:05)
[2023-05-01] MEDS: METOPROLOL SUCCINATE (ER) 50 MG TAB.ER.24H PO SCH ×2 (08:26→20:05)
[2023-05-01] MEDS: HEPARIN SODIUM,PORCINE/PF 5,000 UNIT/0.5 ML SYRINGE SQ SCH ×3 (08:26→23:15)
[2023-05-01] MEDS: metroNIDAZOLE-NS PMX 500 MG in SALINE 1 100ML.BAG IVPB SCH ×3 (08:27→23:15)
[2023-05-01] MEDS: DULoxetine HCL 20 MG CAPSULE.DR PO SCH (08:27)
[2023-05-01] MEDS: SODIUM CHLORIDE 0.9% 1,000 ML IV SCH (08:28)
[2023-05-01 09:55] LABS: HCT 31.1 % (34.0-46.0); HGB 9.6 gm/dL (11.4-16.0); Hypochromasia Marked; MCH 29.1 pg (25.0-35.0); MCV 94.1 fL (80.0-100.0); Mean Platelet Volume 10.6; Platelet Count 155 k/uL (150-450); RDW 14.7 % (11.5-15.5); WBC 5.7 k/uL (3.8-10.6)
[2023-05-01 10:06] LABS: African American GFR (CKD) 81 (>60 ml/min/1.73 sqM); Anion Gap 9 mmol/L; Blood Urea Nitrogen 20 mg/dL (7-17); Calcium 8.5 mg/dL (8.4-10.2); Carbon Dioxide 28 mmol/L (22-30); Chloride 99 mmol/L (98-107); Glucose 225 mg/dL (74-99); Non-African American GFR(CKD) 70 (>60 ml/min/1.73 sqM); Potassium 4.1 mmol/L (3.5-5.1); Sodium 136 mmol/L (137-145)
[2023-05-01 11:14] LABS: C Reactive Protein 14.2 mg/dL (<1.0)
[2023-05-01 11:49] LABS: Glucose,Whole Blood 243 mg/dL (70-110)
--- NOTE | 2023-05-01 12:11 | P.PN ---
Subjective HISTORY OF PRESENTING ILLNESS Progress Note Date: 04/30/23 This is a 73-year-old female with a past medical history significant for breast cancer, uterine cancer with metastasis, atrial fibrillation, nonsustained ventricular tachycardia, hypertension, diabetes, and hyperlipidemia. Patient follows in the office with Dr. Motta but has not been seen in the office since November 2021 as she has been living out in [place]. We have been asked to see the patient in consultation for atrial fibrillation. Patient examined at the bedside. Patient presented to the hospital for chief complaint of generalized weakness. She also reports that she rolled out of bed the other day but did not sustain any injuries. She denies any chest pain or pressure. She denies any shortness of breath. She denies any palpitations. EKG on admission revealed atrophic relation with RVR. She was started on IV Cardizem. This morning telemetry reveals sinus mechanism with PACs. The patient was previously on Xarelto. However she states that she developed bleeding and anemia with a hemoglobin of 7 which they thought may be related to her metastatic disease and her anticoagulation was discontinued. The patient also reports she was having nonsustained ventricular tachycardia in October 2022 while in [place]. She states that she underwent a stress test which was negative to her knowledge. She denies having a cardiac catheterization. EKG reveals atrial flutter ablation with RVR Chest xray negative for acute process Patient underwent CT abdomen and pelvis on 04/25/2023 revealing enlarging bilobed metastatic lesion anterior right pararenal space with probable invasion of the hepatic serosa. There is no mass effect upon the descending colon with serosal invasion difficult to exclude. New 6 mm pulmonary nodule at the left lung base. Echocardiogram revealed ejection fraction 50-55% with mild AR and mild MR. Patient underwent [place] loop recorder in March 2021 04/29/2023 Is seen and examined resting comfortably in bed. He continues to have some rare episodes of dizziness/lightheadedness. Denies any chest pain or pressure. She denies any shortness of breath. She remains in atrial fibrillation with relatively well-controlled ventricular response. 04/30/2023 the patient was seen and examined resting in bed. Her dizziness is better. Heart rates are reasonably well controlled. Denies any chest discomfort or shortness of breath. 05/01 Patient seen and examined. Patient with better controlled heart rates in the 90s to low 100s. Patient's sister who is a nurse is concerned with lower blood pressures with systolic 106 and 100 about hold parameters. We discussed holding up systolics less than 100 however would like to minimize amount of holding medications. She has not been lightheaded or dizzy. PHYSICAL EXAMINATION Vital signs reviewed. CONSTITUTIONAL: No apparent distress. HEENT: Head is normocephalic. Pupils are equal, round. Sclerae anicteric. Mucous membranes of the mouth are moist. No JVD. No carotid bruit. CHEST EXAMINATION: Lungs are clear to auscultation. No chest wall tenderness is noted on palpation or with deep breathing. HEART EXAMINATION: Regular rate and rhythm. S1, S2 heard. No murmurs, gallops or rub. ABDOMEN: Soft, nontender. Positive bowel sounds. EXTREMITIES: 2+ peripheral pulses, no lower extremity edema and no calf tenderness. NEUROLOGIC EXAMINATION: Patient is awake, alert and oriented x3. Assessment: Generalized weakness S/P fall from bed with no apparent injuries Fever Atrial fibrillation with RVR, unknown if paroxysmal or persistent History of uterine cancer with metastasis to intra-abdominal cavity and suspected lung with pulmonary nodules noted on recent CT Recent history of bleeding and anemia, thought to be secondary to above History of breast cancer History of nonsustained ventricular tachycardia History of loop recorder implantation Hypertension Hyperlipidemia Diabetes Plan: Heart rates fairly well-controlled on current regimen. Mild permissive tachycar yumi with exertion. Heart rates mainly in the 90s to low 100s. No anticoagulation given bleeding and anemia. Continue with supportive care. No further recommendations from cardiology standpoint. Appears stable for DC from cardiology standpoint. Objective - Vital Signs Vital signs: Vital Signs Temp 98.0 F 05/01/23 08:24 Pulse 99 05/01/23 08:24 Resp 16 05/01/23 08:24 BP 129/80 05/01/23 08:24 Pulse Ox 94 L 05/01/23 08:24 FiO2 Intake & Output 04/30/23 05/01/23 05/01/23 18:59 06:59 18:59 Intake Total 240 Output Total 200 Balance 240 -200 Intake: Oral 240 Output: Urine 200 Other: Voiding Method Bedside Commode Bedside Commode # Voids 1 - Labs CBC & Chem 7: 05/01/23 08:32 05/01/23 08:32 Labs: Abnormal Lab Results - Last 24 Hours (Table) 04/30/23 04/30/23 05/01/23 Range/Units 16:07 20:05 06:04 RBC (3.80-5.40) m/uL Hgb (11.4-16.0) gm/dL Hct (34.0-46.0) % Sodium (137-145) mmol/L BUN (7-17) mg/dL Glucose (74-99) mg/dL POC Glucose (mg/dL) 318 H 291 H 233 H (70-110) mg/dL C-Reactive Protein (<1.0) mg/dL 05/01/23 05/01/23 05/01/23 Range/Units 08:32 08:32 11:37 RBC 3.30 L (3.80-5.40) m/uL Hgb 9.6 L (11.4-16.0) gm/dL Hct 31.1 L (34.0-46.0) % Sodium 136 L (137-145) mmol/L BUN 20 H (7-17) mg/dL Glucose 225 H (74-99) mg/dL POC Glucose (mg/dL) 243 H (70-110) mg/dL C-Reactive Protein 14.2 H (<1.0) mg/dL Microbiology - Last 24 Hours (Table) 04/26/23 19:14 Blood Culture - Preliminary Blood
--- NOTE | 2023-05-01 12:15 | P.PN ---
Subjective Progress Note Date: 05/01/23 Principal diagnosis: Metastatic uterine cancer. Admitted for severe weakness In follow-up today patient is not reporting any significant improvement in her generalized weakness. She is still able to tolerate oral intake without nausea or vomiting, complains of some mild abdominal distention, her abdominal discomfort is on the right side of her abdomen, she reports recent bowel movement, normal consistency for her, denies any urinary symptoms. Objective - Vital Signs Vital signs: Vital Signs Temp 98.0 F 05/01/23 08:24 Pulse 99 05/01/23 08:24 Resp 16 05/01/23 08:24 BP 129/80 05/01/23 08:24 Pulse Ox 94 L 05/01/23 08:24 FiO2 Intake & Output 04/30/23 05/01/23 05/01/23 18:59 06:59 18:59 Intake Total 240 Output Total 200 Balance 240 -200 Intake: Oral 240 Output: Urine 200 Other: Voiding Method Bedside Commode Bedside Commode # Voids 1 - Constitutional General appearance: Present: cooperative, no acute distress, obese - EENT Eyes: Present: anicteric sclerae, EOMI ENT: Present: hearing grossly normal - Respiratory Details: Respirations even and unlabored at rest - Cardiovascular Rhythm: regular - Peripheral edema leg Peripheral Edema: bilateral: None - Gastrointestinal General gastrointestinal: Present: hepatomegaly, soft, tenderness (Localized to the right side of the abdomen) - Integumentary Integumentary: Present: normal - Neurologic Neurologic: Present: CNII-XII intact (Grossly) - Musculoskeletal Musculoskeletal: Present: generalized weakness, strength equal bilaterally - Psychiatric Psychiatric: Present: A&O x's 3, appropriate affect, intact judgment & insight - Labs CBC & Chem 7: 05/01/23 08:32 05/01/23 08:32 Labs: Abnormal Lab Results - Last 24 Hours (Table) 04/30/23 04/30/23 05/01/23 Range/Units 16:07 20:05 06:04 RBC (3.80-5.40) m/uL Hgb (11.4-16.0) gm/dL Hct (34.0-46.0) % Sodium (137-145) mmol/L BUN (7-17) mg/dL Glucose (74-99) mg/dL POC Glucose (mg/dL) 318 H 291 H 233 H (70-110) mg/dL C-Reactive Protein (<1.0) mg/dL 05/01/23 05/01/23 05/01/23 Range/Units 08:32 08:32 11:37 RBC 3.30 L (3.80-5.40) m/uL Hgb 9.6 L (11.4-16.0) gm/dL Hct 31.1 L (34.0-46.0) % Sodium 136 L (137-145) mmol/L BUN 20 H (7-17) mg/dL Glucose 225 H (74-99) mg/dL POC Glucose (mg/dL) 243 H (70-110) mg/dL C-Reactive Protein 14.2 H (<1.0) mg/dL Microbiology - Last 24 Hours (Table) 04/26/23 19:14 Blood Culture - Preliminary Blood - Imaging and Cardiology CT scan - chest: report reviewed (CT of the chest with contrast showing a new noncalcified pulmonary nodule in the left lower lobe, 6.2 mm, this was compared to a CT from 02/07/22. No pathologic LAD in the mediastinum.) Assessment and Plan (1) Uterine carcinoma Current Visit: Yes Status: Acute Priority: High Code(s): C55 - MALIGNANT NEOPLASM OF UTERUS, PART UNSPECIFIED SNOMED Code(s): 138895122 (2) Metastatic cancer Current Visit: Yes Status: Acute Priority: High Code(s): C79.9 - SECONDARY MALIGNANT NEOPLASM OF UNSPECIFIED SITE SNOMED Code(s): 090241498 Plan: Metastatic uterine carcinoma -Pending reports from Dr. Clark in [place]. -A 6.2 mm left lower lobe pulmonary nodule, maybe metastatic disease. Thankfully, patient is not having any respiratory symptoms. -Patient reported that she was feeling better for a period of time, after being told on March 30 that she only had about 4 weeks to live. This is changed. Over the past week and a half she has not been feeling better. She is denying any terrible pain or sequela of uterine cancer-constipation, nausea, vomiting, swelling in the legs. Patient understands her malignancy is not curable only treatable for some time. She is just curious if there are any other treatment options. After review of her previous treatment and medical records, we'll see if there are any other potential treatment options available. -Patient is also very open to hospice if, there are no treatment options available that she is interested in. -Plan for follow-up once patient is discharged from the hospital Klebsiella pneumoniae urinary tract infection -Patient is on antibiotics for the same -Possibly a cause for patient's weakness. We will see how she progresses with antibiotics
--- NOTE | 2023-05-01 12:24 | P.PN ---
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 She has evidence of metastatic disease to the right lower quadrant abdominal cavity and she was suppose to get surgical resection of her tumor but it starts bleeding and found to flow progressive disease so surgical intervention was canceled. Once she came to [place] she fell doing better and follow-up with her doctor who prescribed her CAT scan of the chest showing more pulmonary metastatic disease. After that she started feeling more weak and lethargic, this morning she was currently able to get out of bed so she came to emergency room. She denies any chest pain or dyspnea or coughing. She denies dysuria or urgency, she denies abdominal pain vomiting or diarrhea, she has mild right lower quadrant abdominal pain but this mostly related to her metastatic disease to her colon As per patient Patient is nonsmoker, she denies alcohol or illicit drugs Patient is a known diabetic and she was using insulin pump but it was not working lately so she took it off 04/27/2023 Patient awake alert, she feels little better today She denies urinary or respiratory symptoms. She is complaining of from nausea and generalized weakness. Also she has some tenderness in the right lower quadrant, right upper quadrant and epigastric area. It is mild with no guarding, no diarrhea. She is hemodynamically stable but she still running fever 101.3 today. Vitals and labs reviewed, glucose elevated. We will add Levemir 10 units today. Remains on normal saline 100 mL, Levaquin 500 mg, Cardizem drip was stopped and metoprolol dose increased to 50 mg. No need for anticoagulation per cardiology's were atrial fibrillation because of risk of GI bleed given her history of the same 04/28/2023 Patient reports improvement today, she has this right-sided abdominal pain and tenderness, his fever is coming down but not completely resolved. WBC is back t o normal however production is elevated to 6.1. Urine culture is growing gram-negative bacilli and CT of the chest showing Left lower lobe pulmonary nodule about 6.2 mm. Sugars still elevated, we added 8 units and currently she is going to be on Levemir 18 units daily. Her hemoglobin A1c is not bad at 7.4%. Echocardiogram showed ejection fraction of 50-55%. She remains on cefepime and Flagyl She was complaining of from some mild headache that is not resolved with Tylenol, Fioricet is added. We'll keep close monitoring 04/29 As needed Ativan Daily ordered, NO new complaints 04/30 Slept well with additional dose of ativan, abdominal pain better 05/01 Care plan discussed with infectious disease as well, continue IV antibiotics including Rocephin and Flagyl while inpatient upon discharge were transitioned to Ceftin Inflammatory markers improving Objective - Vital Signs Vital signs: Vital Signs Temp 97.3 F L 05/01/23 12:14 Pulse 101 H 05/01/23 12:14 Resp 16 05/01/23 12:14 BP 133/81 05/01/23 12:14 Pulse Ox 96 05/01/23 12:14 FiO2 Intake & Output 04/30/23 05/01/23 05/01/23 18:59 06:59 18:59 Intake Total 240 Output Total 200 Balance 240 -200 Intake: Oral 240 Output: Urine 200 Other: Voiding Method Bedside Commode Bedside Commode # Voids 1 - Exam GENERAL: The patient is alert and oriented x3, not in any acute distress. Obese HEENT: Pupils are round and equally reacting to light. EOMI. No scleral icterus. No conjunctival pallor. Normocephalic, atraumatic. No pharyngeal erythema. No thyromegaly. CARDIOVASCULAR: S1 and S2 present. No murmurs, rubs, or gallops. PULMONARY: Chest is clear to auscultation, no wheezing or crackles. ABDOMEN: Soft, right-sided tenderness Mass palpable , no rebound tenderness, no guarding, nondistended, normoactive bowel sounds. No palpable organomegaly. MUSCULOSKELETAL: No joint swelling or deformity. EXTREMITIES: No cyanosis, clubbing, or pedal edema. NEUROLOGICAL: Gross neurological examination did not reveal any focal deficits. SKIN: No rashes. no petechiae. - Labs CBC & Chem 7: 05/01/23 08:32 05/01/23 08:32 Labs: Abnormal Lab Results - Last 24 Hours (Table) 04/30/23 04/30/23 05/01/23 Range/Units 16:07 20:05 06:04 RBC (3.80-5.40) m/uL Hgb (11.4-16.0) gm/dL Hct (34.0-46.0) % Sodium (137-145) mmol/L BUN (7-17) mg/dL Glucose (74-99) mg/dL POC Glucose (mg/dL) 318 H 291 H 233 H (70-110) mg/dL C-Reactive Protein (<1.0) mg/dL 05/01/23 05/01/23 05/01/23 Range/Units 08:32 08:32 11:37 RBC 3.30 L (3.80-5.40) m/uL Hgb 9.6 L (11.4-16.0) gm/dL Hct 31.1 L (34.0-46.0) % Sodium 136 L (137-145) mmol/L BUN 20 H (7-17) mg/dL Glucose 225 H (74-99) mg/dL POC Glucose (mg/dL) 243 H (70-110) mg/dL C-Reactive Protein 14.2 H (<1.0) mg/dL Microbiology - Last 24 Hours (Table) 04/26/23 19:14 Blood Culture - Preliminary Blood Assessment and Plan Assessment: * Atrial fibrillation with RVR, new onset * Sepsis, Source Intraabdominal * Klebsiella pneumonia urinary tract infection * Metastatic uterine cancer, status post hysterectomy, status post chemotherapy. it looks end-stage with metastasis to the intra-abdominal cavity and probably Lung * Acute kidney injury RESOLVED * Diabetes mellitus with hyperglycemia, present on admission * Obesity Plan: Cardiology consulted, On Metoprolol 50 mg twice a day, not on anticoagulation due to high risk of bleeding Continue with intravenous hydration On Rocephin and Flagyl >> ID Following Hematology/oncology consulted, follow-up with oncology outpatient Continue with Levemir , novolog Labs and medication were reviewed. DVT and GI prophylaxis. DVT prophylaxis: Subcutaneous heparin GI Prophylaxis: Pepcid
[2023-05-01] MEDS ORDERED: ONDANSETRON 4 MG/2 ML VIAL IVP PRN (12:53)
[2023-05-01 16:42] LABS: Glucose,Whole Blood 265 mg/dL (70-110)
[2023-05-01 20:01] LABS: Glucose,Whole Blood 302 mg/dL (70-110)
[2023-05-01] MEDS: LORazepam 0.5 MG TAB PO SCH (20:05)
[2023-05-01] MEDS: ATORVASTATIN 20 MG TAB PO SCH (20:05)
[2023-05-02 06:01] LABS: Glucose,Whole Blood 205 mg/dL (70-110)
[2023-05-02] MEDS: INSULIN ASPART (NovoLOG) 100 UNIT/ML VIAL SQ SCH ×4 (06:08→20:02)
[2023-05-02] MEDS: INSULIN DETEMIR (LEVEMIR) 100 UNIT/ML SYR SQ SCH (06:08)
[2023-05-02] MEDS: METOPROLOL SUCCINATE (ER) 50 MG TAB.ER.24H PO SCH ×2 (08:11→19:56)
[2023-05-02] MEDS: FAMOTIDINE 20 MG/2 ML VIAL IV SCH (08:11)
[2023-05-02] MEDS: HEPARIN SODIUM,PORCINE/PF 5,000 UNIT/0.5 ML SYRINGE SQ SCH ×3 (08:11→23:53)
[2023-05-02] MEDS: metroNIDAZOLE-NS PMX 500 MG in SALINE 1 100ML.BAG IVPB SCH ×3 (08:11→23:58)
[2023-05-02] MEDS: DULoxetine HCL 20 MG CAPSULE.DR PO SCH (08:11)
[2023-05-02] MEDS: PREGABALIN 75 MG CAP PO SCH ×2 (08:12→19:56)
[2023-05-02] MEDS: FERROUS SULFATE 325 MG TAB PO SCH (08:12)
[2023-05-02 10:46] LABS: HCT 32.1 % (34.0-46.0); HGB 9.9 gm/dL (11.4-16.0); Hypochromasia Marked; MCHC 30.8 g/dL (31.0-37.0); Mean Platelet Volume 10.3; Platelet Count 197 k/uL (150-450); RBC 3.42 m/uL (3.80-5.40); WBC 8.2 k/uL (3.8-10.6)
[2023-05-02 10:54] LABS: African American GFR (CKD) >90 (>60 ml/min/1.73 sqM); Anion Gap 10 mmol/L; Blood Urea Nitrogen 16 mg/dL (7-17); Calcium 8.5 mg/dL (8.4-10.2); Carbon Dioxide 25 mmol/L (22-30); Chloride 99 mmol/L (98-107); Glucose 180 mg/dL (74-99); Non-African American GFR(CKD) 88 (>60 ml/min/1.73 sqM); Potassium 4.2 mmol/L (3.5-5.1); Sodium 134 mmol/L (137-145)
[2023-05-02 11:36] LABS: Glucose,Whole Blood 206 mg/dL (70-110)
--- NOTE | 2023-05-02 12:16 | P.PN ---
Subjective Progress Note Date: 05/02/23 73 years old female past medical history of carcinoma of the uterus for more than 5 years, she was in [place] getting chemotherapy treatment, she is status post hysterectomy in 2019, and lately she was found to have more progressive metastatic disease therefore chemotherapy was stopped and told she has few weeks to live so she came back to [place]. She has evidence of metastatic disease to the right lower quadrant abdominal cavity and she was suppose to get surgical resection of her tumor but it starts bleeding and found to flow progressive disease so surgical intervention was canceled. Once she came to [place] she fell doing better and follow-up with her doctor who prescribed her CAT scan of the chest showing more pulmonary metastatic disease. After that she started feeling more weak and lethargic, this morning she was currently able to get out of bed so she came to emergency room. She denies any chest pain or dyspnea or coughing. She denies dysuria or urgency, she denies abdominal pain vomiting or diarrhea, she has mild right lower quadrant abdominal pain but this mostly related to her metastatic disease to her colon As per patient Patient is nonsmoker, she denies alcohol or illicit drugs Patient is a known diabetic and she was using insulin pump but it was not working lately so she took it off 04/27/2023 Patient awake alert, she feels little better today She denies urinary or respiratory symptoms. She is complaining of from nausea and generalized weakness. Also she has some tenderness in the right lower quadrant, right upper quadrant and epigastric area. It is mild with no guarding, no diarrhea. She is hemodynamically stable but she still running fever 101.3 today. Vitals and labs reviewed, glucose elevated. We will add Levemir 10 units today. Remains on normal saline 100 mL, Levaquin 500 mg, Cardizem drip was stopped and metoprolol dose increased to 50 mg. No need for anticoagulation per cardiology's were atrial fibrillation because of risk of GI bleed given her history of the same 04/28/2023 Patient reports improvement today, she has this right-sided abdominal pain and tenderness, his fever is coming down but not completely resolved. WBC is back t o normal however production is elevated to 6.1. Urine culture is growing gram-negative bacilli and CT of the chest showing Left lower lobe pulmonary nodule about 6.2 mm. Sugars still elevated, we added 8 units and currently she is going to be on Levemir 18 units daily. Her hemoglobin A1c is not bad at 7.4%. Echocardiogram showed ejection fraction of 50-55%. She remains on cefepime and Flagyl She was complaining of from some mild headache that is not resolved with Tylenol, Fioricet is added. We'll keep close monitoring 04/29 As needed Ativan Daily ordered, NO new complaints 04/30 Slept well with additional dose of ativan, abdominal pain better 05/01 Care plan discussed with infectious disease as well, continue IV antibiotics including Rocephin and Flagyl while inpatient upon discharge were transitioned to Ceftin Inflammatory markers improving 05/02 Patient continued to complain of abdominal pain, goals of care discussed with patient patient pain medication to increase and will be monitored another 24 hours expected discharge home within the next 24 hours Objective - Vital Signs Vital signs: Vital Signs Temp 98.2 F 05/02/23 11:59 Pulse 93 05/02/23 11:59 Resp 16 05/02/23 11:59 BP 141/74 05/02/23 11:59 Pulse Ox 97 05/02/23 11:59 FiO2 Intake & Output 05/01/23 05/02/23 05/02/23 18:59 06:59 18:59 Intake Total 476 240 Balance 476 240 Intake: Oral 476 240 Other: Voiding Method Toilet Toilet Toilet Bedside Commode Bedside Commode Bedside Commode Diaper # Voids 1 2 # Bowel Movements 1 - Exam GENERAL: The patient is alert and oriented x3, not in any acute distress. Obese HEENT: Pupils are round and equally reacting to light. EOMI. No scleral icterus. No conjunctival pallor. Normocephalic, atraumatic. No pharyngeal erythema. No thyromegaly. CARDIOVASCULAR: S1 and S2 present. No murmurs, rubs, or gallops. PULMONARY: Chest is clear to auscultation, no wheezing or crackles. ABDOMEN: Soft, right-sided tenderness Mass palpable , no rebound tenderness, no guarding, nondistended, normoactive bowel sounds. No palpable organomegaly. MUSCULOSKELETAL: No joint swelling or deformity. EXTREMITIES: No cyanosis, clubbing, or pedal edema. NEUROLOGICAL: Gross neurological examination did not reveal any focal deficits. SKIN: No rashes. no petechiae. - Labs CBC & Chem 7: 05/02/23 10:13 05/02/23 10:13 Labs: Abnormal Lab Results - Last 24 Hours (Table) 05/01/23 05/01/23 05/02/23 Range/Units 16:40 20:00 06:00 RBC (3.80-5.40) m/uL Hgb (11.4-16.0) gm/dL Hct (34.0-46.0) % MCHC (31.0-37.0) g/dL Sodium (137-145) mmol/L Glucose (74-99) mg/dL POC Glucose (mg/dL) 265 H 302 H 205 H (70-110) mg/dL 05/02/23 05/02/23 05/02/23 Range/Units 10:13 10:13 11:33 RBC 3.42 L (3.80-5.40) m/uL Hgb 9.9 L (11.4-16.0) gm/dL Hct 32.1 L (34.0-46.0) % MCHC 30.8 L (31.0-37.0) g/dL Sodium 134 L (137-145) mmol/L Glucose 180 H (74-99) mg/dL POC Glucose (mg/dL) 206 H (70-110) mg/dL Microbiology - Last 24 Hours (Table) 04/26/23 19:14 Blood Culture - Final Blood Assessment and Plan Assessment: * Atrial fibrillation with RVR, new onset * Sepsis, Source Intraabdominal * Klebsiella pneumonia urinary tract infection * Metastatic uterine cancer, status post hysterectomy, status post chemotherapy. it looks end-stage with metastasis to the intra-abdominal cavity and probably Lung * Acute kidney injury RESOLVED * Cancer associated pain * Diabetes mellitus with hyperglycemia, present on admission * Obesity Plan: Cardiology consulted, On Metoprolol 50 mg twice a day, not on anticoagulation due to high risk of bleeding Appropriately suspected with IV fluid On Rocephin and Flagyl >> ID Following Hematology/oncology consulted, follow-up with oncology outpatient Continue with jovany Oakes Labs and medication were reviewed. DVT and GI prophylaxis. DVT prophylaxis: Subcutaneous heparin GI Prophylaxis: Pepcid
[2023-05-02 12:18] VITALS: BMI 38.0
--- NOTE | 2023-05-02 14:40 | P.PN ---
Subjective Progress Note Date: 05/02/23 Principal diagnosis: Metastatic uterine cancer. Admitted for severe weakness In follow-up today patient is not reporting any significant improvement in her generalized weakness, She is reporting more right sided abdominal pain, she feels more distended. Denies nausea, vomiting, constipation. Objective - Vital Signs Vital signs: Vital Signs Temp 98.2 F 05/02/23 11:59 Pulse 93 05/02/23 11:59 Resp 16 05/02/23 11:59 BP 141/74 05/02/23 11:59 Pulse Ox 97 05/02/23 11:59 FiO2 Intake & Output 05/01/23 05/02/23 05/02/23 18:59 06:59 18:59 Intake Total 476 240 Balance 476 240 Intake: Oral 476 240 Other: Voiding Method Toilet Toilet Toilet Bedside Commode Bedside Commode Bedside Commode Diaper # Voids 1 2 # Bowel Movements 1 - Constitutional General appearance: Present: cooperative, mild distress, morbidly obese - EENT Eyes: Present: anicteric sclerae, EOMI ENT: Present: hearing grossly normal - Respiratory Details: Respirations even and nonlabored at rest - Cardiovascular Details: Skin warm and dry to the touch - Gastrointestinal Gastrointestinal Comment(s): Palpation of the right side of the abdomen reveals tenderness, the underlying tissue feels very firm to the touch General gastrointestinal: Present: distended, soft, tenderness - Integumentary Integumentary: Present: normal - Neurologic Neurologic: Present: CNII-XII intact - Musculoskeletal Musculoskeletal: Present: generalized weakness, strength equal bilaterally - Psychiatric Psychiatric: Present: A&O x's 3, appropriate affect, intact judgment & insight - Labs CBC & Chem 7: 05/02/23 10:13 05/02/23 10:13 Labs: Abnormal Lab Results - Last 24 Hours (Table) 05/01/23 05/01/23 05/02/23 Range/Units 16:40 20:00 06:00 RBC (3.80-5.40) m/uL Hgb (11.4-16.0) gm/dL Hct (34.0-46.0) % MCHC (31.0-37.0) g/dL Sodium (137-145) mmol/L Glucose (74-99) mg/dL POC Glucose (mg/dL) 265 H 302 H 205 H (70-110) mg/dL 05/02/23 05/02/23 05/02/23 Range/Units 10:13 10:13 11:33 RBC 3.42 L (3.80-5.40) m/uL Hgb 9.9 L (11.4-16.0) gm/dL Hct 32.1 L (34.0-46.0) % MCHC 30.8 L (31.0-37.0) g/dL Sodium 134 L (137-145) mmol/L Glucose 180 H (74-99) mg/dL POC Glucose (mg/dL) 206 H (70-110) mg/dL Microbiology - Last 24 Hours (Table) 04/26/23 19:14 Blood Culture - Final Blood - Imaging and Cardiology CT scan - abdomen: report reviewed CT scan - pelvis: report reviewed Assessment and Plan (1) Uterine carcinoma Current Visit: Yes Status: Acute Priority: High Code(s): C55 - MALIGNANT NEOPLASM OF UTERUS, PART UNSPECIFIED SNOMED Code(s): 812548958 (2) Metastatic cancer Current Visit: Yes Status: Acute Priority: High Code(s): C79.9 - SECONDARY MALIGNANT NEOPLASM OF UNSPECIFIED SITE SNOMED Code(s): 728504499 Plan: Metastatic uterine carcinoma -Still pending reports from Dr. Clark in [place]. Will summarize in this medical record as soon as known. -A 6.2 mm left lower lobe pulmonary nodule, maybe metastatic disease. Thankfully, patient is not having any respiratory symptoms. -Patient reported that she was feeling better for a period of time, after being told on March 30 that she only had about 4 weeks to live. This has changed recently and now she is not feeling well. General c/o-weak, easily tired. Her right abd is starting to cause her more pain in the last day, she feels more distended today. -Patient does understand that her malignancy is not curable, only treatable for some time. She is curious about if there are any treatment options available. Pending review of her previous medical records to be able to tell her if there are any other treatment options available. -Patient is also very open to hospice if, there are no treatment options available or, options that she is interested in trying. -Will Plan for follow-up once patient is discharged from the hospital for now Klebsiella pneumoniae urinary tract infection -Patient is on antibiotics for the same -Possibly a cause/contributing factor for patient's weakness. We will see how she progresses with antibiotics Reviewed CT of the abdomen and pelvis performed 04/25, compared to CT 02/07/22. 6 mm left lower lobe pulmonary nodule. There is an enlarged bilobed mass adjacent to the liver in the right pararenal space, 16.2 x 12.5 x 12.4 cm prior 9.3 x 6.8 cm. Suspect invasion of the hepatic serosal surface, significant mass effect on the ascending colon possible serosal invasion difficult to exclude, no definite obstruction noted.
[2023-05-02 16:17] LABS: Glucose,Whole Blood 230 mg/dL (70-110)
--- NOTE | 2023-05-02 17:19 | P.PN ---
Subjective HISTORY OF PRESENTING ILLNESS Progress Note Date: 04/30/23 This is a 73-year-old female with a past medical history significant for breast cancer, uterine cancer with metastasis, atrial fibrillation, nonsustained ventricular tachycardia, hypertension, diabetes, and hyperlipidemia. Patient follows in the office with Dr. Motta but has not been seen in the office since November 2021 as she has been living out in [place]. We have been asked to see the patient in consultation for atrial fibrillation. Patient examined at the bedside. Patient presented to the hospital for chief complaint of generalized weakness. She also reports that she rolled out of bed the other day but did not sustain any injuries. She denies any chest pain or pressure. She denies any shortness of breath. She denies any palpitations. EKG on admission revealed atrophic relation with RVR. She was started on IV Cardizem. This morning telemetry reveals sinus mechanism with PACs. The patient was previously on Xarelto. However she states that she developed bleeding and anemia with a hemoglobin of 7 which they thought may be related to her metastatic disease and her anticoagulation was discontinued. The patient also reports she was having nonsustained ventricular tachycardia in October 2022 while in [place]. She states that she underwent a stress test which was negative to her knowledge. She denies having a cardiac catheterization. EKG reveals atrial flutter ablation with RVR Chest xray negative for acute process Patient underwent CT abdomen and pelvis on 04/25/2023 revealing enlarging bilobed metastatic lesion anterior right pararenal space with probable invasion of the hepatic serosa. There is no mass effect upon the descending colon with serosal invasion difficult to exclude. New 6 mm pulmonary nodule at the left lung base. Echocardiogram revealed ejection fraction 50-55% with mild AR and mild MR. Patient underwent [employer] loop recorder in March 2021 04/29/2023 Is seen and examined resting comfortably in bed. He continues to have some rare episodes of dizziness/lightheadedness. Denies any chest pain or pressure. She denies any shortness of breath. She remains in atrial fibrillation with relatively well-controlled ventricular response. 04/30/2023 the patient was seen and examined resting in bed. Her dizziness is better. Heart rates are reasonably well controlled. Denies any chest discomfort or shortness of breath. 05/01 Patient seen and examined. Patient with better controlled heart rates in the 90s to low 100s. Patient's sister who is a nurse is concerned with lower blood pressures with systolic 106 and 100 about hold parameters. We discussed holding up systolics less than 100 however would like to minimize amount of holding medications. She has not been lightheaded or dizzy. / Patient seen and examined. Heart rates remained in the 90s to 120s. She states she is feeling much better after receiving double the dose of pain medications. Denies any chest pain or pressure. PHYSICAL EXAMINATION Vital signs reviewed. CONSTITUTIONAL: No apparent distress. HEENT: Head is normocephalic. Pupils are equal, round. Sclerae anicteric. Mucous membranes of the mouth are moist. No JVD. No carotid bruit. CHEST EXAMINATION: Lungs are clear to auscultation. No chest wall tenderness is noted on palpation or with deep breathing. HEART EXAMINATION: Regular rate and rhythm. S1, S2 heard. No murmurs, gallops or rub. ABDOMEN: Soft, nontender. Positive bowel sounds. EXTREMITIES: 2+ peripheral pulses, no lower extremity edema and no calf tenderness. NEUROLOGIC EXAMINATION: Patient is awake, alert and oriented x3. Assessment: Generalized weakness S/P fall from bed with no apparent injuries Fever Atrial fibrillation with RVR, unknown if paroxysmal or persistent History of uterine cancer with metastasis to intra-abdominal cavity and suspected lung with pulmonary nodules noted on recent CT Recent history of bleeding and anemia, thought to be secondary to above History of breast cancer History of nonsustained ventricular tachycardia History of loop recorder implantation Hypertension Hyperlipidemia Diabetes Plan: Heart rates appear fairly well-controlled on current regimen. Mild permissive tachycardia with exertion. No anticoagulation given bleeding and anemia. Continue with supportive care. No further recommendations from cardiology standpoint. Appears stable for DC from cardiology standpoint. Objective - Vital Signs Vital signs: Vital Signs Temp 98.0 F 05/02/23 15:50 Pulse 66 05/02/23 15:50 Resp 16 05/02/23 15:50 BP 129/67 05/02/23 15:50 Pulse Ox 94 L 05/02/23 15:50 FiO2 Intake & Output 05/01/23 05/02/23 05/02/23 18:59 06:59 18:59 Intake Total 476 640 Balance 476 640 Weight 97.522 kg Intake: Oral 476 640 Other: Voiding Method Toilet Toilet Toilet Bedside Commode Bedside Commode Bedside Commode Diaper # Voids 1 2 # Bowel Movements 1 - Labs CBC & Chem 7: 05/02/23 10:13 05/02/23 10:13 Labs: Abnormal Lab Results - Last 24 Hours (Table) 05/01/23 05/02/23 05/02/23 Range/Units 20:00 06:00 10:13 RBC 3.42 L (3.80-5.40) m/uL Hgb 9.9 L (11.4-16.0) gm/dL Hct 32.1 L (34.0-46.0) % MCHC 30.8 L (31.0-37.0) g/dL Sodium (137-145) mmol/L Glucose (74-99) mg/dL POC Glucose (mg/dL) 302 H 205 H (70-110) mg/dL 05/02/23 05/02/23 05/02/23 Range/Units 10:13 11:33 16:15 RBC (3.80-5.40) m/uL Hgb (11.4-16.0) gm/dL Hct (34.0-46.0) % MCHC (31.0-37.0) g/dL Sodium 134 L (137-145) mmol/L Glucose 180 H (74-99) mg/dL POC Glucose (mg/dL) 206 H 230 H (70-110) mg/dL Microbiology - Last 24 Hours (Table) 04/26/23 19:14 Blood Culture - Final Blood
[2023-05-02] MEDS: ATORVASTATIN 20 MG TAB PO SCH (19:55)
[2023-05-02] MEDS: LORazepam 0.5 MG TAB PO SCH (19:56)
[2023-05-02 19:59] LABS: Glucose,Whole Blood 270 mg/dL (70-110)
--- NOTE | 2023-05-02 22:41 | P.PN ---
Subjective Progress Note Date: 05/01/23 Principal diagnosis: Sepsis possible abdominal source Patient is a 73-year-old female with a past medical history significant for metastatic OVARIAN cancer status post surgery and chemoradiation therapy, with recent progression of her disease and a CAT scan done in the outpatient setting on 04/25/2023 did shows invasion of the serosa of the liver as well as COLON Presented to the hospital with weakness fall noticed to be febrile On today's evaluation that is 05/01/2023, patient continues to be afebrile, patient is breathing comfortably on room air, patient denies any chest pain shortness of breath occasional cough , the patient denies N/V or abdominal pain and no diarrhea Objective - Vital Signs Vital signs: Vital Signs Temp 97.3 F L 05/01/23 12:14 Pulse 101 H 05/01/23 12:14 Resp 16 05/01/23 12:14 BP 133/81 05/01/23 12:14 Pulse Ox 96 05/01/23 12:14 FiO2 Intake & Output 04/30/23 05/01/23 05/01/23 18:59 06:59 18:59 Intake Total 240 118 Output Total 200 Balance 240 -200 118 Intake: Oral 240 118 Output: Urine 200 Other: Voiding Method Bedside Commode Bedside Commode # Voids 1 1 - Exam GENERAL DESCRIPTION: An elderly female lying in bed in no distress RESPIRATORY SYSTEM: Unlabored breathing , decreased breath sounds at bases HEART: S1 S2 regular rate and rhythm , ABDOMEN: Soft , no tenderness EXTREMITIES: No edema feet - Labs CBC & Chem 7: 05/02/23 10:13 05/02/23 10:13 Labs: Abnormal Lab Results - Last 24 Hours (Table) 04/30/23 04/30/23 05/01/23 Range/Units 16:07 20:05 06:04 RBC (3.80-5.40) m/uL Hgb (11.4-16.0) gm/dL Hct (34.0-46.0) % Sodium (137-145) mmol/L BUN (7-17) mg/dL Glucose (74-99) mg/dL POC Glucose (mg/dL) 318 H 291 H 233 H (70-110) mg/dL C-Reactive Protein (<1.0) mg/dL 05/01/23 05/01/23 05/01/23 Range/Units 08:32 08:32 11:37 RBC 3.30 L (3.80-5.40) m/uL Hgb 9.6 L (11.4-16.0) gm/dL Hct 31.1 L (34.0-46.0) % Sodium 136 L (137-145) mmol/L BUN 20 H (7-17) mg/dL Glucose 225 H (74-99) mg/dL POC Glucose (mg/dL) 243 H (70-110) mg/dL C-Reactive Protein 14.2 H (<1.0) mg/dL Microbiology - Last 24 Hours (Table) 04/26/23 19:14 Blood Culture - Preliminary Blood Assessment and Plan (1) Sepsis Current Visit: Yes Status: Acute Code(s): A41.9 - SEPSIS, UNSPECIFIED ORGANISM SNOMED Code(s): 36880192 Plan: 1patient to the hospital with sepsis in this patient who did have a fever elevated white count source likely abdominal in this patient who did have a history of metastatic uterine cancer with a recent CAT scan completed on 04/25/2023 did shows invasion of the hepatic serosa as well as ascending colon and concern for possible colitis and will need to cover for the enteric gram- negative both aerobes and anaerobes vs UTI, however pt donot have any urinary symptoms 2patient with a history of penicillin allergy rash no history of anaphylaxis 3the patient urine cultures grew Klebsiella which is a sensitive pathogen , patient is currently on Rocephin and seems to be doing well continue on any patient multiple question of sister answered over the phone Time with Patient: Less than 30
--- NOTE | 2023-05-02 22:42 | P.PN ---
Subjective Progress Note Date: 05/02/23 Principal diagnosis: Sepsis possible abdominal source Patient is a 73-year-old female with a past medical history significant for metastatic OVARIAN cancer status post surgery and chemoradiation therapy, with recent progression of her disease and a CAT scan done in the outpatient setting on 04/25/2023 did shows invasion of the serosa of the liver as well as COLON Presented to the hospital with weakness fall noticed to be febrile On today's evaluation that is 05/02/2023, patient remains to be afebrile, patient is breathing comfortably on room air, patient denies any chest pain shortness of breath occasional cough , the patient has been complaining of more right-sided abdominal pain and nausea but no vomiting or diarrhea Objective - Vital Signs Vital signs: Vital Signs Temp 98.2 F 05/02/23 11:59 Pulse 93 05/02/23 11:59 Resp 16 05/02/23 11:59 BP 141/74 05/02/23 11:59 Pulse Ox 97 05/02/23 11:59 FiO2 Intake & Output 05/01/23 05/02/23 05/02/23 18:59 06:59 18:59 Intake Total 476 240 Balance 476 240 Weight 97.522 kg Intake: Oral 476 240 Other: Voiding Method Toilet Toilet Toilet Bedside Commode Bedside Commode Bedside Commode Diaper # Voids 1 2 # Bowel Movements 1 - Exam GENERAL DESCRIPTION: An elderly female lying in bed in no distress RESPIRATORY SYSTEM: Unlabored breathing , decreased breath sounds at bases HEART: S1 S2 regular rate and rhythm , ABDOMEN: Soft , no tenderness EXTREMITIES: No edema feet - Labs CBC & Chem 7: 05/02/23 10:13 05/02/23 10:13 Labs: Abnormal Lab Results - Last 24 Hours (Table) 05/01/23 05/01/23 05/02/23 Range/Units 16:40 20:00 06:00 RBC (3.80-5.40) m/uL Hgb (11.4-16.0) gm/dL Hct (34.0-46.0) % MCHC (31.0-37.0) g/dL Sodium (137-145) mmol/L Glucose (74-99) mg/dL POC Glucose (mg/dL) 265 H 302 H 205 H (70-110) mg/dL 05/02/23 05/02/23 05/02/23 Range/Units 10:13 10:13 11:33 RBC 3.42 L (3.80-5.40) m/uL Hgb 9.9 L (11.4-16.0) gm/dL Hct 32.1 L (34.0-46.0) % MCHC 30.8 L (31.0-37.0) g/dL Sodium 134 L (137-145) mmol/L Glucose 180 H (74-99) mg/dL POC Glucose (mg/dL) 206 H (70-110) mg/dL Microbiology - Last 24 Hours (Table) 04/26/23 19:14 Blood Culture - Final Blood Assessment and Plan (1) Sepsis Current Visit: Yes Status: Acute Code(s): A41.9 - SEPSIS, UNSPECIFIED ORGANISM SNOMED Code(s): 15470073 Plan: 1patient to the hospital with sepsis in this patient who did have a fever elevated white count source likely abdominal in this patient who did have a history of metastatic uterine cancer with a recent CAT scan completed on 04/25/2023 did shows invasion of the hepatic serosa as well as ascending colon and concern for possible colitis and will need to cover for the enteric gram- negative both aerobes and anaerobes vs UTI, however pt donot have any urinary symptoms 2patient with a history of penicillin allergy rash no history of anaphylaxis 3the patient urine cultures grew Klebsiella which is a sensitive pathogen , patient is currently on Rocephin which will be continued while inpatient and will transition oral antibiotic on discharge Time with Patient: Less than 30
[2023-05-03 06:01] LABS: Glucose,Whole Blood 206 mg/dL (70-110)
[2023-05-03] MEDS: INSULIN DETEMIR (LEVEMIR) 100 UNIT/ML SYR SQ SCH (06:21)
[2023-05-03] MEDS: INSULIN ASPART (NovoLOG) 100 UNIT/ML VIAL SQ SCH ×2 (06:22→11:58)
[2023-05-03] MEDS: FERROUS SULFATE 325 MG TAB PO SCH (09:44)
[2023-05-03] MEDS: METOPROLOL SUCCINATE (ER) 50 MG TAB.ER.24H PO SCH (09:44)
[2023-05-03] MEDS: FAMOTIDINE 20 MG/2 ML VIAL IV SCH (09:44)
[2023-05-03] MEDS: HEPARIN SODIUM,PORCINE/PF 5,000 UNIT/0.5 ML SYRINGE SQ SCH (09:45)
[2023-05-03] MEDS: PREGABALIN 75 MG CAP PO SCH (09:45)
[2023-05-03] MEDS: DULoxetine HCL 20 MG CAPSULE.DR PO SCH ×2 (09:45→11:13)
[2023-05-03] MEDS: metroNIDAZOLE-NS PMX 500 MG in SALINE 1 100ML.BAG IVPB SCH (09:48)
[2023-05-03 11:23] LABS: Glucose,Whole Blood 305 mg/dL (70-110)
[2023-05-03 11:28] VITALS: RESP 14
[2023-05-03 11:46] LABS: HCT 31.6 % (34.0-46.0); HGB 9.7 gm/dL (11.4-16.0); Hypochromasia Marked; MCH 28.6 pg (25.0-35.0); MCHC 30.7 g/dL (31.0-37.0); MCV 93.3 fL (80.0-100.0); Mean Platelet Volume 12.6; Platelet Count 170 k/uL (150-450); RBC 3.38 m/uL (3.80-5.40); RDW 15.1 % (11.5-15.5); WBC 6.6 k/uL (3.8-10.6)
--- NOTE | 2023-05-03 11:59 | P.DS ---
Providers Date of admission: 04/26/23 14:10 Expected date of discharge: 05/03/23 Attending physician: Armando Ulloa MD Consults: 04/26/23 14:10 Consult Physician Routine Consulting Provider: Karan Soliz Consult Reason/Comments: Metastatic cancer Do you want consulting provider notified?: Yes 04/27/23 11:59 Consult Physician Urgent Consulting Provider: Armando Rubin Consult Reason/Comments: febrile illness Do you want consulting provider notified?: Yes Primary care physician: Juan Stark [facility] Course: 73 years old female past medical history of carcinoma of the uterus for more than 5 years, she was in [place] getting chemotherapy treatment, she is status post hysterectomy in 2019, and lately she was found to have more progressive metastatic disease therefore chemotherapy was stopped and told she has few weeks to live so she came back to [place]. She has evidence of metastatic disease to the right lower quadrant abdominal cavity and she was suppose to get surgical resection of her tumor but it starts bleeding and found to flow progressive disease so surgical intervention was canceled. Once she came to [place] she fell doing better and follow-up with her doctor who prescribed her CAT scan of the chest showing more pulmonary metastatic disease. After that she started feeling more weak and lethargic, this morning she was currently able to get out of bed so she came to emergency room. She denies any chest pain or dyspnea or coughing. She denies dysuria or urgency, she denies abdominal pain vomiting or diarrhea, she has mild right lower quadrant abdominal pain but this mostly related to her metastatic disease to her colon As per patient Patient is nonsmoker, she denies alcohol or illicit drugs Patient is a known diabetic and she was using insulin pump but it was not working lately so she took it off 04/27/2023 Patient awake alert, she feels little better today She denies urinary or respiratory symptoms. She is complaining of from nausea and generalized weakness. Also she has some tenderness in the right lower quadrant, right upper quadrant and epigastric area. It is mild with no guarding, no diarrhea. She is hemodynamically stable but she still running fever 101.3 today. Vitals and labs reviewed, glucose elevated. We will add Levemir 10 units today. Remains on normal saline 100 mL, Levaquin 500 mg, Cardizem drip was stopped and metoprolol dose increased to 50 mg. No need for anticoagulation per cardiology's were atrial fibrillation because of risk of GI bleed given her history of the same 04/28/2023 Patient reports improvement today, she has this right-sided abdominal pain and tenderness, his fever is coming down but not completely resolved. WBC is back to normal however production is elevated to 6.1. Urine culture is growing gram-negative bacilli and CT of the chest showing Left lower lobe pulmonary nodule about 6.2 mm. Sugars still elevated, we added 8 units and currently she is going to be on Levemir 18 units daily. Her hemoglobin A1c is not bad at 7.4%. Echocardiogram showed ejection fraction of 50-55%. She remains on cefepime and Flagyl She was complaining of from some mild headache that is not resolved with Tylenol, Fioricet is added. We'll keep close monitoring 04/29 As needed Ativan Daily ordered, NO new complaints 04/30 Slept well with additional dose of ativan, abdominal pain better 05/01 Care plan discussed with infectious disease as well, continue IV antibiotics including Rocephin and Flagyl while inpatient upon discharge were transitioned to Ceftin Inflammatory markers improving 05/02 Patient continued to complain of abdominal pain, goals of care discussed with patient patient pain medication to increase and will be monitored another 24 hours expected discharge home within the next 24 hours 05/03>> patient seen and evaluated and bedside, care plan discussed, pain medication and antibiotic prescription provided patient was tolerating cephalosporin while inpatient Discharge and follow-up with PCP as well as with oncology GENERAL: The patient is alert and oriented x3, not in any acute distress. Obese HEENT: Pupils are round and equally reacting to light. EOMI. No scleral icterus. No conjunctival pallor. Normocephalic, atraumatic. No pharyngeal erythema. No thyromegaly. CARDIOVASCULAR: S1 and S2 present. No murmurs, rubs, or gallops. PULMONARY: Chest is clear to auscultation, no wheezing or crackles. ABDOMEN: Soft, right-sided tenderness Mass palpable , no rebound tenderness, no guarding, nondistended, normoactive bowel sounds. No palpable organomegaly. MUSCULOSKELETAL: No joint swelling or deformity. EXTREMITIES: No cyanosis, clubbing, or pedal edema. NEUROLOGICAL: Gross neurological examination did not reveal any focal deficits. SKIN: No rashes. no petechiae. Assessment: Assessment * Atrial fibrillation with RVR, new onset * Sepsis, Source Intraabdominal * Klebsiella pneumonia urinary tract infection * Metastatic uterine cancer, status post hysterectomy, status post chemotherapy. it looks end-stage with metastasis to the intra-abdominal cavity and probably Lung * Acute kidney injury RESOLVED * Cancer associated pain * Diabetes mellitus with hyperglycemia, present on admission * Obesity Plan: Cardiology consulted, On Metoprolol 50 mg twice a day, not on anticoagulation due to high risk of bleeding Appropriately suspected with IV fluid On Rocephin and Flagyl >> ID Following >> transition to oral Ceftin after disc ussion with infectious disease Hematology/oncology consulted, follow-up with oncology outpatient In regards to diabetes mellitus continue home regimen, metformin Labs and medication were reviewed Patient Condition at Discharge: Fair Plan - Discharge Summary Discharge Rx Participant: No New Discharge Prescriptions: New cefUROXime axetiL [Ceftin] 500 mg PO BID 7 Days #14 tab Metoprolol Succinate (ER) [Toprol XL] 50 mg PO BID 30 Days #60 tab Continue hydrOXYzine HCL [Atarax] 10 - 20 mg PO HS PRN PRN Reason: Anxiety metFORMIN HCL ER [Glucophage XR] 500 mg PO PC-BID DULoxetine HCL [Cymbalta] 40 mg PO DAILY LORazepam [Ativan] 1 mg PO TID PRN PRN Reason: Anxiety Ondansetron Odt [Zofran ODT] 4 mg PO Q8HR PRN PRN Reason: Nausea And Vomiting Pregabalin [Lyrica] 75 mg PO BID Omeprazole 20 mg PO DAILY Ferrous Sulfate [Iron (65 MG Elemental)] 325 mg PO DAILY Sennosides/Docusate Sodium [Senna Plus 8.6-50 mg Tablet] 2 tab PO BID PRN PRN Reason: Constipation oxyCODONE HCL [Roxicodone] 5 mg PO Q6HR PRN 3 Days #12 tab PRN Reason: Pain Discontinued Naloxegol Oxalate [Movantik] 25 mg PO DAILY PRN PRN Reason: Constipation Metoprolol Succinate (ER) [Toprol Xl] 25 mg PO BID Discharge Medication List DULoxetine HCL [Cymbalta] 40 mg PO DAILY 04/26/23 [History] Ferrous Sulfate [Iron (65 MG Elemental)] 325 mg PO DAILY 04/26/23 [History] LORazepam [Ativan] 1 mg PO TID PRN 04/26/23 [History] Omeprazole 20 mg PO DAILY 04/26/23 [History] Ondansetron Odt [Zofran ODT] 4 mg PO Q8HR PRN 04/26/23 [History] Pregabalin [Lyrica] 75 mg PO BID 04/26/23 [History] Sennosides/Docusate Sodium [Senna Plus 8.6-50 mg Tablet] 2 tab PO BID PRN 04/26/23 [History] hydrOXYzine HCL [Atarax] 10 - 20 mg PO HS PRN 04/26/23 [History] metFORMIN HCL ER [Glucophage XR] 500 mg PO PC-BID 04/26/23 [History] Metoprolol Succinate (ER) [Toprol XL] 50 mg PO BID 30 Days #60 tab 05/03/23 [Rx] cefUROXime axetiL [Ceftin] 500 mg PO BID 7 Days #14 tab 05/03/23 [Rx] oxyCODONE HCL [Roxicodone] 5 mg PO Q6HR PRN 3 Days #12 tab 05/03/23 [Rx] Follow up Appointment(s)/Referral(s): Kay Martinez MD [Primary Care Provider] - 1-2 days Eric Henry MD [STAFF PHYSICIAN] - 05/16/23 2:00 pm Discharge Disposition: HOME WITH HOME HEALTH SERVICES
--- NOTE | 2023-05-03 12:49 | P.DS ---
Providers Date of admission: 04/26/23 14:10 Expected date of discharge: 05/03/23 Attending physician: Armando Ulloa MD Consults: 04/26/23 14:10 Consult Physician Routine Consulting Provider: Karan Soliz Consult Reason/Comments: Metastatic cancer Do you want consulting provider notified?: Yes 04/27/23 11:59 Consult Physician Urgent Consulting Provider: Armando Rubin Consult Reason/Comments: febrile illness Do you want consulting provider notified?: Yes Primary care physician: Juan [facility] Course: 73 years old female past medical history of carcinoma of the uterus for more than 5 years, she was in [place] getting chemotherapy treatment, she is status post hysterectomy in 2019, and lately she was found to have more progressive metastatic disease therefore chemotherapy was stopped and told she has few weeks to live so she came back to [place]. She has evidence of metastatic disease to the right lower quadrant abdominal cavity and she was suppose to get surgical resection of her tumor but it starts bleeding and found to flow progressive disease so surgical intervention was canceled. Once she came to [place] she fell doing better and follow-up with her doctor who prescribed her CAT scan of the chest showing more pulmonary metastatic disease. After that she started feeling more weak and lethargic, this morning she was currently able to get out of bed so she came to emergency room. She denies any chest pain or dyspnea or coughing. She denies dysuria or urgency, she denies abdominal pain vomiting or diarrhea, she has mild right lower quadrant abdominal pain but this mostly related to her metastatic disease to her colon As per patient Patient is nonsmoker, she denies alcohol or illicit drugs Patient is a known diabetic and she was using insulin pump but it was not working lately so she took it off 04/27/2023 Patient awake alert, she feels little better today She denies urinary or respiratory symptoms. She is complaining of from nausea and generalized weakness. Also she has some tenderness in the right lower quadrant, right upper quadrant and epigastric area. It is mild with no guarding, no diarrhea. She is hemodynamically stable but she still running fever 101.3 today. Vitals and labs reviewed, glucose elevated. We will add Levemir 10 units today. Remains on normal saline 100 mL, Levaquin 500 mg, Cardizem drip was stopped and metoprolol dose increased to 50 mg. No need for anticoagulation per cardiology's were atrial fibrillation because of risk of GI bleed given her history of the same 04/28/2023 Patient reports improvement today, she has this right-sided abdominal pain and tenderness, his fever is coming down but not completely resolved. WBC is back to normal however production is elevated to 6.1. Urine culture is growing gram-negative bacilli and CT of the chest showing Left lower lobe pulmonary nodule about 6.2 mm. Sugars still elevated, we added 8 units and currently she is going to be on Levemir 18 units daily. Her hemoglobin A1c is not bad at 7.4%. Echocardiogram showed ejection fraction of 50-55%. She remains on cefepime and Flagyl She was complaining of from some mild headache that is not resolved with Tylenol, Fioricet is added. We'll keep close monitoring 04/29 As needed Ativan Daily ordered, NO new complaints 04/30 Slept well with additional dose of ativan, abdominal pain better 05/01 Care plan discussed with infectious disease as well, continue IV antibiotics including Rocephin and Flagyl while inpatient upon discharge were transitioned to Ceftin Inflammatory markers improving 05/02 Patient continued to complain of abdominal pain, goals of care discussed with patient patient pain medication to increase and will be monitored another 24 hours expected discharge home within the next 24 hours 05/03>> patient seen and evaluated and bedside, care plan discussed, pain medication and antibiotic prescription provided patient was tolerating cephalosporin while inpatient Discharge and follow-up with PCP as well as with oncology GENERAL: The patient is alert and oriented x3, not in any acute distress. Obese HEENT: Pupils are round and equally reacting to light. EOMI. No scleral icterus. No conjunctival pallor. Normocephalic, atraumatic. No pharyngeal erythema. No thyromegaly. CARDIOVASCULAR: S1 and S2 present. No murmurs, rubs, or gallops. PULMONARY: Chest is clear to auscultation, no wheezing or crackles. ABDOMEN: Soft, right-sided tenderness Mass palpable , no rebound tenderness, no guarding, nondistended, normoactive bowel sounds. No palpable organomegaly. MUSCULOSKELETAL: No joint swelling or deformity. EXTREMITIES: No cyanosis, clubbing, or pedal edema. NEUROLOGICAL: Gross neurological examination did not reveal any focal deficits. SKIN: No rashes. no petechiae. Assessment: Assessment * Atrial fibrillation with RVR, new onset * Sepsis, Source Intraabdominal * Klebsiella pneumonia urinary tract infection * Metastatic uterine cancer, status post hysterectomy, status post chemotherapy. it looks end-stage with metastasis to the intra-abdominal cavity and probably Lung * Acute kidney injury RESOLVED * Cancer associated pain * Diabetes mellitus with hyperglycemia, present on admission * Obesity Plan: Cardiology consulted, On Metoprolol 50 mg twice a day, not on anticoagulation due to high risk of bleeding Appropriately suspected with IV fluid On Rocephin and Flagyl >> ID Following >> transition to oral Ceftin after dis cussion with infectious disease Hematology/oncology consulted, follow-up with oncology outpatient In regards to diabetes mellitus continue home regimen, metformin, patient given Lantus and correctional insulin Labs and medication were reviewed Assessment: Assessment * Atrial fibrillation with RVR, new onset * Sepsis, Source Intraabdominal * Klebsiella pneumonia urinary tract infection * Metastatic uterine cancer, status post hysterectomy, status post chemotherapy. it looks end-stage with metastasis to the intra-abdominal cavity and probably Lung * Acute kidney injury RESOLVED * Cancer associated pain * Diabetes mellitus with hyperglycemia, present on admission * Obesity Plan: Cardiology consulted, On Metoprolol 50 mg twice a day, not on anticoagulation due to high risk of bleeding Appropriately suspected with IV fluid On Rocephin and Flagyl >> ID Following >> transition to oral Ceftin after discussion with infectious disease Hematology/oncology consulted, follow-up with oncology outpatient In regards to diabetes mellitus continue home regimen, metformin Labs and medication were reviewed Patient Condition at Discharge: Fair Plan - Discharge Summary Discharge Rx Participant: No New Discharge Prescriptions: New Insulin Detemir (Levemir) [Levemir] 18 unit SQ DAILY@0700 30 Days #30 each INSULIN ASPART (NovoLOG) [NovoLOG (formulary)] See Rx Instructions .ROUTE .COMPLEX 30 Days #30 each cefUROXime axetiL [Ceftin] 500 mg PO BID 7 Days #14 tab Metoprolol Succinate (ER) [Toprol XL] 50 mg PO BID 30 Days #60 tab Naloxegol Oxalate [Movantik] 25 mg PO DAILY PRN 30 Days #30 tablet PRN Reason: Constipation Continue hydrOXYzine HCL [Atarax] 10 - 20 mg PO HS PRN PRN Reason: Anxiety metFORMIN HCL ER [Glucophage XR] 500 mg PO PC-BID DULoxetine HCL [Cymbalta] 40 mg PO DAILY LORazepam [Ativan] 1 mg PO TID PRN PRN Reason: Anxiety Ondansetron Odt [Zofran ODT] 4 mg PO Q8HR PRN PRN Reason: Nausea And Vomiting Pregabalin [Lyrica] 75 mg PO BID Omeprazole 20 mg PO DAILY Ferrous Sulfate [Iron (65 MG Elemental)] 325 mg PO DAILY Sennosides/Docusate Sodium [Senna Plus 8.6-50 mg Tablet] 2 tab PO BID PRN PRN Reason: Constipation oxyCODONE HCL [Roxicodone] 5 mg PO Q6HR PRN 3 Days #12 tab PRN Reason: Pain Discontinued Naloxegol Oxalate [Movantik] 25 mg PO DAILY PRN PRN Reason: Constipation Metoprolol Succinate (ER) [Toprol Xl] 25 mg PO BID Discharge Medication List DULoxetine HCL [Cymbalta] 40 mg PO DAILY 04/26/23 [History] Ferrous Sulfate [Iron (65 MG Elemental)] 325 mg PO DAILY 04/26/23 [History] LORazepam [Ativan] 1 mg PO TID PRN 04/26/23 [History] Omeprazole 20 mg PO DAILY 04/26/23 [History] Ondansetron Odt [Zofran ODT] 4 mg PO Q8HR PRN 04/26/23 [History] Pregabalin [Lyrica] 75 mg PO BID 04/26/23 [History] Sennosides/Docusate Sodium [Senna Plus 8.6-50 mg Tablet] 2 tab PO BID PRN 04/26/23 [History] hydrOXYzine HCL [Atarax] 10 - 20 mg PO HS PRN 04/26/23 [History] metFORMIN HCL ER [Glucophage XR] 500 mg PO PC-BID 04/26/23 [History] INSULIN ASPART (NovoLOG) [NovoLOG (formulary)] See Rx Instructions .ROUTE .COMPLEX 30 Days #30 each 05/03/23 [Rx] Insulin Detemir (Levemir) [Levemir] 18 unit SQ DAILY@0700 30 Days #30 each 05/03/23 [Rx] Metoprolol Succinate (ER) [Toprol XL] 50 mg PO BID 30 Days #60 tab 05/03/23 [Rx] Naloxegol Oxalate [Movantik] 25 mg PO DAILY PRN 30 Days #30 tablet 05/03/23 [Rx] cefUROXime axetiL [Ceftin] 500 mg PO BID 7 Days #14 tab 05/03/23 [Rx] oxyCODONE HCL [Roxicodone] 5 mg PO Q6HR PRN 3 Days #12 tab 05/03/23 [Rx] Follow up Appointment(s)/Referral(s): Karan Soliz MD [STAFF PHYSICIAN] - As Needed (Called to schedule an appointment as needed he was the provider who saw you in the hospital) Kay Martinez MD [Primary Care Provider] - 1-2 days Patient Instructions/Handouts: A-fib (Atrial Fibrillation) (DC), Sepsis (DC) Discharge Disposition: HOME WITH HOME HEALTH SERVICES
[2023-05-03 12:58] VITALS: BP 133/64; PULSE 102; TEMP 96.6
--- NOTE | 2023-05-03 14:01 | P.PN ---
Subjective Progress Note Date: 05/03/23 Principal diagnosis: Sepsis possible abdominal source Patient is a 73-year-old female with a past medical history significant for metastatic OVARIAN cancer status post surgery and chemoradiation therapy, with recent progression of her disease and a CAT scan done in the outpatient setting on 04/25/2023 did shows invasion of the serosa of the liver as well as COLON Presented to the hospital with weakness fall noticed to be febrile On today's evaluation that is 05/03/2023, patient continues to be afebrile, patient is breathing comfortably on room air, patient denies any chest pain shortness of breath occasional cough , the patient denies any nausea and vomiting abdominal pain has decreased in intensity complaining of some constipation and no diarrhea Objective - Vital Signs Vital signs: Vital Signs Temp 98.5 F 05/03/23 04:00 Pulse 100 05/03/23 04:00 Resp 18 05/03/23 04:00 BP 138/75 05/03/23 04:00 Pulse Ox 96 05/03/23 07:50 FiO2 Intake & Output 05/02/23 05/03/23 05/03/23 18:59 06:59 18:59 Intake Total 880 237 Balance 880 237 Weight 97.522 kg Intake: Oral 880 237 Other: Voiding Method Toilet Toilet # Voids 1 0 - Exam GENERAL DESCRIPTION: An elderly female lying in bed in no distress RESPIRATORY SYSTEM: Unlabored breathing , decreased breath sounds at bases HEART: S1 S2 regular rate and rhythm , ABDOMEN: Soft , no tenderness EXTREMITIES: No edema feet - Labs CBC & Chem 7: 05/03/23 08:37 05/02/23 10:13 Labs: Abnormal Lab Results - Last 24 Hours (Table) 05/02/23 05/02/23 05/02/23 Range/Units 10:13 10:13 11:33 RBC 3.42 L (3.80-5.40) m/uL Hgb 9.9 L (11.4-16.0) gm/dL Hct 32.1 L (34.0-46.0) % MCHC 30.8 L (31.0-37.0) g/dL Sodium 134 L (137-145) mmol/L Glucose 180 H (74-99) mg/dL POC Glucose (mg/dL) 206 H (70-110) mg/dL 05/02/23 05/02/23 05/03/23 Range/Units 16:15 19:58 06:00 RBC (3.80-5.40) m/uL Hgb (11.4-16.0) gm/dL Hct (34.0-46.0) % MCHC (31.0-37.0) g/dL Sodium (137-145) mmol/L Glucose (74-99) mg/dL POC Glucose (mg/dL) 230 H 270 H 206 H (70-110) mg/dL Microbiology - Last 24 Hours (Table) 04/26/23 19:14 Blood Culture - Final Blood Assessment and Plan (1) Sepsis Current Visit: Yes Status: Acute Code(s): A41.9 - SEPSIS, UNSPECIFIED ORGANISM SNOMED Code(s): 56622584 Plan: 1patient to the hospital with sepsis in this patient who did have a fever elevated white count source likely abdominal in this patient who did have a history of metastatic uterine cancer with a recent CAT scan completed on 04/25/2023 did shows invasion of the hepatic serosa as well as ascending colon a nd concern for possible colitis and will need to cover for the enteric gram- negative both aerobes and anaerobes vs UTI, 2patient with a history of penicillin allergy rash no history of anaphylaxis 3the patient urine cultures grew Klebsiella which is a sensitive pathogen , patient has shown overall clinical improvement on Rocephin plan to finish therapy with oral Ceftin discussed with the admitting physician working on discharge Time with Patient: Less than 30
[2023-05-03] MEDS: PROMETHAZINE 25 MG TAB PO PRN (14:43)
== END 2023-05-03 15:44 | disposition home health service (06) | DRG 872 ==
LOC: EC 10:50 → 3SCARD 14:10
PROVIDERS: ADMIT Internal Medicine; ATTEND Internal Medicine
DX: A41.59 Other Gram-negative sepsis (principal); N39.0 Urinary tract infection, site not specified; C78.00 Secondary malignant neoplasm of unspecified lung; C78.5 Secondary malignant neoplasm of large intestine and rectum; C79.89 Secondary malignant neoplasm of other specified sites; D84.9 Immunodeficiency, unspecified; N17.9 Acute kidney failure, unspecified; I47.29 Other ventricular tachycardia; Z91.81 History of falling; B96.1 Klebsiella pneumoniae [K. pneumoniae] as the cause of diseases classified elsewhere; C55 Malignant neoplasm of uterus, part unspecified; I95.9 Hypotension, unspecified; E66.9 Obesity, unspecified; Z68.38 Body mass index [BMI] 38.0-38.9, adult; E78.5 Hyperlipidemia, unspecified; E86.0 Dehydration; G89.3 Neoplasm related pain (acute) (chronic); I10 Essential (primary) hypertension; E11.9 Type 2 diabetes mellitus without complications; I48.91 Unspecified atrial fibrillation; G43.909 Migraine, unspecified, not intractable, without status migrainosus; Z20.822 Contact with and (suspected) exposure to COVID-19; Z51.5 Encounter for palliative care; Z79.4 Long term (current) use of insulin; Z79.84 Long term (current) use of oral hypoglycemic drugs; Z79.899 Other long term (current) drug therapy; Z85.42 Personal history of malignant neoplasm of other parts of uterus; Z85.3 Personal history of malignant neoplasm of breast; Z85.43 Personal history of malignant neoplasm of ovary; Z90.710 Acquired absence of both cervix and uterus; Z92.21 Personal history of antineoplastic chemotherapy; Z92.3 Personal history of irradiation; Z90.13 Acquired absence of bilateral breasts and nipples; Z87.01 Personal history of pneumonia (recurrent)
CPT/HCPCS: 36415; 71046; 71260; 80048; 80053; 81001; 83036; 83605; 83735; 84145; 84443; 84484; 85025; 85027; 85610; 85730; 86140; 87040; 87045; 87046; 87077; 87086; 87186; 87636; 93005; 93306; 94760; 96365; 96366; 96372; 96375; 99285